=== PATIENT | male | born 1955 | race Caucasian/White ===

== ENCOUNTER 2017-06-23 16:28 | Inpatient (IN) ==
--- NOTE | 2017-06-23 17:00 | Emergency Department Note ---
Disposition Clinical Impression: SOB (shortness of breath), Hypoxia, JOSIE (acute kidney injury) Fever Qualifiers: Fever type: unspecified Qualified Code(s): R50.9 - Fever, unspecified Sepsis Qualifiers: Sepsis type: sepsis due to unspecified organism Qualified Code(s): A41.9 - Sepsis, unspecified organism Disposition: Admitted As Inpatient Condition: Serious Time of Disposition: 22:55 Fever HPI - General Chief Complaint: ED Fever Stated Complaint: fever Time Seen by Provider: 06/23/17 16:30 Source: patient, EMS Limitations: no limitations Nursing Notes Reviewed: Yes Vital Signs Reviewed: Yes - History of Present Illness HPI Narrative: 60-year-old male brought in via EMS from [facility] for fever, shortness of breath, weakness, and bilateral pitting edema x 1 day nausea vomiting and diarrhea started today. Patient has a history of renal transplant in 2000 and is on cyclosporine. EMS states that the resident's at a assisted are all sick with the same symptoms. Patient complains of 4 bouts of watery stool, hypertensive vomiting, no blood in either secretions. Patient denies a history of CHF, SD, COPD. Patient denies any recent surgeries within the past 2 months, prior history of PE or DVT, and history of neoplasm - Related Data Home Medications Medication Instructions Recorded Confirmed Acetaminophen [Non-Aspirin] 325 mg PO Q6H PRN 06/23/17 06/23/17 Allopurinol [Zyloprim] 300 mg PO DAILY 06/23/17 06/23/17 Aspirin [Lo-Dose Aspirin EC] 81 mg PO DAILY 06/23/17 06/23/17 Atenolol [Tenormin] 25 mg PO BID 06/23/17 06/23/17 Docusate Sodium [Dok] 200 mg PO QAM 06/23/17 06/23/17 Ergocalciferol (VITAMIN D2) 50,000 unit PO DAILY 06/23/17 06/23/17 [Vitamin D2] Famotidine [Heartburn Prevention] 20 mg PO DAILY 06/23/17 06/23/17 Furosemide [Lasix] 20 mg PO BID 06/23/17 06/23/17 Loratadine [Allergy Relief] 10 mg PO DAILY 06/23/17 06/23/17 Potassium Chloride [K-Tab ER] 20 meq PO QAM 06/23/17 06/23/17 Pravastatin Sodium [Pravachol] 40 mg PO HS 06/23/17 06/23/17 Sennosides/Docusate Sodium 2 tab PO DAILY PRN 06/23/17 06/23/17 [Senna-Docusate Sodium Tablet] Sertraline [Zoloft] 25 mg PO DAILY 06/23/17 06/23/17 Sulfamethoxazole/Trimeth DS 1 tab PO QAM 06/23/17 06/23/17 [Bactrim DS] amLODIPine [Norvasc] 5 mg PO DAILY 06/23/17 06/23/17 cycloSPORINE [Cyclosporine] 100 mg PO BID 06/23/17 06/23/17 predniSONE [PredniSONE] 10 mg PO DAILY 06/23/17 06/23/17 Allergies Allergy/AdvReac Type Severity Reaction Status Date / Time No Known Allergies Allergy Verified 06/19/15 16:58 All systems ED: reviewed and negative except as stated. Review of Systems: As Per HPI Constitutional: Reports: fever, weakness Respiratory: Reports: dyspnea Gastrointestinal: Reports: nausea, vomiting, diarrhea Fever PMH - Past Medical History Medical history: Reports: hyperlipidemia, hypertension Surgical history: Reports: other (renal transplant) Psychiatric history: Reports: depression - Social History Smoking Status: Former smoker Alcohol use: Reports: occasionally Drug use: Reports: none Physical Exam Vital Signs Temperature 98.1 F 06/23/17 16:31 Pulse Rate 100 06/23/17 16:31 Respiratory Rate 18 06/23/17 16:31 Blood Pressure 136/76 06/23/17 16:31 O2 Sat by Pulse Oximetry 84 06/23/17 16:31 Temperature 98.1 F 06/23/17 16:31 Pulse Rate 100 06/23/17 16:31 Respiratory Rate 18 06/23/17 16:31 Blood Pressure 136/76 06/23/17 16:31 O2 Sat by Pulse Oximetry 95 06/23/17 16:54 Oxygen Delivery Oxygen Delivery Nasal Cannula CONSTITUTIONAL: Ill-appearing but nontoxic appearing; well-nourished; A&O X 3, in apparent distress. Patient is panting and has conversational dyspnea HEAD: Normocephalic; atraumatic EYES: PERRL, no scleral icterus NOSE: The nose is normal in appearance without rhinorrhea NECK: No JVD or distended neck veins RESP: Shallow chest excursion with respiration; breath sounds clear and equal bilaterally in upper lung ; no wheezes, rhonchi, but rales bilateral lower lung [place] CARD: Regular rhythm initially, but when patient was placed on a monitor and heart rate read 209 bpm. Heart was auscultated again very fast rhythm heard with Gallops without murmurs, rub ABD: Non-distended; tender to palpation in left lower quadrant and right lower quadrant surrounding patient's kidney implant, soft, without rigidity, rebound or guarding,no pulsatile mass CHEST: No pain with palpation SKIN: Normal for age and race; warm and dry without diaphoresis ; no apparent lesions EXTREMITIES: Pulses are 2 plus and equal times 4 extremities, no muscle tenderness but bilateral 3+ pitting edema in lower extremities - General Limitations: no limitations General appearance: alert, in no apparent distress Course Course Narrative: Pt had - Reevaluation(s) Reevaluation #1: covering for Sepsis since patient is immunosuppressed and history of fever at the assisted and is currently tachycardic. Patient is afebrile now but was given Tylenol 2 hours ago. Time: 17:46 Reevaluation #2: Patient's treatment is in progress but is still waiting for the rest of his antibiotics to be brought up from pharmacy. Patient states she has no complaints at this time Time: 19:26 Reevaluation #3: pt is doing well. breathing is improved. Time: 20:13 - Consultations Consultation #1: Dr. Chopra the hospitalist acceptted the patient for admission Time: 21:09 Vital Signs Temperature 98.1 F 06/23/17 16:31 Pulse Rate 100 06/23/17 16:31 Respiratory Rate 18 06/23/17 16:31 Blood Pressure 136/76 06/23/17 16:31 O2 Sat by Pulse Oximetry 84 06/23/17 16:31 Temperature 100.2 F H 06/23/17 22:05 Pulse Rate 91 06/23/17 20:16 Respiratory Rate 20 06/23/17 22:05 Blood Pressure 172/96 06/23/17 22:05 O2 Sat by Pulse Oximetry 94 06/23/17 20:16 Oxygen Delivery Oxygen Delivery Nasal Cannula Fever - MDM Narrative Medical decision making narrative: Patient is primarily concerned for sepsis given patient's status of immunosuppression with associated high fever recorded earlier at the detention facility. Patient has hypoxia severe shortness of breath orthopnea which is concerning for acute CHF, diarrhea with nausea and vomiting concerning for C. difficile. Patient has tenderness around his implanted kidney site which also raises concern for possible complication of the graft to include infection, or failure. Patient started on 1500 mg of IV vancomycin and 2 g of IV cefepime as well as broad-spectrum antibiotics to cover for possible sepsis. Patient was given one 500 mL bolus of IV fluids for his elevation of creatinine which is mild but given the patient only has one kidney that was transplanted patient is at risk for serious renal complications. Patient's chest x-ray shows pulmonary vascular congestion, and along with bilateral pitting edema sign of possible CHF. This may be due to complications of his renal system. Review of patient's labs show negative lactic acid, negative elevation of troponin, negative elevation of WBC. Currently there is no identification of a infectious source but patient is being assessed for C. difficile, and awaiting culture results. Regardless, the patient is expected to be admitted for further treatment and evaluation. Patient understands and agrees to treatment plan for admission. Patient was accepted for admission by Dr. Chopra the hospitalist in improved condition what he was when he was brought in by EMS. Patient is breathing better but still needs supplemental O2 to maintain his O2 sats above 90%. 40 mg IV Lasix ordered and administered to patient. - Lab Data Lab results reviewed: Yes I reviewed the patient's lab results. Lab results narrative: Short CBC 06/23/17 Range/Units 17:19 WBC 8.8 (4.3-11.1) K/mcL Hgb 14.3 (12.9-16.9) g/dL Hct 42.2 (37.5-50.1) % Plt Count 136 L (140-400) K/mcL Neutrophils # 7.5 (1.6-8.9) K/mcL BMP 06/23/17 Range/Units 16:53 Sodium 139 (136-145) mEq/L Potassium 4.2 (3.5-5.1) mEq/L Chloride 107 (98-107) mEq/L Carbon Dioxide 28 (23-29) mEq/L BUN 28 H (8-23) mg/dL Creatinine 1.39 H (0.70-1.30) mg/dL Glucose 113 H (70-105) mg/dL Calcium 8.5 L (8.6-10.3) mg/dL Cardiac Enzymes 06/23/17 Range/Units 16:49 Troponin I < 0.03 (< 0.04) ng/mL Urine 06/23/17 Range/Units 19:05 Urine Color Yellow (Yellow) Urine Clarity Clear (Clear) Urine pH 6.0 (5.0-8.0) pH Units Ur Specific [place] 1.018 (1.010-1.025) Urine Protein 100 H (Neg-Trace) mg/dL Urine Glucose (UA) Normal (Normal) mg/dL Result diagrams: 06/23/17 17:19 06/23/17 16:53 Lab Results 06/23/17 06/23/17 06/23/17 Range/Units 16:49 16:53 17:19 WBC 8.8 (4.3-11.1) K/mcL RBC 4.09 L (4.19-5.50) M/mcL Hgb 14.3 (12.9-16.9) g/dL Hct 42.2 (37.5-50.1) % MCV 103.2 H (83.0-100.0) fL MCH 35.0 H (28.0-33.3) pg MCHC 33.9 (31.6-35.5) g/dL RDW 13.8 (11.5-14.5) % Plt Count 136 L (140-400) K/mcL MPV 10.6 (9.4-12.4) fL Immature Gran % 0.2 (0-4) % Seg Neutrophils % 85.5 % Lymphocytes % 1.6 % Monocytes % 10.6 % Eosinophils % 2.0 % Basophils % 0.1 % Neutrophils # 7.5 (1.6-8.9) K/mcL Lymphocytes # 0.1 L (0.6-4.6) K/mcL Monocytes # 0.9 (0.0-1.3) K/mcL Eosinophils # 0.2 (0.0-0.6) K/mcL Basophils # 0.0 (0.0-0.2) K/mcL Platelet Estimate Slight Decrease L (Normal) Sodium 139 (136-145) mEq/L Potassium 4.2 (3.5-5.1) mEq/L Chloride 107 (98-107) mEq/L Carbon Dioxide 28 (23-29) mEq/L BUN 28 H (8-23) mg/dL Creatinine 1.39 H (0.70-1.30) mg/dL Est GFR ( Amer) > 60 (> 60) Est GFR (Non-Af Amer) 52 L (> 60) BUN/Creatinine Ratio 20 (6-26) Glucose 113 H (70-105) mg/dL Calculated Osmolality 294 (280-300) Lactic Acid (0.5-2.2) mmol/L Calcium 8.5 L (8.6-10.3) mg/dL Troponin I < 0.03 (< 0.04) ng/mL Urine Color (Yellow) Urine Clarity (Clear) Urine pH (5.0-8.0) pH Units Ur Specific [place] (1.010-1.025) Urine Protein (Neg-Trace) mg/dL Urine Glucose (UA) (Normal) mg/dL Urine Ketones (Negative) mg/dL Urine Blood (Negative) Urine Nitrite (Negative) Urine Bilirubin (Negative) Urine Urobilinogen (Normal) mg/dL Ur Leukocyte Esterase (Negative) Urine Microscopic RBC (0-3) per hpf Urine Microscopic WBC (0-3) per hpf Ur Squamous Epith Cells (None-Few) per lpf Urine Bacteria (None-Few) per hpf Hyaline Casts (None-Few) per lpf Ur Culture Indicated? (NO) 06/23/17 06/23/17 Range/Units 17:24 19:05 WBC (4.3-11.1) K/mcL RBC (4.19-5.50) M/mcL Hgb (12.9-16.9) g/dL Hct (37.5-50.1) % MCV (83.0-100.0) fL MCH (28.0-33.3) pg MCHC (31.6-35.5) g/dL RDW (11.5-14.5) % Plt Count (140-400) K/mcL MPV (9.4-12.4) fL Immature Gran % (0-4) % Seg Neutrophils % % Lymphocytes % % Monocytes % % Eosinophils % % Basophils % % Neutrophils # (1.6-8.9) K/mcL Lymphocytes # (0.6-4.6) K/mcL Monocytes # (0.0-1.3) K/mcL Eosinophils # (0.0-0.6) K/mcL Basophils # (0.0-0.2) K/mcL Platelet Estimate (Normal) Sodium (136-145) mEq/L Potassium (3.5-5.1) mEq/L Chloride (98-107) mEq/L Carbon Dioxide (23-29) mEq/L BUN (8-23) mg/dL Creatinine (0.70-1.30) mg/dL Est GFR ( Amer) (> 60) Est GFR (Non-Af Amer) (> 60) BUN/Creatinine Ratio (6-26) Glucose (70-105) mg/dL Calculated Osmolality (280-300) Lactic Acid 1.0 (0.5-2.2) mmol/L Calcium (8.6-10.3) mg/dL Troponin I (< 0.04) ng/mL Urine Color Yellow (Yellow) Urine Clarity Clear (Clear) Urine pH 6.0 (5.0-8.0) pH Units Ur Specific [place] 1.018 (1.010-1.025) Urine Protein 100 H (Neg-Trace) mg/dL Urine Glucose (UA) Normal (Normal) mg/dL Urine Ketones Negative (Negative) mg/dL Urine Blood Negative (Negative) Urine Nitrite Negative (Negative) Urine Bilirubin Small H (Negative) Urine Urobilinogen Normal (Normal) mg/dL Ur Leukocyte Esterase Negative (Negative) Urine Microscopic RBC 0-3 (0-3) per hpf Urine Microscopic WBC 0-3 (0-3) per hpf Ur Squamous Epith Cells Few (None-Few) per lpf Urine Bacteria None Seen (None-Few) per hpf Hyaline Casts None Seen (None-Few) per lpf Ur Culture Indicated? NO (NO) - Radiology Data Radiology results reviewed: Yes I reviewed the patient's radiology results. Chest X-Ray 06/23/17 16:49 IMPRESSION: Mild cardiomegaly. Pulmonary vascular congestion versus AP expiratory technique on a large patient. Lungs are otherwise clear. Bilateral shoulder arthropathy. D/ / Emerson Pereira MD / Emerson Pereira MD Interpreting Provider: Emerson Pereira MD - EKG Data EKG attestation: Yes I reviewed and interpreted this EKG. EKG results narrative: EKG taken in June 2017 at 1640 hrs. shows sinus rhythm at a rate of [address] elevations or depressions in the leads, no QRS widening or QT prolongation. Signs of Brugada, Wellens, WPW. However there is T-wave inversion in aVL.
[2017-06-23] MEDS ORDERED: Ondansetron 4 MG/2 ML VIAL IVP PRN ×2 (17:01→21:08)
[2017-06-23] MEDS ORDERED: Vancomycin (wt based) 1,000 MG VIAL IVPB SCH (18:00)
[2017-06-23 18:04] LABS: BUN/Creatinine Ratio 20 (6-26); Blood Urea Nitrogen 28 mg/dL (8-23); Calcium 8.5 mg/dL (8.6-10.3); Carbon Dioxide 28 mEq/L (23-29); Chloride 107 mEq/L (98-107); Glucose 113 mg/dL (70-105); Osmolality,Calculated 294 (280-300); Potassium 4.2 mEq/L (3.5-5.1); Sodium 139 mEq/L (136-145); eGFR For African Americans > 60 (> 60); eGFR For Non-African Americans 52 (> 60)
[2017-06-23] MEDS ORDERED: Vancomycin (wt based) 1,000 MG VIAL IVPB ONE (18:20)
[2017-06-23] MEDS ORDERED: 0.9 % Sodium Chloride 500 ML IVC ONE (19:10)
[2017-06-23 19:21] LABS: Bilirubin,Urine Small (Negative); Blood,Urine Negative (Negative); Clarity,Urine Clear (Clear); Color,Urine Yellow (Yellow); Glucose,Urine (UA) Normal (Normal); Ketones,Urine Negative (Negative); Leukocyte Esterase,Urine Negative (Negative); Nitrite,Urine Negative (Negative); Protein,Urine 100 mg/dL (Neg-Trace); Specific Gravity,Urine 1.018 (1.010-1.025); Urobilinogen,Urine Normal (Normal)
[2017-06-23 19:25] LABS: Bacteria,Urine None Seen per hpf (None-Few); Hyaline Casts,Urine None Seen per lpf (None-Few); RBC,Urine 0-3 per hpf (0-3); Squamous Epithelial Cell,Urine Few per lpf (None-Few); WBC,Urine 0-3 per hpf (0-3)
[2017-06-23 20:20] LABS: Basophils % 0.1 %; Eosinophils # 0.2 K/mcL (0.0-0.6); Hematocrit 42.2 % (37.5-50.1); Hemoglobin 14.3 g/dL (12.9-16.9); Immature Granulocytes % 0.2 % (0-4); Lymphocytes # 0.1 K/mcL (0.6-4.6); Lymphocytes % 1.6 %; Mean Corpuscular HGB Conc 33.9 g/dL (31.6-35.5); Mean Corpuscular Volume 103.2 fL (83.0-100.0); Mean Platelet Volume 10.6 fL (9.4-12.4); Monocytes # 0.9 K/mcL (0.0-1.3); Monocytes % 10.6 %; Neutrophils # 7.5 K/mcL (1.6-8.9); Platelet Count 136 K/mcL (140-400); Red Blood Count 4.09 M/mcL (4.19-5.50); Red Cell Distribution Width 13.8 % (11.5-14.5); Segmented Neutrophils % 85.5 %
[2017-06-23] MEDS ORDERED: Cefepime HCl 2,000 MG in Water for inj. (sterile) 20 ML 20 ML IVP ONE (21:00)
[2017-06-23] MEDS ORDERED: Furosemide 40 MG/4 ML VIAL IVP ONE (21:07)
[2017-06-23 21:08] LABS: Platelet Estimate Slight Decrease (Normal)
[2017-06-23] MEDS ORDERED: *HR* Promethazine 25 MG/ML VIAL IVP PRN (21:08)
[2017-06-23] MEDS ORDERED: *HR* OxyCODONE Immed Rel 5 MG TABLET PO PRN (21:08)
[2017-06-23] MEDS ORDERED: Naloxone 0.4 MG/ML INJ IVP PRN (21:08)
[2017-06-23] MEDS ORDERED: Sennosides/Docusate Sodium TABLET PO PRN (21:16)
--- NOTE | 2017-06-23 22:46 | Internal Med History&Physical ---
Date of Encounter: 06/23/17 Time of Encounter: 21:35 Internal Medicine - H&P: HPI Chief complaint: Fever, Abdominal pain Admitted From: Emergency Dept Plans for Post Hospital Care: Transfer [facility] Facility History of present illness: Mr. Woodruff is a 62 year old male with known systolic CHF, HTN, HLD, COPD not on home O2 dependent, RA, Gout s/p Rt renal transplant on chronic immuno suppressive therapy with cyclosporine and steroids who is a shelter resident at local SNF was brought into ER today c/o pt does have fever with chills, weakness, nausea / vomiting with diarrhea. he did have 3 loose watery BM's today. Denied any CP. Pt is alert, awake and O x 3. he denied any cold / cough / URI symptoms. He denied any abdominal pain now. He also c/o worsening swelling in both legs, does have moderate BOB. Past Med Surg Social Fam HX - Past Medical History Medical history: hyperlipidemia, hypertension Psychiatric history: depression - Past Surgical History Surgical History: other (renal transplant) - Social History Smoking Status: Former smoker Smokeless Tobacco Status: No Alcohol use: occasionally Drug use: none - Additional Family History Additional family history: Family hsitory reviewed and non contribuitory to current problem. Internal Medicine - H&P: Meds Acetaminophen [Non-Aspirin] 325 mg PO Q6H PRN 06/23/17 [History] Allopurinol [Zyloprim] 300 mg PO DAILY 06/23/17 [History] Aspirin [Lo-Dose Aspirin EC] 81 mg PO DAILY 06/23/17 [History] Atenolol [Tenormin] 25 mg PO BID 06/23/17 [History] Docusate Sodium [Dok] 200 mg PO QAM 06/23/17 [History] Ergocalciferol (VITAMIN D2) [Vitamin D2] 50,000 unit PO DAILY 06/23/17 [History] Famotidine [Heartburn Prevention] 20 mg PO DAILY 06/23/17 [History] Furosemide [Lasix] 20 mg PO BID 06/23/17 [History] Loratadine [Allergy Relief] 10 mg PO DAILY 06/23/17 [History] Potassium Chloride [K-Tab ER] 20 meq PO QAM 06/23/17 [History] Pravastatin Sodium [Pravachol] 40 mg PO HS 06/23/17 [History] Sennosides/Docusate Sodium [Senna-Docusate Sodium Tablet] 2 tab PO DAILY PRN 12/02 [History] Sertraline [Zoloft] 25 mg PO DAILY 06/23/17 [History] Sulfamethoxazole/Trimeth DS [Bactrim DS] 1 tab PO QAM 06/23/17 [History] amLODIPine [Norvasc] 5 mg PO DAILY 06/23/17 [History] cycloSPORINE [Cyclosporine] 100 mg PO BID 06/23/17 [History] predniSONE [PredniSONE] 10 mg PO DAILY 06/23/17 [History] 3 Allergy/AdvReac Type Severity Reaction Status Date / Time No Known Allergies Allergy Verified 06/19/15 16:58 All Systems PM: A 10-system review of systems was performed and is negative for pertinent findings except as documented above in the HPI. Review of systems: All the systems are reviewed everything is benign except the systems and symptoms I mentioned in the history of present illness - Constitutional Vitals: Temp Pulse Resp BP Pulse Ox 100.2 F H 91 20 172/96 94 06/23/17 22:05 06/23/17 20:16 06/23/17 22:05 06/23/17 22:05 06/23/17 20:16 General appearance: Present: A&O X 3, no acute distress, answers questions appropriately - Head Head exam: Present: atraumatic, normal inspection - Neck Neck exam general surgery: Present: supple - Respiratory Respiratory exam: Present: decreased breath sounds. Absent: rales, respiratory distress, rhonchi, wheezes - Cardiovascular Cardiovascular exam: Present: RRR, +S1, +S2. Absent: tachycardia - GI/Abdominal GI/Abdominal exam: Present: distended, normal bowel sounds, soft. Absent: rebound, rigid, splenomegaly, tenderness - Extremities Exam Extremities exam: Present: pedal edema (2+). Absent: calf tenderness, tenderness - Back Exam Back exam: Absent: CVA tenderness (L), CVA tenderness (R) - Neurological Exam Neurological exam: Present: alert, oriented X3 - Psychiatric Psychiatric exam: Present: normal affect, normal mood Internal Med - H&P Results - Labs CBC & Chem 7: 06/23/17 17:19 06/23/17 16:53 - Assessment and plan (1) SIRS (systemic inflammatory response syndrome) Current Visit: Yes Status: Acute Assessment and plan: admit the pt into Tele Does meet SIRS criteria with tachycardia and T max 100.2 Unclear etiology For his diarrhea need to r/o C. DIff Reviewed his CXR - showed inc vascular congestion. No consolidations noticed Pt received empirical abx Cefepime and Vancomycin in the ER will hold on abx for now, since there is no clear etiology for source of inf will f/u on blood cx UA- WNL I will check step pneumonia, Legionella , sputum culture and respiratory viral panel (2) Acute combined systolic and diastolic congestive heart failure Current Visit: Yes Status: Acute Assessment and plan: Reviewed his echocardiogram from 06/19/2017 showed LVEF 50%, Mild diastolic dysfunction started on IV diuresis with Lasix 40 BID Trend on trop cont on tele resumed other home meds (3) Acute respiratory failure with hypoxia Current Visit: Yes Status: Acute Assessment and plan: Due to CHF exacerbation reviewed CXR showed mild to moderate pulm vascular congestion No infiltrates noticed cont IV Lasix (4) SOB (shortness of breath) Current Visit: Yes Status: Acute Assessment and plan: Due to CHF exacerbation cont close monitoring (5) CKD (chronic kidney disease), stage III Current Visit: Yes Status: Acute Assessment and plan: stable Cr (6) HTN (hypertension) Current Visit: Yes Status: Acute Assessment and plan: stable with home meds resumed home meds Qualifiers: Hypertension type: essential hypertension Qualified Code(s): I10 - Essential (primary) hypertension (7) Diarrhea Current Visit: Yes Status: Acute Assessment and plan: Will check for C. Diff since he is high risk pt cont close monitoring Qualifiers: Diarrhea type: unspecified type Qualified Code(s): R19.7 - Diarrhea, unspecified (8) Abdominal pain Current Visit: Yes Status: Acute Assessment and plan: unclear etiology no RUQ abd pain reviewed his recent U/S abd and Ct of Abd showed sludge with small gallstone or polyp will check LFT's now cont close monitoring Qualifiers: Abdominal location: generalized Qualified Code(s): R10.84 - Generalized abdominal pain (9) S/P kidney transplant Current Visit: Yes Status: Acute Assessment and plan: Stable Cr cont home dose of Cyclosporine and prednisone - Time Spent With Patient Total time spent is greater than 50% in coordination of care (as documented) at patient's floor/unit and/or counseling patient:
[2017-06-24] MEDS ORDERED: *HR* Heparin 5,000 UNIT/ML VIAL SQ SCH (06:00)
[2017-06-24 06:48] LABS: Albumin 3.1 g/dL (3.5-5.7); Albumin/Globulin Ratio 1.3 (1.1-2.2); Bilirubin,Total 0.5 mg/dL (0.3-1.0); Chol/HDL Ratio 3.3 (0-4.9); Globulin 2.3 g/dL (2.4-3.5); Magnesium 1.6 mg/dL (1.6-2.6); Potassium 4.2 mEq/L (3.5-5.1); Total Protein 5.4 g/dL (6.4-8.9)
[2017-06-24 07:08] LABS: Mean Corpuscular HGB Conc 32.3 g/dL (31.6-35.5); Red Cell Distribution Width 13.9 % (11.5-14.5)
[2017-06-24 07:10] LABS: Eosinophils # 0.2 K/mcL (0.0-0.6); Hematocrit 42.4 % (37.5-50.1); Hemoglobin 13.7 g/dL (12.9-16.9); Immature Platelets 1.8 % (1.1-6.1); Mean Corpuscular Hemoglobin 35.1 pg (28.0-33.3); Mean Corpuscular Volume 108.7 fL (83.0-100.0); Mean Platelet Volume 10.8 fL (9.4-12.4); Platelet Count 92 K/mcL (140-400)
[2017-06-24 08:34] LABS: Lymphocytes # 0.2 K/mcL (0.6-4.6); Monocytes # 0.4 K/mcL (0.0-1.3); Neutrophils # 5.1 K/mcL (1.6-8.9); Platelet Estimate Decreased (Normal)
[2017-06-24] MEDS: amLODIPine 5 MG TABLET PO SCH (09:22)
[2017-06-24] MEDS: Aspirin Enteric Coated 81 MG Tablet PO SCH (09:22)
[2017-06-24] MEDS: Sulfamethoxazole/Trimeth DS 1 EACH TABLET PO SCH (09:22)
[2017-06-24] MEDS: Loratadine 10 MG TABLET PO SCH (09:22)
[2017-06-24] MEDS: predniSONE 10 MG TABLET PO SCH (09:23)
[2017-06-24] MEDS: Cholecalciferol (D-3) 1,000 UNIT TABLET PO SCH (09:23)
[2017-06-24] MEDS: Famotidine 20 MG TABLET PO SCH (09:23)
[2017-06-24] MEDS: Acetaminophen 325 MG TABLET PO PRN (09:24)
[2017-06-24] MEDS: CycloSPORINE (SandIMMUNE) 100 MG CAPSULE PO SCH ×2 (09:37→20:53)
[2017-06-24 10:49] LABS: Adenovirus Not Detected (Not Detect); Bordetella Pertussis Not Detected (Not Detect); Chlamydophila pneumoniae Not Detected (Not Detect); Coronavirus 229E Not Detected (Not Detect); Coronavirus HKU1 Not Detected (Not Detect); Coronavirus NL63 Not Detected (Not Detect); Coronavirus OC43 Not Detected (Not Detect); Human Metapneumovirus Not Detected (Not Detect); Human Rhinovirus/Enterovirus Not Detected (Not Detect); Influenza A Subtype 2009 H1 Not Detected (Not Detect); Influenza A Untypeable Not Detected (Not Detect); Influenza B Not Detected (Not Detect); Mycoplasma pneumoniae Not Detected (Not Detect); Parainfluenza Virus 1 Not Detected (Not Detect); Parainfluenza Virus 2 Not Detected (Not Detect); Parainfluenza Virus 3 Not Detected (Not Detect); Parainfluenza Virus 4 Not Detected (Not Detect); Respiratory Syncytial Virus Not Detected (Not Detect)
--- NOTE | 2017-06-24 16:23 | Internal Med Progress Note ---
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 daily weights Fluid restriction 1500 mL's Low-sodium diet We will consult cardiology-according to patient does not have history of CHF (2) Acute respiratory failure with hypoxia Current Visit: Yes Status: Acute Assessment and plan: Due to CHF exacerbation CXR showed mild to moderate pulm vascular congestion No infiltrates noticed cont IV Lasix Continue with oxygen titrated maintain SPO2 greater than 92% (3) SIRS (systemic inflammatory response syndrome) Current Visit: Yes Status: Acute Assessment and plan: Patient did present with tachycardia and temperature 100.2-he has been afebrile since admission he has not had any more stool since yesterday Respiratory panel was negative urinalysis ok, chest x-ray with pulmonary vascular congestion-suspect this may be viral-awaiting blood cultures (4) SOB (shortness of breath) Current Visit: Yes Status: Acute Assessment and plan: 1 most likely related to CHF-feels that his respiratory state has improved requiring oxygen supplementation we will attempt to wean oxygen Continue to diurese patient (5) CKD (chronic kidney disease), stage III Current Visit: Yes Status: Acute Assessment and plan: Creatinine is elevated today at 1.59-patient states he is seeing Dr. Hilton in the past-we will consult Dr. Hilton concerning diuresing patient-as well as patient has a history of renal transplant Monitor intake and output daily weights Avoid nephrotoxins (6) HTN (hypertension) Current Visit: Yes Status: Acute Assessment and plan: stable with home meds resumed home meds Qualifiers: Hypertension type: essential hypertension Qualified Code(s): I10 - Essential (primary) hypertension (7) Diarrhea Current Visit: Yes Status: Acute Assessment and plan: This seems to have resolved-patient has not had any stool since yesterday cont close monitoring Qualifiers: Diarrhea type: unspecified type Qualified Code(s): R19.7 - Diarrhea, unspecified (8) Abdominal pain Current Visit: Yes Status: Acute Assessment and plan: This has resolved -unclear etiology LFTs within normal limits no RUQ abd pain reviewed previous U/S abd and Ct of Abd dated 06/19 2015 showed sludge with small gallstone or polyp cont close monitoring Qualifiers: Abdominal location: generalized Qualified Code(s): R10.84 - Generalized abdominal pain (9) S/P kidney transplant Current Visit: Yes Status: Acute Assessment and plan: Creatinine elevated at 1.5-appears his baseline from 1.2 We will consult nephrology cont home dose of Cyclosporine and prednisone (10) Thrombocytopenia Current Visit: Yes Status: Acute Assessment and plan: Platelets are 92 today down from yesterday 136 we will hold heparin for now recheck in a.m. monitor for any signs and symptoms bleeding (11) Bandemia without diagnosis of specific infection Current Visit: Yes Status: Acute Assessment and plan: Suspect this may be viral infection awaiting blood culture results we will continue to monitor (12) DVT prophylaxis Current Visit: Yes Status: Acute Assessment and plan: 1 we will start heparin due to thrombocytopenia and place SCDs - Time Spent With Patient Total time spent is greater than 50% in coordination of care (as documented) at patient's floor/unit and/or counseling patient: - Subjective Interval history: This patient is new to me I did review medical records . I examined the patient at bedside. Patient states he feels much better, he has not had any more loose stools since yesterday. Denies any abdominal pain nausea or vomiting. He does complain of lower extremity swelling as well as abdominal fullness. Patient denies any past history of congestive heart failure however he states he had a recent echocardiogram is waiting for the results. He does state that he has a history of CK Dhe sees Dr. Hilton-he did have a right renal transplant and is on chronic immunosuppressive therapy. - - Constitutional Vitals: Temp Pulse Resp BP Pulse Ox 97.4 F L 83 18 113/70 95 06/24/17 15:27 06/24/17 15:27 06/24/17 15:27 06/24/17 15:27 06/24/17 15:27 General appearance: Present: A&O X 3, no acute distress, answers questions appropriately - Head Head exam: Present: atraumatic, normocephalic - Eye Eye exam: Present: PERRL, conjuntiva pink, sclera anicteric Pupils: Present: PERRL - Neck Neck exam general surgery: Present: supple, trachea midline. Absent: lymphadenopathy - Respiratory Respiratory exam: Present: CTAB. Absent: accessory muscle use, rales, rhonchi, wheezes - Cardiovascular Cardiovascular exam: Present: RRR, +S1, +S2. Absent: diastolic murmur, gallop, rubs, systolic murmur - GI/Abdominal GI/Abdominal exam: Present: normal bowel sounds, soft, no peritoneal signs. Absent: distended, tenderness - Extremities Exam Extremities exam: Present: pedal edema, warm, radial pulses palpable and symmetrical. Absent: calf tenderness, cyanotic - Neurological Exam Neurological exam: Present: CN II-XII intact, oriented X3, no focal deficits. Absent: pronater drift, facial droop, speech deficit - Skin Skin exam: Present: dry, intact Internal Medicine: Result - Labs CBC & Chem 7: 06/24/17 05:57 06/24/17 05:57 Labs: Short CBC 06/24/17 Range/Units 05:57 WBC 5.9 (4.3-11.1) K/mcL Hgb 13.7 (12.9-16.9) g/dL Hct 42.4 (37.5-50.1) % Plt Count 92 L (140-400) K/mcL Neutrophils # 5.1 (1.6-8.9) K/mcL BMP 06/24/17 05:57 Sodium 138 Potassium 4.2 Chloride 107 Carbon Dioxide 26 BUN 28 H Creatinine 1.59 H Glucose 85 Calcium 8.0 L Cardiac Enzymes 06/23/17 06/24/17 Range/Units 22:34 05:57 Troponin I 0.17 H* 0.04 H* (< 0.04) ng/mL Liver Function 06/24/17 Range/Units 05:57 Total Bilirubin 0.5 (0.3-1.0) mg/dL AST 25 (13-39) Units/L ALT 14 (7-52) Units/L Alkaline Phosphatase 71 (34-104) Units/L Albumin 3.1 L (3.5-5.7) g/dL Consult Discharge Plan - Plan Referrals: NONE,PCP [Primary Care Provider] -
[2017-06-24] MEDS: Furosemide 40 MG/4 ML VIAL IVP SCH (17:23)
[2017-06-24] MEDS ORDERED: Cefepime HCl 2,000 MG in Water for inj. (sterile) 20 ML IVP SCH (18:00)
--- NOTE | 2017-06-24 23:43 | Electrocardiograph Report ---
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
[2017-06-25] MEDS: Acetaminophen 325 MG TABLET PO PRN (05:51)
[2017-06-25 05:53] LABS: Basophils % 0.2 %; Eosinophils # 0.1 K/mcL (0.0-0.6); Eosinophils % 2.6 %; Hematocrit 38.2 % (37.5-50.1); Hemoglobin 12.8 g/dL (12.9-16.9); Immature Granulocytes % 0.2 % (0-4); Lymphocytes # 0.5 K/mcL (0.6-4.6); Lymphocytes % 9.6 %; Mean Corpuscular HGB Conc 33.5 g/dL (31.6-35.5); Mean Corpuscular Hemoglobin 35.5 pg (28.0-33.3); Mean Corpuscular Volume 105.8 fL (83.0-100.0); Mean Platelet Volume 10.2 fL (9.4-12.4); Monocytes # 0.7 K/mcL (0.0-1.3); Monocytes % 13.6 %; Neutrophils # 3.7 K/mcL (1.6-8.9); Platelet Count 105 K/mcL (140-400); Red Blood Count 3.61 M/mcL (4.19-5.50); Red Cell Distribution Width 13.4 % (11.5-14.5); Segmented Neutrophils % 73.8 %
[2017-06-25 07:04] LABS: Calcium 8.4 mg/dL (8.6-10.3); Potassium 4.6 mEq/L (3.5-5.1)
--- NOTE | 2017-06-25 08:20 | Nephrology Consult Note ---
Date of Encounter: 06/25/17 Time of Encounter: 08:18 Assessment and Plan (1) Acute kidney failure, unspecified Current Visit: Yes Status: Acute The patient has a clinical picture of acute kidney injury in the setting of worsening congestive heart failure related to valvular heart disease and pulmonary hypertension. His serum creatinine continues to increase. For that reason I am going to reduce his Lasix dose. I am also going to reduce his beta oren dose. Patient should have a cardiology evaluation and possible PEBBLES for further evaluation of his heart valve disease. Qualifiers: Acute renal failure type: unspecified Qualified Code(s): N17.9 - Acute kidney failure, unspecified (2) Aortic regurgitation Current Visit: Yes Status: Acute Qualifiers: Cardiac valve disease etiology: nonrheumatic Qualified Code(s): I35.1 - Nonrheumatic aortic (valve) insufficiency (3) Mitral regurgitation Current Visit: Yes Status: Acute Qualifiers: Cardiac valve disease etiology: nonrheumatic Qualified Code(s): I34.0 - Nonrheumatic mitral (valve) insufficiency (4) Pulmonary hypertension Current Visit: Yes Status: Acute (5) S/P kidney transplant Current Visit: Yes Status: Acute (6) Rheumatoid arteritis Current Visit: Yes Status: Acute History of Present Illness - History of Present Illness This is a 62-year-old male who is previously been followed for renal transplant. The patient underwent a renal transplant back in the early . His primary renal disease was IgA nephropathy. Patient had done very well from a renal standpoint up until recently. Patient not been seen in the office for a year or 2. He recently came back to the office and was noted to have worsening lower extremity swelling. A outpatient echocardiogram was done which showed moderate to severe aortic regurgitation as well as moderate mitral regurgitation and moderate pulmonary hypertension. Left ventricular ejection fraction was 50%. [facility] He subsequently is been admitted to the hospital because of worsening lower extremity swelling. During his hospitalization and then is gone from 1.39 up to 1.96. Patient reports that his lower extremity swelling is improving. He is not complaining of shortness of breath or orthopnea. He denies any complaints of orthopnea. Past Med Surg Social Fam HX - Past Medical History Medical history: hyperlipidemia, hypertension, RA Psychiatric history: depression - Past Surgical History Surgical History: coronary bypass (CABG), other - Social History Smoking Status: Former smoker Smokeless Tobacco Status: No Alcohol use: occasionally Drug use: none - Family History Mother Living Status: Hx Family Cancer: Yes Father Living Status: Hx Family Cardiac Disorders: Yes Medications and Allergies Acetaminophen [Non-Aspirin] 325 mg PO Q6H PRN 06/23/17 [History] Allopurinol [Zyloprim] 300 mg PO DAILY 06/23/17 [History] Aspirin [Lo-Dose Aspirin EC] 81 mg PO DAILY 06/23/17 [History] Atenolol [Tenormin] 25 mg PO BID 06/23/17 [History] Docusate Sodium [Dok] 200 mg PO QAM 06/23/17 [History] Ergocalciferol (VITAMIN D2) [Vitamin D2] 50,000 unit PO DAILY 06/23/17 [History] Famotidine [Heartburn Prevention] 20 mg PO DAILY 06/23/17 [History] Furosemide [Lasix] 20 mg PO BID 06/23/17 [History] Loratadine [Allergy Relief] 10 mg PO DAILY 06/23/17 [History] Potassium Chloride [K-Tab ER] 20 meq PO QAM 06/23/17 [History] Pravastatin Sodium [Pravachol] 40 mg PO HS 06/23/17 [History] Sennosides/Docusate Sodium [Senna-Docusate Sodium Tablet] 2 tab PO DAILY PRN 12/02 [History] Sertraline [Zoloft] 25 mg PO DAILY 06/23/17 [History] Sulfamethoxazole/Trimeth DS [Bactrim DS] 1 tab PO QAM 06/23/17 [History] amLODIPine [Norvasc] 5 mg PO DAILY 06/23/17 [History] cycloSPORINE [Cyclosporine] 100 mg PO BID 06/23/17 [History] predniSONE [PredniSONE] 10 mg PO DAILY 06/23/17 [History] 3 Allergy/AdvReac Type Severity Reaction Status Date / Time No Known Allergies Allergy Verified 06/19/15 16:58 Review of Systems Constitutional: as per HPI Eyes: bilateral: blurred vision (patient denies), diplopia (patient denies) Nose, mouth and throat: no dizziness, no headache(s) Cardiovascular: dyspnea on exertion, edema, leg edema Respiratory: dyspnea on exertion Gastrointestinal: bloating, no abdominal pain, no change in bowel habits Musculoskeletal: as per HPI, joint swelling, limited range of motion Integumentary: no hirsutism, no striae Neurological: as per HPI, abnormal gait Psychiatric: no depression, no difficulty concentrating Endocrine: as per HPI Hematologic/Lymphatic: no easy bruising, no lymphadenopathy Exam - Vital Signs Vital signs: Initial Vital Signs Temp Pulse Resp BP Pulse Ox 98.1 F 100 18 136/76 84 06/23/17 16:31 06/23/17 16:31 06/23/17 16:31 06/23/17 16:31 06/23/17 16:31 Vital Signs - Last 8 Hours Temp Pulse Resp BP Pulse Ox 06/25/17 06:34 98.0 F 85 14 120/75 93 06/25/17 04:10 98.1 F 80 16 125/77 96 Intake and Output 06/24/17 06/25/17 06/25/17 23:59 07:59 15:59 Intake Total 240 / 240 Output Total 400 / 400 Balance -160 / -160 Intake: Oral 240 / 240 Output: Urine 400 / 400 Other: Weight 105 kg Patient Weight 06/25/17 23:59 Weight 105 kg - General Appearance Exam: Patient is alert and oriented. He is in no acute distress. Lungs diminished breath sounds. Heart regular rate and rhythm with a 2/6 talk ejection murmur. Abdomen appears somewhat distended and somewhat firm. There is no guarding rigidity nor tenderness. Lower actually show 1-2+ lower extremity swelling. This is improved compared to when the patient was seen in the office 1-2 weeks ago. The patient has obvious rheumatoid arthritic changes to his hands and fingers. Results - Lab Results 06/25/17 05:27 06/25/17 05:27 Most recent lab results Calcium 8.4 mg/dL (8.6-10.3) L 06/25/17 05:27 Magnesium 1.6 mg/dL (1.6-2.6) 06/24/17 05:57 Consult Discharge Plan - Plan Referrals: NONE,PCP [Primary Care Provider] -
--- NOTE | 2017-06-25 09:03 | Cardiology Consult Note ---
<Nabil Francois - Last Filed: 06/25/17 15:51> Date of Encounter: 06/25/17 Time of Encounter: 09:00 Assessment and Plan (1) Acute combined systolic and diastolic congestive heart failure Current Visit: Yes Status: Acute BNP 340, Troponin 0.17, 0.04, and <0.03, Cr 1.39, 1.59, and 1.96 CXR: Pulmonary vascular congestion EKG: SR 81 bpm, normal axis, normal intervals, and LVH ECHO: 06/19/17: LVEF 50%, indeterminate diastolic function. Mod-Sev aortic regurgitation, mod mitral regurgitation, mild tricuspid, mild pulmonic and recommended PEBBLES IV lasix 40BID stopped due to JOSIE. Nephrology on board, recommend 20mg IV at this time. Patient states symptoms improving Atenolol decreased from 25 to 12.5 given JOSIE per nephrology Fluid restrictions Cumulative I&O's +190 Plan: - PEBBLES ordered for tomorrow to evaluate valvular dysfunction - Agree with nephrology's current recommendations (2) Acute respiratory failure with hypoxia Current Visit: Yes Status: Acute Secondary to CHF exacerbation. See note above. (3) Acute kidney failure, unspecified Current Visit: Yes Status: Acute Nephrology consulted by primary team See note above Qualifiers: Acute renal failure type: unspecified Qualified Code(s): N17.9 - Acute kidney failure, unspecified Discussion w patient/family: The assessment and plan as outlined above was discussed with the patient and/or family members who expressed understanding and agreement. All questions were answered. Thank you for involving us in the care of your patient. Please call with any questions. History of Present Illness Consult date: 06/25/17 Requesting physician: Vijaya Leavitt Consult reason: CHF Chief complaint: NICCI/LE Edema History of present illness: Mr. Woodruff is a 62 year old male hypertension, hyperlipidemia, and renal transplant initially admitted to the hospital with complaints of difficulty in breathing, nausea, vomiting, diarrhea, and lower extremity swelling. Patient states that the morning of 06/23/17 he woke up and notices lower extremities were swollen bilaterally. He states later that morning he began to experience N/V/D and subjective fevers which were treated at the SNF he currently resides and those resolved that day. There was a history of other residents with similar symptoms. Patient was admitted to the hospital with concerns for sepsis vs CHF exacerbation. Patient sees Dr. Lamar for nephrology, requesting PEBBLES for further evaluation of his heart valve disease. Past Med Surg Social Fam HX - Past Medical History Medical history: hyperlipidemia, hypertension, RA Psychiatric history: depression - Past Surgical History Surgical History: other - Social History Smoking Status: Former smoker Smokeless Tobacco Status: No Alcohol use: occasionally Drug use: none - Family History Mother Living Status: Hx Family Cancer: Yes Father Living Status: Hx Family Cardiac Disorders: Yes Medications and Allergies Acetaminophen [Non-Aspirin] 325 mg PO Q6H PRN 06/23/17 [History] Allopurinol [Zyloprim] 300 mg PO DAILY 06/23/17 [History] Aspirin [Lo-Dose Aspirin EC] 81 mg PO DAILY 06/23/17 [History] Atenolol [Tenormin] 25 mg PO BID 06/23/17 [History] Docusate Sodium [Dok] 200 mg PO QAM 06/23/17 [History] Ergocalciferol (VITAMIN D2) [Vitamin D2] 50,000 unit PO DAILY 06/23/17 [History] Famotidine [Heartburn Prevention] 20 mg PO DAILY 06/23/17 [History] Furosemide [Lasix] 20 mg PO BID 06/23/17 [History] Loratadine [Allergy Relief] 10 mg PO DAILY 06/23/17 [History] Potassium Chloride [K-Tab ER] 20 meq PO QAM 06/23/17 [History] Pravastatin Sodium [Pravachol] 40 mg PO HS 06/23/17 [History] Sennosides/Docusate Sodium [Senna-Docusate Sodium Tablet] 2 tab PO DAILY PRN 12/02 [History] Sertraline [Zoloft] 25 mg PO DAILY 06/23/17 [History] Sulfamethoxazole/Trimeth DS [Bactrim DS] 1 tab PO QAM 06/23/17 [History] amLODIPine [Norvasc] 5 mg PO DAILY 06/23/17 [History] cycloSPORINE [Cyclosporine] 100 mg PO BID 06/23/17 [History] predniSONE [PredniSONE] 10 mg PO DAILY 06/23/17 [History] 3 Allergy/AdvReac Type Severity Reaction Status Date / Time No Known Allergies Allergy Verified 06/19/15 16:58 All Systems Review: The remainder of the systems were reviewed and are negative - Cardiovascular Cardiovascular: dyspnea at rest, dyspnea on exertion, leg edema, lightheadedness , no chest pain at rest, no chest pain with exertion, no syncope - Respiratory Respiratory: dyspnea, no cough - Gastrointestinal Gastrointestinal: diarrhea, nausea, no abdominal pain Physical Examination Vital Signs, Last 4 Hours Temp Pulse Resp BP Pulse Ox 06/25/17 06:34 98.0 F 85 14 120/75 93 General: Conversant, No Apparent Distress HEENT: Atraumatic, Normocephaly, Mucus Membranes Moist Neck: No JVD, Normal carotid pulses Cardiac: Reg Rate and Rhythm, Normal S1 and S2, No Murmur Lungs: Normal Breath Sounds, No Wheeze, Rales, Rhonchi Neuro: Alert and responsive, No focal deficits noted Abdomen: Soft, Non-Tender Skin: No rashes noted on visualized skin Musculoskeletal: No Chest Wall Tenderness Extremities: No Clubbing, No Cyanosis, Normal Pulses, Other (1+ pitting edema bilaterally) Results 06/25/17 05:27 06/25/17 08:44 Lab Results 06/25/17 06/25/17 05:27 05:27 WBC 5.0 Hgb 12.8 L Hct 38.2 Plt Count 105 L Sodium 140 Potassium 4.6 Chloride 107 Carbon Dioxide 30 H BUN 32 H Creatinine 1.96 H Glucose 112 H Calcium 8.4 L - EKG Interpretation EKG results cardiology: personally reviewed, sinus rhythm, no diagnostic ischemia, other (LVH) Consult Discharge Plan - Plan Referrals: Domenic Moreno DO [Resident] - 07/04/17 3:15 pm NONE,PCP [Primary Care Provider] - <Tristin Bailon - Last Filed: 06/26/17 22:58> Date of Encounter: 06/26/17 Time of Encounter: 16:00 - Attending Attestation I examined this patient and my medical decision-making was reviewed with the Resident Physician. I agree with the documented findings, disposition and treatment plan as described except to the extent set forth below CC: shortness of breath, lower ext swelling. HPI; pt reports four day history of consant coughing, fever and chills. Pt reports he felt fine last week, that these symptoms came on very quickly. He denies chest pain or pressure consistent with previous anginal symptoms. He notes many residents in his ECF are similarly ill. PMH: hyperlipidemia, hypertension, rhuematoid artritis. PE: Agree with findings as above IMP: 1. Acute on chronic combined systolic and diastolic heart failure, unclear etiology, shortness of breath initially improved with diuresis, held due to acute on chronic kidney injury, slowly resolving. 2. Acute respirtory failure secondary to CHF, improving with diuresis 3. Acute on chronic kidney injury: Diuretics/Brett/Beta oren held, resuemed at lower dose, monitoring labs daily. 4. Elevated troponin, initial elevation appears lab error. 5. Aortic regurg on suface echo, not clearly seen, PEBBLES ordered to fully evaluate aortic valve apparatus. Assessment and Plan Discussion w patient/family: The assessment and plan as outlined above was discussed with the patient and/or family members who expressed understanding and agreement. All questions were answered. Thank you for involving us in the care of your patient. Please call with any questions. History of Present Illness History of present illness: Mr. Woodruff is a 62 year old male All Systems Review: The remainder of the systems were reviewed and are negative Physical Examination Vital Signs, Last 4 Hours Temp Pulse Resp BP Pulse Ox 06/26/17 19:48 98.1 F 85 19 155/89 93 Results 06/26/17 06:18 06/26/17 06:18 Lab Results 06/26/17 06/26/17 06/26/17 06:18 06:18 06:18 WBC 5.9 Hgb 12.2 L Hct 36.8 L Plt Count 115 L INR 1.0 APTT 24.9 L Sodium 140 Potassium 4.9 Chloride 108 H Carbon Dioxide 29 BUN 34 H Creatinine 1.67 H Glucose 92 Calcium 9.2
[2017-06-25 09:17] LABS: Albumin 3.2 g/dL (3.5-5.7); Albumin/Globulin Ratio 1.5 (1.1-2.2); Bilirubin,Total 0.4 mg/dL (0.3-1.0); Calcium 8.5 mg/dL (8.6-10.3); Globulin 2.2 g/dL (2.4-3.5); Potassium 4.4 mEq/L (3.5-5.1); Total Protein 5.4 g/dL (6.4-8.9)
[2017-06-25] MEDS: Furosemide 40 MG/4 ML VIAL IVP SCH ×2 (09:36→09:54)
[2017-06-25] MEDS: Aspirin Enteric Coated 81 MG Tablet PO SCH (09:50)
[2017-06-25] MEDS: Loratadine 10 MG TABLET PO SCH (09:51)
[2017-06-25] MEDS: Sulfamethoxazole/Trimeth DS 1 EACH TABLET PO SCH (09:51)
[2017-06-25] MEDS: amLODIPine 5 MG TABLET PO SCH (09:52)
[2017-06-25] MEDS: predniSONE 10 MG TABLET PO SCH (09:53)
[2017-06-25] MEDS: CycloSPORINE (SandIMMUNE) 100 MG CAPSULE PO SCH ×2 (09:53→20:47)
[2017-06-25] MEDS: Cholecalciferol (D-3) 1,000 UNIT TABLET PO SCH (09:53)
[2017-06-25] MEDS: Famotidine 20 MG TABLET PO SCH (09:53)
--- NOTE | 2017-06-25 13:51 | Rheumatology Consult Note ---
Date of Encounter: 06/25/17 Time of Encounter: 12:30 Rheumatology Assess and Plan (1) Polyarthralgia Current Visit: Yes Status: Acute This patient has a reported history of rheumatoid arthritis. On review of rheumatoid serologies in [facility], he was RF and CCP negative. Today he has some edema in his left hand but not associated pain or evidence of synovitis; right hand exam is negative for signs of inflammatory arthritis. He has evidence of joint damage to his bilateral hands. There was a question if rheumatoid arthritis is related to valvular abnormalities; will first try to establish a diagnosis of rheumatoid arthritis. Will check serologies. Given abnormalities of hands, could consider hand xray as outpatient. I am not certain how severe his gout used to be, but it is possible that joint damage could have been from gouty arthritis. I can follow-up on results and review them with him as an outpatient. (2) Chronic idiopathic gout Current Visit: Yes Status: Acute Denies frequent attacks. Will check uric acid. He is currently on allopurinol 300 mg po daily. Rheumatology HPI Consult date: 06/25/17 Requesting physician: Maria E Jean Consult reason: Rheumatoid arthritis Chief complaint: Rheumatoid arthritis History of present illness: Mr. Woodruff is a 62 year old male with PMH of CHF, HTN, HLD, COPD, renal transplant on cyclosporine, gout who presents to [facility] with fevers, diarrhea and shortness of breath. This patient reports that he was having subjective fevers at his nursing facility, diarrhea and worsening shortness of breath. He noted that he was having increased fluid retention in his stomach and camei nto the hospital. He was found to have pulmonary vascular congestion on CXR. TTE with EF 50%, LVH, mod-severe aortic stenosis, moderate mitral regurgitation, moderate pulmonary hypertension. Diuretics changed by nephrology. Cardiology consulted and planning a PEBBLES. Rheumatology was consulted to see if history of rheumatoid arthritis was contributory. This patient reports that he used to have pain in his hands since the . He states that he has never had a formal evaluation by a trading floor operator before but has been told he has rheumatoid arthritis. He has never been placed on a DMARD for rheumatoid arthritis, but he is on cyclosporine for his renal transplant. He states that he currently has swelling in his hands but this is a result of an IV. He states that on a day to day basis, he does not have pain or swelling in his joints. He reports he is unable to walk but it is not due to arthritis and pain. He states he cannot remember why he is not up and walking around but admits to doing transfers. He reports a history of gout that began after he had a kidney transplant. He had been started on allopurinol 300 mg. He states he has not had a gout attack in a while to his knowledge but that most of this is managed by the physician at his facility. He reports his shortness of breath has overall improved; he has no chest pain. Past Med Surg Social Fam HX - Past Medical History Medical history: hyperlipidemia, hypertension, RA Psychiatric history: depression - Past Surgical History Surgical History: coronary bypass (CABG), other - Social History Smoking Status: Former smoker Smokeless Tobacco Status: No Alcohol use: occasionally Drug use: none - Family History Mother Living Status: Hx Family Cancer: Yes Father Living Status: Hx Family Cardiac Disorders: Yes Medications and Allergies Acetaminophen [Non-Aspirin] 325 mg PO Q6H PRN 06/23/17 [History] Allopurinol [Zyloprim] 300 mg PO DAILY 06/23/17 [History] Aspirin [Lo-Dose Aspirin EC] 81 mg PO DAILY 06/23/17 [History] Atenolol [Tenormin] 25 mg PO BID 06/23/17 [History] Docusate Sodium [Dok] 200 mg PO QAM 06/23/17 [History] Ergocalciferol (VITAMIN D2) [Vitamin D2] 50,000 unit PO DAILY 06/23/17 [History] Famotidine [Heartburn Prevention] 20 mg PO DAILY 06/23/17 [History] Furosemide [Lasix] 20 mg PO BID 06/23/17 [History] Loratadine [Allergy Relief] 10 mg PO DAILY 06/23/17 [History] Potassium Chloride [K-Tab ER] 20 meq PO QAM 06/23/17 [History] Pravastatin Sodium [Pravachol] 40 mg PO HS 06/23/17 [History] Sennosides/Docusate Sodium [Senna-Docusate Sodium Tablet] 2 tab PO DAILY PRN 12/02 [History] Sertraline [Zoloft] 25 mg PO DAILY 06/23/17 [History] Sulfamethoxazole/Trimeth DS [Bactrim DS] 1 tab PO QAM 06/23/17 [History] amLODIPine [Norvasc] 5 mg PO DAILY 06/23/17 [History] cycloSPORINE [Cyclosporine] 100 mg PO BID 06/23/17 [History] predniSONE [PredniSONE] 10 mg PO DAILY 06/23/17 [History] 3 Allergy/AdvReac Type Severity Reaction Status Date / Time No Known Allergies Allergy Verified 06/19/15 16:58 All Systems Review: General - no recent weight loss, + weight gain, + fatigue, +fevers Eyes - no redness, loss of vision, dryness/itching/foreign body sensation ENT - no dryness of mouth, oral ulcerations, nasal ulcerations, sore throat, frequent cavities Cardiovascular - no chest pain, palpitations, lightheadedness, syncope or arm/ leg claudication Respiratory - + recent shortness of breath, + intermittent difficulty breathing at night, no pleuritic chest pain and + intermittent cough Gastrointestinal - no nausea, vomiting, + diarrhea, + bloating, no black/tarry stools, blood in stools or heartburn Genitourinary - no pain on urination, hematuria, frothy urine or ulcerations. Musculoskeletal - no morning stiffness, joint swelling, muscle aches, tendon/ ligament swelling or tenderness and no inflammatory back pain Integumentary - no easy bruising, rashes, hives, photosensitivity, skin thickening, alopecia, color changes of hands. No tattoos Neurological - no muscle weakness or paresthesias Hematologic/lymphatic - no tender or swollen glands, history of anemia or blood clots Rheumatology Exam Vital Signs, Last 4 Hours Temp Pulse Resp BP Pulse Ox 06/25/17 11:13 98.8 F 77 16 163/77 95 Exam: General - Alert and oriented x 3, no acute distress and appears comfortable HEENT - Conjunctiva clear with some edema of conjunctiva, no alopecia or hair thinning, + facial erythema, rhinophyma, no nasal or oral mucosal lesions/ ulcerations Heme/Lymph - No cervical or supraclavicular lymph node enlargement or tenderness. No pallor. Heart - S1S2 regular in rate and rhythm without murmurs, clicks or rubs. + left hand peripheral edema. Lungs - Unlabored breathing, clear to auscultation bilaterally without wheezes or crackles; no decrease in chest expansion Abdomen - Soft, nontender, nondistended. 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 Able to bend bilateral knees without effusions. Rheumatology Results 06/25/17 05:27 06/25/17 08:44 All other labs normal. Consult Discharge Plan - Plan Referrals: NONE,PCP [Primary Care Provider] -
--- NOTE | 2017-06-25 19:43 | Internal Med Progress Note ---
Date of Encounter: 06/25/17 Time of Encounter: 11:00 - Assessment and plan (1) Acute combined systolic and diastolic congestive heart failure Current Visit: Yes Status: Acute Assessment and plan: Reviewed his echocardiogram from 06/19/2017 showed LVEF 50%, Mild diastolic dysfunction started on IV diuresis with Lasix 40 BID Troponin- .03, .17 .04 cont on tele-we will obtain vessel builder intake output daily weights Fluid restriction 1500 mL's Low-sodium diet Cardiology has been consulted as well as nephrology PEBBLES ordered for tomorrow to evaluate valvular dysfunction (2) Acute respiratory failure with hypoxia Current Visit: Yes Status: Acute Assessment and plan: Due to CHF exacerbation CXR showed mild to moderate pulm vascular congestion No infiltrates noticed cont IV Lasix Continue with oxygen titrated maintain SPO2 greater than 92% (3) SIRS (systemic inflammatory response syndrome) Current Visit: Yes Status: Acute Assessment and plan: Patient did present with tachycardia and temperature 100.2-he has been afebrile since admission he has not had any more stool since yesterday Respiratory panel was negative urinalysis ok, blood cultures are negative chest x-ray with pulmonary vascular congestion-suspect this may be viral- (4) CKD (chronic kidney disease), stage III Current Visit: Yes Status: Acute Assessment and plan: Creatinine is elevated 1.83 nephrology has been consulted and appreciate their recommendations Lasix has been decreased per nephrology's recommendations Monitor intake and output daily weights Avoid nephrotoxins (5) HTN (hypertension) Current Visit: Yes Status: Acute Assessment and plan: stable with home meds resumed home meds Qualifiers: Hypertension type: essential hypertension Qualified Code(s): I10 - Essential (primary) hypertension (6) Diarrhea Current Visit: Yes Status: Resolved Assessment and plan: This seems to have resolved-patient has not had any stool since admission cont close monitoring Qualifiers: Diarrhea type: unspecified type Qualified Code(s): R19.7 - Diarrhea, unspecified (7) Abdominal pain Current Visit: Yes Status: Acute Assessment and plan: This has resolved -unclear etiology LFTs within normal limits no RUQ abd pain reviewed previous U/S abd and Ct of Abd dated 06/19 2015 showed sludge with small gallstone or polyp cont close monitoring Qualifiers: Abdominal location: generalized Qualified Code(s): R10.84 - Generalized abdominal pain (8) S/P kidney transplant Current Visit: Yes Status: Acute Assessment and plan: Creatinine elevated at 1.5-appears his baseline from 1.2 We will consult nephrology appreciate their recommendations cont home dose of Cyclosporine and prednisone (9) Thrombocytopenia Current Visit: Yes Status: Acute Assessment and plan: Platelets are 105 today we will continue to hold heparin (10) Bandemia without diagnosis of specific infection Current Visit: Yes Status: Acute Assessment and plan: Suspect this may be viral infection-appears to be improving blood cultures are negative (11) DVT prophylaxis Current Visit: Yes Status: Acute Assessment and plan: 1 we will start heparin due to thrombocytopenia and place SCDs - Time Spent With Patient Total time spent is greater than 50% in coordination of care (as documented) at patient's floor/unit and/or counseling patient: - Subjective Interval history: I examined the patient at bedside presently patient denies any pain or discomfort. We did discuss treatment plan concerning possible PEBBLES. I answered patient's questions concerning the procedure. He verbalized understanding he continues to experience lower extremity swelling as well as swelling in his hands - - Constitutional Vitals: Temp Pulse Resp BP Pulse Ox 98.2 F 87 16 143/80 98 06/25/17 18:58 06/25/17 18:58 06/25/17 18:58 06/25/17 18:58 06/25/17 18:58 General appearance: Present: A&O X 3, no acute distress, answers questions appropriately - Head Head exam: Present: atraumatic, normocephalic - Eye Eye exam: Present: PERRL, conjuntiva pink, sclera anicteric Pupils: Present: PERRL - Neck Neck exam general surgery: Present: supple, trachea midline. Absent: lymphadenopathy - Respiratory Respiratory exam: Present: CTAB. Absent: accessory muscle use, rales, rhonchi, wheezes - Cardiovascular Cardiovascular exam: Present: RRR, +S1, +S2. Absent: diastolic murmur, gallop, rubs, systolic murmur - GI/Abdominal GI/Abdominal exam: Present: normal bowel sounds, soft, no peritoneal signs. Absent: distended, tenderness - Extremities Exam Extremities exam: Present: warm, radial pulses palpable and symmetrical. Absent : calf tenderness, cyanotic, pedal edema - Neurological Exam Neurological exam: Present: CN II-XII intact, oriented X3, no focal deficits. Absent: pronater drift, facial droop, speech deficit - Skin Skin exam: Present: dry, intact Internal Medicine: Result - Labs CBC & Chem 7: 06/25/17 05:27 06/25/17 08:44 Labs: Short CBC 06/25/17 Range/Units 05:27 WBC 5.0 (4.3-11.1) K/mcL Hgb 12.8 L (12.9-16.9) g/dL Hct 38.2 (37.5-50.1) % Plt Count 105 L (140-400) K/mcL Neutrophils # 3.7 (1.6-8.9) K/mcL BMP 06/25/17 06/25/17 05:27 08:44 Sodium 140 137 Potassium 4.6 4.4 Chloride 107 106 Carbon Dioxide 30 H 29 BUN 32 H 34 H Creatinine 1.96 H 1.83 H Glucose 112 H 98 Calcium 8.4 L 8.5 L Liver Function 06/25/17 Range/Units 08:44 Total Bilirubin 0.4 (0.3-1.0) mg/dL AST 19 (13-39) Units/L ALT 13 (7-52) Units/L Alkaline Phosphatase 70 (34-104) Units/L Albumin 3.2 L (3.5-5.7) g/dL Consult Discharge Plan - Plan Referrals: NONE,PCP [Primary Care Provider] -
[2017-06-26] MEDS: Acetaminophen 325 MG TABLET PO PRN ×2 (04:17→23:32)
[2017-06-26 07:21] LABS: Basophils % 0.2 %; Eosinophils # 0.2 K/mcL (0.0-0.6); Eosinophils % 3.1 %; Hematocrit 36.8 % (37.5-50.1); Hemoglobin 12.2 g/dL (12.9-16.9); Immature Granulocytes % 0.3 % (0-4); Lymphocytes # 0.8 K/mcL (0.6-4.6); Lymphocytes % 13.1 %; Mean Corpuscular HGB Conc 33.2 g/dL (31.6-35.5); Mean Corpuscular Hemoglobin 34.7 pg (28.0-33.3); Mean Corpuscular Volume 104.5 fL (83.0-100.0); Mean Platelet Volume 10.5 fL (9.4-12.4); Monocytes # 0.8 K/mcL (0.0-1.3); Monocytes % 12.7 %; Neutrophils # 4.2 K/mcL (1.6-8.9); Platelet Count 115 K/mcL (140-400); Red Blood Count 3.52 M/mcL (4.19-5.50); Red Cell Distribution Width 13.4 % (11.5-14.5); Segmented Neutrophils % 70.6 %
[2017-06-26 07:33] LABS: Prothrombin Time 10.8 Seconds (9.4-12.1)
[2017-06-26 07:36] LABS: Activated Partial Thrombo Time 24.9 Seconds (26.0-36.0)
[2017-06-26 07:38] LABS: Calcium 9.2 mg/dL (8.6-10.3); Potassium 4.9 mEq/L (3.5-5.1)
[2017-06-26] MEDS ORDERED: Tetracaine/Benzocaine/Butamben 200MG/SPRAY (100SPY/BOT) MM ONE (08:05)
[2017-06-26] MEDS ORDERED: 0.9 % Sodium Chloride 500 ML IVC ONE (08:05)
--- NOTE | 2017-06-26 08:22 | Event Note ---
Date of Encounter: 06/26/17 Time of Encounter: 08:21 The patient is currently not in his room. Cardiology and rheumatology notes a been reviewed. Serum creatinine is improved a bit from 1.83 down to 1.67. Recommendations have been noted. We will continue to monitor the patient.
--- NOTE | 2017-06-26 08:42 | Event Note ---
<Nabil Francois Nupur - Last Filed: 06/26/17 15:34> Date of Encounter: 06/26/17 Time of Encounter: 08:42 - Cardiology Event Note Assessment and Plan Acute combined systolic and diastolic congestive heart failure BNP 340, Troponin 0.17, 0.04, and <0.03, Cr 1.39, 1.59, and 1.96 CXR: Pulmonary vascular congestion EKG: SR 81 bpm, normal axis, normal intervals, and LVH ECHO: 06/19/17: LVEF 50%, indeterminate diastolic function. Mod-Sev aortic regurgitation, mod mitral regurgitation, mild tricuspid, mild pulmonic and recommended PEBBLES Nephrology on board, recommend 20mg IV at this time. Patient states symptoms improving Atenolol decreased from 25 to 12.5 given JOSIE per nephrology Fluid restrictions Cumulative I&O's +440 Plan: - PEBBLES performed, results pending - Agree with nephrology's current recommendations (2) Acute respiratory failure with hypoxia Secondary to CHF exacerbation. See note above. (3) Acute kidney failure, unspecified Nephrology consulted by primary team See note above Discussion w patient/family: The assessment and plan as outlined above was discussed with the patient and/or family members who expressed understanding and agreement. All questions were answered. Thank you for involving us in the care of your patient. Please call with any questions. History of Present Illness Consult date: 06/26/17 Requesting physician: Vijaya Leavitt Consult reason: CHF Chief complaint: NICCI/LE Edema History of present illness: Mr. Woodruff is a 62 year old male hypertension, hyperlipidemia, and renal transplant initially admitted to the hospital with complaints of difficulty in breathing, nausea, vomiting, diarrhea, and lower extremity swelling. Patient states that the morning of 06/23/17 he woke up and notices lower extremities were swollen bilaterally. He states later that morning he began to experience N/V/D and subjective fevers which were treated at the SNF he currently resides and those resolved that day. There was a history of other residents with similar symptoms. Patient was admitted to the hospital with concerns for sepsis vs CHF exacerbation. Patient sees Dr. Lamar for nephrology, PEBBLES results pending for further evaluation of his heart valve disease. <Tristin Bailon - Last Filed: 06/26/17 23:02> Date of Encounter: 06/26/17 Time of Encounter: 17:00 Attestation Statement - Attestation Attestation: I examined this patient and my medical decision-making was reviewed with the Resident Physician. I agree with the documented findings, disposition and treatment plan as described except to the extent set forth below. CC: shortness of breath Pt reports is less short of breath today, tolerated PEBBLES well, denies fevers or chills, notes cough is slowly resolving. PE: as above, no change IMP: 1. Acute on chronic diastolic heart failure, better compensated, on low dose diuretics 2. Aortic regurg; awaiting results of PEBBLES. 3. Acute on chronic renal failure, unchanged further recs pending results of PEBBLES.
[2017-06-26] MEDS: *HR* Midazolam HCl 5 MG/5 ML VIAL IVP PRN ×3 (09:00→09:10)
[2017-06-26] MEDS: *HR* FentaNYL (PF) 100 MCG/2 ML VIAL IVP PRN ×2 (09:00→09:05)
[2017-06-26] MEDS: Loratadine 10 MG TABLET PO SCH (10:51)
[2017-06-26] MEDS: predniSONE 10 MG TABLET PO SCH (10:52)
[2017-06-26] MEDS: amLODIPine 5 MG TABLET PO SCH (10:52)
[2017-06-26] MEDS: CycloSPORINE (SandIMMUNE) 100 MG CAPSULE PO SCH ×2 (10:52→20:48)
[2017-06-26] MEDS: Famotidine 20 MG TABLET PO SCH (10:52)
[2017-06-26] MEDS: Furosemide 40 MG/4 ML VIAL IVP SCH (10:53)
[2017-06-26] MEDS: Sulfamethoxazole/Trimeth DS 1 EACH TABLET PO SCH (10:53)
[2017-06-26] MEDS: Cholecalciferol (D-3) 1,000 UNIT TABLET PO SCH (10:53)
--- NOTE | 2017-06-26 16:22 | Internal Med Progress Note ---
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 daily weights Fluid restriction 1500 mL's Low-sodium diet Cardiology has been consulted as well as nephrology PEBBLES completed awaiting results (2) Acute respiratory failure with hypoxia Current Visit: Yes Status: Acute Assessment and plan: Due to CHF exacerbation CXR showed mild to moderate pulm vascular congestion No infiltrates noticed cont IV Lasix Continue with oxygen titrated maintain SPO2 greater than 92% (3) SIRS (systemic inflammatory response syndrome) Current Visit: Yes Status: Acute Assessment and plan: Patient did present with tachycardia and temperature 100.2-he has been afebrile since admission he has not had any more stool since yesterday Respiratory panel was negative urinalysis ok, blood cultures are negative chest x-ray with pulmonary vascular congestion-suspect this may be viral- (4) CKD (chronic kidney disease), stage III Current Visit: Yes Status: Acute Assessment and plan: Creatinine is elevated 1.83 nephrology has been consulted and appreciate their recommendations Lasix has been decreased per nephrology's recommendations Monitor intake and output daily weights Avoid nephrotoxins (5) HTN (hypertension) Current Visit: Yes Status: Acute Assessment and plan: stable with home meds resumed home meds Qualifiers: Hypertension type: essential hypertension Qualified Code(s): I10 - Essential (primary) hypertension (6) Diarrhea Current Visit: Yes Status: Resolved Assessment and plan: This seems to have resolved-patient has not had any stool since admission cont close monitoring Qualifiers: Diarrhea type: unspecified type Qualified Code(s): R19.7 - Diarrhea, unspecified (7) Abdominal pain Current Visit: Yes Status: Resolved Assessment and plan: This has resolved -unclear etiology LFTs within normal limits no RUQ abd pain reviewed previous U/S abd and Ct of Abd dated 06/19 2015 showed sludge with small gallstone or polyp cont close monitoring Qualifiers: Abdominal location: generalized Qualified Code(s): R10.84 - Generalized abdominal pain (8) S/P kidney transplant Current Visit: Yes Status: Acute Assessment and plan: Creatinine trending down 1.67 today -appears his baseline from 1.2 We will consult nephrology appreciate their recommendations cont home dose of Cyclosporine and prednisone (9) Thrombocytopenia Current Visit: Yes Status: Acute Assessment and plan: Platelets improved 115 hold heparin (10) Bandemia without diagnosis of specific infection Current Visit: Yes Status: Resolved Assessment and plan: Suspect this may be viral infection-appears to be improving blood cultures are negative (11) DVT prophylaxis Current Visit: Yes Status: Acute Assessment and plan: 1 we will stop heparin due to thrombocytopenia and place SCDs /BRITTANY - Time Spent With Patient Total time spent is greater than 50% in coordination of care (as documented) at patient's floor/unit and/or counseling patient: - Subjective Interval history: I examined the patient at bedside patient did undergo PEBBLES this a.m. tolerated procedure well patient is sleepy denies any pain or discomfort continues to have lower extremity swelling - - Constitutional Vitals: Temp Pulse Resp BP Pulse Ox 97.8 F 89 14 130/76 91 06/26/17 15:47 06/26/17 15:47 06/26/17 15:47 06/26/17 15:47 06/26/17 15:47 General appearance: Present: A&O X 3, no acute distress, answers questions appropriately - Head Head exam: Present: atraumatic, normocephalic - Eye Eye exam: Present: PERRL, conjuntiva pink, sclera anicteric Pupils: Present: PERRL - Neck Neck exam general surgery: Present: supple, trachea midline. Absent: lymphadenopathy - Respiratory Respiratory exam: Present: CTAB. Absent: accessory muscle use, rales, rhonchi, wheezes - Cardiovascular Cardiovascular exam: Present: RRR, +S1, +S2. Absent: diastolic murmur, gallop, rubs, systolic murmur - GI/Abdominal GI/Abdominal exam: Present: normal bowel sounds, soft, no peritoneal signs. Absent: distended, tenderness - Extremities Exam Extremities exam: Present: pedal edema, warm, radial pulses palpable and symmetrical. Absent: calf tenderness, cyanotic - Neurological Exam Neurological exam: Present: CN II-XII intact, oriented X3, no focal deficits. Absent: pronater drift, facial droop, speech deficit - Skin Skin exam: Present: dry, intact Internal Medicine: Result - Labs CBC & Chem 7: 06/26/17 06:18 06/26/17 06:18 Labs: Short CBC 06/26/17 Range/Units 06:18 WBC 5.9 (4.3-11.1) K/mcL Hgb 12.2 L (12.9-16.9) g/dL Hct 36.8 L (37.5-50.1) % Plt Count 115 L (140-400) K/mcL Neutrophils # 4.2 (1.6-8.9) K/mcL BMP 06/26/17 06:18 Sodium 140 Potassium 4.9 Chloride 108 H Carbon Dioxide 29 BUN 34 H Creatinine 1.67 H Glucose 92 Calcium 9.2 - ABG Interpretation ABG results: PT/INR, D-dimer PT 10.8 Seconds (9.4-12.1) 06/26/17 06:18 Consult Discharge Plan - Plan Referrals: Domenic Moreno DO [Resident] - 07/04/17 3:15 pm NONE,PCP [Primary Care Provider] -
[2017-06-26 16:51] LABS: Total Volume 24 Hour,Urine 1.99 Liters (0.80-1.80)
--- NOTE | 2017-06-26 17:00 | Electrocardiograph Report ---
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
[2017-06-27 05:49] LABS: Basophils % 0.2 %; Eosinophils # 0.2 K/mcL (0.0-0.6); Hematocrit 35.1 % (37.5-50.1); Hemoglobin 11.6 g/dL (12.9-16.9); Immature Granulocytes % 0.2 % (0-4); Lymphocytes # 0.9 K/mcL (0.6-4.6); Lymphocytes % 16.7 %; Mean Corpuscular Hemoglobin 34.4 pg (28.0-33.3); Mean Corpuscular Volume 104.2 fL (83.0-100.0); Mean Platelet Volume 10.4 fL (9.4-12.4); Monocytes # 0.6 K/mcL (0.0-1.3); Monocytes % 10.2 %; Neutrophils # 3.8 K/mcL (1.6-8.9); Platelet Count 123 K/mcL (140-400); Red Blood Count 3.37 M/mcL (4.19-5.50); Red Cell Distribution Width 13.2 % (11.5-14.5); Segmented Neutrophils % 68.7 %
[2017-06-27 06:09] LABS: Albumin 3.1 g/dL (3.5-5.7); Albumin/Globulin Ratio 1.5 (1.1-2.2); Bilirubin,Total 0.3 mg/dL (0.3-1.0); Calcium 9.6 mg/dL (8.6-10.3); Globulin 2.1 g/dL (2.4-3.5); Potassium 4.5 mEq/L (3.5-5.1); Total Protein 5.2 g/dL (6.4-8.9)
--- NOTE | 2017-06-27 08:02 | Cardiology Progress Note ---
<Nabil Francois Nupur - Last Filed: 06/27/17 12:41> Date of Encounter: 06/27/17 Time of Encounter: 10:50 Assessment and Plan (1) Acute combined systolic and diastolic congestive heart failure Current Visit: Yes Status: Acute BNP 340, Troponin 0.17, 0.04, and <0.03, Cr 1.39, 1.59, and 1.96 CXR: Pulmonary vascular congestion EKG: SR 81 bpm, normal axis, normal intervals, and LVH ECHO: 06/19/17: LVEF 50%, indeterminate diastolic function. Mod-Sev aortic regurgitation, mod mitral regurgitation, mild tricuspid, mild pulmonic IV lasix 40BID stopped due to JOSIE. Nephrology on board, recommend 20mg IV at this time. Patient states symptoms improving Atenolol decreased from 25 to 12.5 given JOSIE per nephrology Fluid restrictions Cumulative I&O's -430 PEBBLES results: Tricuspid aortic valve with poor coaptation between the RCC/LCC associated with moderate aortic regurgitation by PHT 348 ms and VC 0.6cm. Abnormal A2/P2 mitral valave leaflet coaptation associated with moderate to severe eccentric posteriorly directed MR. Mild tricuspid regurgitation. Low normal LV systolic function. Normal RV function. Plan: Given normal ejection fraction and signs of initial enlargement of the right ventricle, we will recommend to continue medical management at this time Patient will need to follow up with cardiology in 2-3 weeks and then every 6 months for continous monitoring of patient's valvular disease Cardiology signing off at this time (2) Acute respiratory failure with hypoxia Current Visit: Yes Status: Acute Secondary to CHF exacerbation. See note above. (3) Acute kidney failure, unspecified Current Visit: Yes Status: Acute Nephrology consulted by primary team See note above Qualifiers: Acute renal failure type: unspecified Qualified Code(s): N17.9 - Acute kidney failure, unspecified Discussion w patient/family: The assessment and plan as outlined above was discussed with the patient and/or family members who expressed understanding and agreement. All questions were answered. Thank you for involving us in the care of your patient. Please call with any questions. Subjective Principal diagnosis: CHF Interval history: Mr. Woodruff is a 62 year old male hypertension, hyperlipidemia, and renal transplant initially admitted to the hospital with complaints of difficulty in breathing, nausea, vomiting, diarrhea, and lower extremity swelling. Patient states that the morning of 06/23/17 he woke up and notices lower extremities were swollen bilaterally. He states later that morning he began to experience N/V/D and subjective fevers which were treated at the SNF he currently resides and those resolved that day. There was a history of other residents with similar symptoms. Patient was admitted to the hospital with concerns for sepsis vs CHF exacerbation. Patient states he feels his symptoms are improving today, he is feeling better and LE edema is improving. Objective General: Conversant, No Apparent Distress HEENT: Atraumatic, Normocephaly, Mucus Membranes Moist Neck: No JVD, Normal carotid pulses Cardiac: Reg Rate and Rhythm, Normal S1 and S2, No Murmur Lungs: Normal Breath Sounds, No Wheeze, Rales, Rhonchi Neuro: Alert and responsive, No focal deficits noted Abdomen: Soft, Non-Tender Skin: No rashes noted on visualized skin Musculoskeletal: No Chest Wall Tenderness Extremities: No Clubbing, No Cyanosis, Normal Pulses, Other (mild edema bilaterally in LE) Results 06/27/17 04:19 06/27/17 04:19 Lab Results 06/27/17 06/27/17 04:19 04:19 WBC 5.5 Hgb 11.6 L Hct 35.1 L Plt Count 123 L Sodium 141 Potassium 4.5 Chloride 109 H Carbon Dioxide 29 BUN 27 H Creatinine 1.47 H Glucose 81 Calcium 9.6 Total Bilirubin 0.3 AST 19 ALT 15 Alkaline Phosphatase 59 - Imaging and Cardiology Echo: report reviewed Consult Discharge Plan - Plan Referrals: Domenic Moreno DO [Resident] - 07/04/17 3:15 pm Adebayo Riggins DO [Partnered Physician] - 07/22/17 3:30 pm <Tristin Bailon - Last Filed: 07/01/17 19:48> Date of Encounter: 06/27/17 Time of Encounter: 19:00 Assessment and Plan Discussion w patient/family: The assessment and plan as outlined above was discussed with the patient and/or family members who expressed understanding and agreement. All questions were answered. Thank you for involving us in the care of your patient. Please call with any questions. Objective Vital Signs, Last 4 Hours Temp Pulse Resp BP Pulse Ox 07/01/17 19:16 97.6 F 96 18 117/74 93 Results 06/30/17 08:07 06/30/17 08:07 Attestation Statement - Attestation Attestation: I examined this patient and my medical decision-making was reviewed with the Resident Physician. I agree with the documented findings, disposition and treatment plan as described except to the extent set forth below. PT reports shortness of breath has improved. PE: Agree with above IMP; 1. Acute on chronic combined systolic and diastolic heart failure, now compensated on current meds following successful diuresis 2. Aortic regurg, well compensated on current meds, will follow as outpatient.
[2017-06-27] MEDS: Furosemide 40 MG/4 ML VIAL IVP SCH (08:52)
[2017-06-27] MEDS: Sulfamethoxazole/Trimeth DS 1 EACH TABLET PO SCH (08:53)
[2017-06-27] MEDS: Cholecalciferol (D-3) 1,000 UNIT TABLET PO SCH (08:54)
[2017-06-27] MEDS: CycloSPORINE (SandIMMUNE) 100 MG CAPSULE PO SCH ×2 (08:54→22:13)
[2017-06-27] MEDS: Loratadine 10 MG TABLET PO SCH (08:54)
[2017-06-27] MEDS: Famotidine 20 MG TABLET PO SCH (08:55)
[2017-06-27] MEDS: predniSONE 10 MG TABLET PO SCH (08:55)
[2017-06-27] MEDS: amLODIPine 5 MG TABLET PO SCH (08:55)
--- NOTE | 2017-06-27 09:17 | Nephrology Progress Note ---
Date of Encounter: 06/27/17 Time of Encounter: 09:15 - Assessment and Plan (1) Acute kidney failure, unspecified Current Visit: Yes Status: Acute Patient's acute kidney injury in the setting of congestive heart failure related to valvular heart disease is improving. We will continue with the same diuretic regimen for now. He has moderate proteinuria but not nephrotic range proteinuria. A transplant renal ultrasound has been ordered but that is still pending. Qualifiers: Acute renal failure type: unspecified Qualified Code(s): N17.9 - Acute kidney failure, unspecified (2) Aortic regurgitation Current Visit: Yes Status: Acute Qualifiers: Cardiac valve disease etiology: nonrheumatic Qualified Code(s): I35.1 - Nonrheumatic aortic (valve) insufficiency (3) Mitral regurgitation Current Visit: Yes Status: Acute Qualifiers: Cardiac valve disease etiology: nonrheumatic Qualified Code(s): I34.0 - Nonrheumatic mitral (valve) insufficiency (4) Pulmonary hypertension Current Visit: Yes Status: Acute (5) S/P kidney transplant Current Visit: Yes Status: Acute (6) Rheumatoid arteritis Current Visit: Yes Status: Acute Subjective Principal diagnosis: CHF Interval history: Patient reports she is feeling better. He is experiencing less exertional dyspnea. Renal function remained stable. Lower extremity swelling is somewhat improved. Transesophageal echo shows moderate aortic regurgitation and moderate to severe mitral regurgitation. Objective - Vital Signs Vital signs: Vital Signs Temp Pulse Resp BP Pulse Ox 06/27/17 08:10 97.6 F 82 16 135/82 97 06/27/17 03:18 83 19 136/78 91 06/26/17 22:54 98.6 F 88 20 167/77 90 06/26/17 19:48 98.1 F 85 19 155/89 93 06/26/17 15:47 97.8 F 89 14 130/76 91 06/26/17 11:15 97.9 F 85 14 145/75 96 Intake and Output 06/26/17 06/27/17 06/27/17 23:59 07:59 15:59 Intake Total 980 / 980 0 / 0 Output Total 650 / 650 450 / 450 Balance 330 / 330 -450 / -450 Intake: Oral 980 / 980 0 / 0 Output: Urine 650 / 650 450 / 450 Other: Meal Dinner Percent of Meal Consumed 50% Weight 113.593 kg Patient Weight 06/27/17 23:59 Weight 113.593 kg - General Appearance Exam: Patient is alert and oriented. He is in no acute distress. Lungs essentially clear to auscultation. Heart regular rate and rhythm with a systolic murmur. Abdomen is benign. There is 1+ lower extremity swelling. Patient has changes in his hands and fingers of rheumatoid arthritis. - Lab 06/27/17 04:19 06/27/17 04:19 Most recent lab results Calcium 9.6 mg/dL (8.6-10.3) 06/27/17 04:19 Magnesium 1.6 mg/dL (1.6-2.6) 06/24/17 05:57 Urine Creatinine 90 mg/dL 06/26/17 10:51 Ur Total Protein 24 Hr 1095 mg/day (50-80) H 06/26/17 10:51 Urine Total Protein 55 mg/dL (1-14) H 06/26/17 10:51 Consult Discharge Plan - Plan Referrals: Domenic Moreno DO [Resident] - 07/04/17 3:15 pm NONE,PCP [Primary Care Provider] -
--- NOTE | 2017-06-27 11:05 | Internal Med Progress Note ---
Date of Encounter: 06/27/17 Time of Encounter: 11:03 - Assessment and plan (1) Acute kidney injury superimposed on chronic kidney disease Current Visit: Yes Status: Acute Assessment and plan: Acute kidney injury in the setting of congestive heart failure related to valvular heart disease.history of renal transplant Creatinine is improving nephrology has been consulted -we will continue with the same diuretic regime for now-awaiting renal ultrasound Monitor intake and output daily weights Avoid nephrotoxins (2) Acute combined systolic and diastolic congestive heart failure Current Visit: Yes Status: Acute Assessment and plan: Reviewed his echocardiogram from 06/19/2017 showed LVEF 50%, Mild diastolic dysfunction Nephrology has been consulted -recommending Lasix 20 IV daily Troponin- .03, .17 .04 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 Fluid restriction 1500 mL's Low-sodium diet Cardiology has been consulted as well as nephrology PEBBLES completed awaiting results (3) Acute respiratory failure with hypoxia Current Visit: Yes Status: Acute Assessment and plan: Due to CHF exacerbation-seems to be improving-continue with oxygen titrated maintain SPO2 greater than 92% (4) SIRS (systemic inflammatory response syndrome) Current Visit: Yes Status: Acute Assessment and plan: Patient did present with tachycardia and temperature 100.2-he has been afebrile since admission -no elevation in white count he is not experiencing any stools Respiratory panel was negative urinalysis ok, blood cultures are negative chest x-ray with pulmonary vascular congestion-suspect this may be viral- (5) HTN (hypertension) Current Visit: Yes Status: Acute Assessment and plan: stable with home meds resumed home meds Qualifiers: Hypertension type: essential hypertension Qualified Code(s): I10 - Essential (primary) hypertension (6) Diarrhea Current Visit: Yes Status: Resolved Assessment and plan: This seems to have resolved-patient has not had any stool since admission cont close monitoring Qualifiers: Diarrhea type: unspecified type Qualified Code(s): R19.7 - Diarrhea, unspecified (7) Abdominal pain Current Visit: Yes Status: Resolved Assessment and plan: This has resolved -unclear etiology LFTs within normal limits no RUQ abd pain reviewed previous U/S abd and Ct of Abd dated 06/19 2015 showed sludge with small gallstone or polyp cont close monitoring Qualifiers: Abdominal location: generalized Qualified Code(s): R10.84 - Generalized abdominal pain (8) S/P kidney transplant Current Visit: Yes Status: Acute Assessment and plan: Creatinine improving -appears his baseline from 1.2 We will consult nephrology appreciate their recommendations cont home dose of Cyclosporine and prednisone Renal ultrasound has been ordered-awaiting results (9) Thrombocytopenia Current Visit: Yes Status: Acute Assessment and plan: Platelets improved since discontinuing heparin (10) Bandemia without diagnosis of specific infection Current Visit: Yes Status: Resolved Assessment and plan: Suspect this may be viral infection-appears to be improving blood cultures are negative-appears to be resolved (11) DVT prophylaxis Current Visit: Yes Status: Acute Assessment and plan: 1 we will stop heparin due to thrombocytopenia and place SCDs /BRITTANY - Time Spent With Patient Total time spent is greater than 50% in coordination of care (as documented) at patient's floor/unit and/or counseling patient: - Subjective Interval history: I examined the patient at bedside steta that he feels better, swelling improved to lower extremities. - - Constitutional Vitals: Temp Pulse Resp BP Pulse Ox 97.6 F 82 16 135/82 97 06/27/17 08:10 06/27/17 08:10 06/27/17 08:10 06/27/17 08:10 06/27/17 08:10 General appearance: Present: A&O X 3, no acute distress, answers questions appropriately - Head Head exam: Present: atraumatic, normocephalic - Eye Eye exam: Present: PERRL, conjuntiva pink, sclera anicteric Pupils: Present: PERRL - Neck Neck exam general surgery: Present: supple, trachea midline. Absent: lymphadenopathy - Respiratory Respiratory exam: Present: rales. Absent: accessory muscle use, rhonchi, wheezes - Cardiovascular Cardiovascular exam: Present: RRR, +S1, +S2. Absent: diastolic murmur, gallop, rubs, systolic murmur - GI/Abdominal GI/Abdominal exam: Present: normal bowel sounds, soft, no peritoneal signs. Absent: distended, tenderness - Extremities Exam Extremities exam: Present: warm, radial pulses palpable and symmetrical. Absent : calf tenderness, cyanotic, pedal edema - Neurological Exam Neurological exam: Present: CN II-XII intact, oriented X3, no focal deficits. Absent: pronater drift, facial droop, speech deficit - Skin Skin exam: Present: dry, intact Internal Medicine: Result - Labs CBC & Chem 7: 06/27/17 04:19 06/27/17 04:19 Labs: Short CBC 06/27/17 Range/Units 04:19 WBC 5.5 (4.3-11.1) K/mcL Hgb 11.6 L (12.9-16.9) g/dL Hct 35.1 L (37.5-50.1) % Plt Count 123 L (140-400) K/mcL Neutrophils # 3.8 (1.6-8.9) K/mcL BMP 06/27/17 04:19 Sodium 141 Potassium 4.5 Chloride 109 H Carbon Dioxide 29 BUN 27 H Creatinine 1.47 H Glucose 81 Calcium 9.6 Liver Function 06/27/17 Range/Units 04:19 Total Bilirubin 0.3 (0.3-1.0) mg/dL AST 19 (13-39) Units/L ALT 15 (7-52) Units/L Alkaline Phosphatase 59 (34-104) Units/L Albumin 3.1 L (3.5-5.7) g/dL - ABG Interpretation ABG results: PT/INR, D-dimer PT 10.8 Seconds (9.4-12.1) 06/26/17 06:18 Consult Discharge Plan - Plan Referrals: Domenic Moreno DO [Resident] - 07/04/17 3:15 pm Adebayo Riggins DO [Partnered Physician] - 07/22/17 3:30 pm
--- NOTE | 2017-06-28 08:21 | Nephrology Progress Note ---
Date of Encounter: 06/28/17 Time of Encounter: 08:19 - Assessment and Plan (1) Acute kidney failure, unspecified Current Visit: Yes Status: Acute Patient's acute kidney injury in the setting of congestive heart failure related to valvular heart disease is improving. We will continue with the same diuretic regimen for now. Today's lab is pending. For that reason we will make any changes to his diuretic regimen. Patient's blood pressure seems to be creeping up some going to increase his amlodipine. Qualifiers: Acute renal failure type: unspecified Qualified Code(s): N17.9 - Acute kidney failure, unspecified (2) Aortic regurgitation Current Visit: Yes Status: Acute Qualifiers: Cardiac valve disease etiology: nonrheumatic Qualified Code(s): I35.1 - Nonrheumatic aortic (valve) insufficiency (3) Mitral regurgitation Current Visit: Yes Status: Acute Qualifiers: Cardiac valve disease etiology: nonrheumatic Qualified Code(s): I34.0 - Nonrheumatic mitral (valve) insufficiency (4) Pulmonary hypertension Current Visit: Yes Status: Acute (5) S/P kidney transplant Current Visit: Yes Status: Acute (6) Rheumatoid arteritis Current Visit: Yes Status: Acute Subjective Principal diagnosis: CHF Interval history: The patient reports no new complaints. He continues to have some large 70 swelling. Urine output yesterday was recorded as 2.2 L. Today's lab is pending. Patient reports some exertional dyspnea associated with walking yesterday. Objective - Vital Signs Vital signs: Vital Signs Temp Pulse Resp BP Pulse Ox 06/28/17 07:05 98.4 F 83 18 163/92 95 06/28/17 03:50 98.3 F 87 19 149/88 91 06/27/17 23:39 98.3 F 83 18 163/83 93 06/27/17 18:43 97.8 F 83 18 156/84 95 06/27/17 16:23 98 06/27/17 15:17 97.9 F 85 17 132/76 93 06/27/17 11:24 97.4 F L 78 16 133/76 92 Intake and Output 06/27/17 06/28/17 06/28/17 23:59 07:59 15:59 Intake Total 240 / 240 465 / 465 Output Total 600 / 600 850 / 850 Balance -360 / -360 -385 / -385 Intake: Oral 240 / 240 465 / 465 Output: Urine 600 / 600 850 / 850 Other: Weight 114.351 kg Patient Weight 06/28/17 23:59 Weight 114.351 kg - General Appearance Exam: Patient is alert and oriented. He is in no acute distress. Lungs symmetric breath sounds otherwise clear. Heart regular rate and rhythm with a 2/6 systolic ejection murmur. Abdomen is distended but soft. There is no guarding or rigidity. Lower extremity edema remains about the same as yesterday. - Lab 06/27/17 04:19 06/27/17 04:19 Most recent lab results Calcium 9.6 mg/dL (8.6-10.3) 06/27/17 04:19 Magnesium 1.6 mg/dL (1.6-2.6) 06/24/17 05:57 Urine Creatinine 90 mg/dL 06/26/17 10:51 Ur Total Protein 24 Hr 1095 mg/day (50-80) H 06/26/17 10:51 Urine Total Protein 55 mg/dL (1-14) H 06/26/17 10:51 Consult Discharge Plan - Plan Referrals: Domenic Moreno DO [Resident] - 07/04/17 3:15 pm Adebayo Riggins DO [Partnered Physician] - 07/22/17 3:30 pm
[2017-06-28] MEDS: amLODIPine 5 MG TABLET PO SCH ×2 (09:06→20:42)
[2017-06-28] MEDS: Loratadine 10 MG TABLET PO SCH (09:06)
[2017-06-28] MEDS: Sulfamethoxazole/Trimeth DS 1 EACH TABLET PO SCH (09:06)
[2017-06-28] MEDS: Famotidine 20 MG TABLET PO SCH (09:07)
[2017-06-28] MEDS: CycloSPORINE (SandIMMUNE) 100 MG CAPSULE PO SCH ×2 (09:07→20:42)
[2017-06-28] MEDS: Cholecalciferol (D-3) 1,000 UNIT TABLET PO SCH (09:07)
[2017-06-28] MEDS: predniSONE 10 MG TABLET PO SCH (09:07)
[2017-06-28] MEDS: Furosemide 40 MG/4 ML VIAL IVP SCH (09:10)
[2017-06-28 09:38] LABS: Basophils % 0.3 %; Eosinophils # 0.5 K/mcL (0.0-0.6); Eosinophils % 6.3 %; Hematocrit 35.5 % (37.5-50.1); Hemoglobin 11.9 g/dL (12.9-16.9); Immature Granulocytes % 0.3 % (0-4); Lymphocytes % 13.2 %; Mean Corpuscular HGB Conc 33.5 g/dL (31.6-35.5); Mean Corpuscular Hemoglobin 34.5 pg (28.0-33.3); Mean Corpuscular Volume 102.9 fL (83.0-100.0); Mean Platelet Volume 10.3 fL (9.4-12.4); Monocytes % 13.5 %; Neutrophils # 4.9 K/mcL (1.6-8.9); Platelet Count 116 K/mcL (140-400); Red Blood Count 3.45 M/mcL (4.19-5.50); Red Cell Distribution Width 13.2 % (11.5-14.5); Segmented Neutrophils % 66.4 %
[2017-06-28 09:42] LABS: BUN/Creatinine Ratio 18 (6-26); Blood Urea Nitrogen 23 mg/dL (8-23); Calcium 9.8 mg/dL (8.6-10.3); Carbon Dioxide 32 mEq/L (23-29); Chloride 104 mEq/L (98-107); Glucose 81 mg/dL (70-105); Osmolality,Calculated 291 (280-300); Potassium 4.3 mEq/L (3.5-5.1); Sodium 139 mEq/L (136-145); eGFR For African Americans > 60 (> 60); eGFR For Non-African Americans 57 (> 60)
--- NOTE | 2017-06-28 19:55 | Internal Med Progress Note ---
Date of Encounter: 06/28/17 Time of Encounter: 10:00 - Assessment and plan (1) Acute kidney injury superimposed on chronic kidney disease Current Visit: Yes Status: Acute Assessment and plan: Acute kidney injury in the setting of congestive heart failure related to valvular heart disease.history of renal transplant Creatinine is improving nephrology has been consulted -we will continue with the same diuretic regime for now- still awaiting renal ultrasound Monitor intake and output daily weights Avoid nephrotoxins (2) Acute combined systolic and diastolic congestive heart failure Current Visit: Yes Status: Acute Assessment and plan: Reviewed his echocardiogram from 06/19/2017 showed LVEF 50%, Mild diastolic dysfunction Nephrology has been consulted -recommending Lasix 20 IV daily Troponin- .03, .17 .04 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 Fluid restriction 1500 mL's Low-sodium diet Cardiology review PEBBLES recommending medical management (3) Acute respiratory failure with hypoxia Current Visit: Yes Status: Acute Assessment and plan: Due to CHF exacerbation-seems to be improving-continue with oxygen titrated maintain SPO2 greater than 92% we will complete a 6 minute walk test to see patient qualifies for home O2 (4) SIRS (systemic inflammatory response syndrome) Current Visit: Yes Status: Resolved Assessment and plan: Patient did present with tachycardia and temperature 100.2-he has been afebrile since admission -no elevation in white count he is not experiencing any stools Respiratory panel was negative urinalysis ok, blood cultures are negative chest x-ray with pulmonary vascular congestion-suspect this may be viral-resolved (5) HTN (hypertension) Current Visit: Yes Status: Acute Assessment and plan: stable with home meds Continue home meds Qualifiers: Hypertension type: essential hypertension Qualified Code(s): I10 - Essential (primary) hypertension (6) Diarrhea Current Visit: Yes Status: Resolved Assessment and plan: This seems to have resolved-patient has not had any stool since admission cont close monitoring Qualifiers: Diarrhea type: unspecified type Qualified Code(s): R19.7 - Diarrhea, unspecified (7) Abdominal pain Current Visit: Yes Status: Resolved Assessment and plan: This has resolved -unclear etiology LFTs within normal limits no RUQ abd pain reviewed previous U/S abd and Ct of Abd dated 06/19 2015 showed sludge with small gallstone or polyp cont close monitoring Qualifiers: Abdominal location: generalized Qualified Code(s): R10.84 - Generalized abdominal pain (8) S/P kidney transplant Current Visit: Yes Status: Acute Assessment and plan: Creatinine improving -appears his baseline from 1.2 We will consult nephrology appreciate their recommendations cont home dose of Cyclosporine and prednisone Renal ultrasound has been ordered-still awaiting results (9) Thrombocytopenia Current Visit: Yes Status: Acute Assessment and plan: Platelets are improving (10) Bandemia without diagnosis of specific infection Current Visit: Yes Status: Resolved Assessment and plan: Suspect this may be viral infection-appears to be improving blood cultures are negative-appears to be resolved (11) DVT prophylaxis Current Visit: Yes Status: Acute Assessment and plan: 1 we will stop heparin due to thrombocytopenia and place SCDs /BRITTANY - Time Spent With Patient Total time spent is greater than 50% in coordination of care (as documented) at patient's floor/unit and/or counseling patient: - Subjective Interval history: I examined the patient at bedside steta that he feels better, denies any pain or discomfort swelling to lower extremity is much improved. - - Constitutional Vitals: Temp Pulse Resp BP Pulse Ox 98.3 F 83 16 156/87 95 06/28/17 19:00 06/28/17 19:00 06/28/17 19:00 06/28/17 19:00 06/28/17 19:00 General appearance: Present: A&O X 3, no acute distress, answers questions appropriately - Head Head exam: Present: atraumatic, normocephalic - Eye Eye exam: Present: PERRL, conjuntiva pink, sclera anicteric Pupils: Present: PERRL - Neck Neck exam general surgery: Present: supple, trachea midline. Absent: lymphadenopathy - Respiratory Respiratory exam: Present: CTAB. Absent: accessory muscle use, rales, rhonchi, wheezes - Cardiovascular Cardiovascular exam: Present: RRR, +S1, +S2. Absent: diastolic murmur, gallop, rubs, systolic murmur - GI/Abdominal GI/Abdominal exam: Present: normal bowel sounds, soft, no peritoneal signs. Absent: distended, tenderness - Extremities Exam Extremities exam: Present: warm, radial pulses palpable and symmetrical. Absent : calf tenderness, cyanotic, pedal edema - Neurological Exam Neurological exam: Present: CN II-XII intact, oriented X3, no focal deficits. Absent: pronater drift, facial droop, speech deficit - Skin Skin exam: Present: dry, intact Internal Medicine: Result - Labs CBC & Chem 7: 06/28/17 08:39 06/28/17 08:39 Labs: Short CBC 06/28/17 Range/Units 08:39 WBC 7.4 (4.3-11.1) K/mcL Hgb 11.9 L (12.9-16.9) g/dL Hct 35.5 L (37.5-50.1) % Plt Count 116 L (140-400) K/mcL Neutrophils # 4.9 (1.6-8.9) K/mcL BMP 06/28/17 08:39 Sodium 139 Potassium 4.3 Chloride 104 Carbon Dioxide 32 H BUN 23 Creatinine 1.27 Glucose 81 Calcium 9.8 - ABG Interpretation ABG results: PT/INR, D-dimer PT 10.8 Seconds (9.4-12.1) 06/26/17 06:18 Consult Discharge Plan - Plan Referrals: Domenic Moreno DO [Resident] - 07/04/17 3:15 pm Adebayo Riggins DO [Partnered Physician] - 07/22/17 3:30 pm
[2017-06-29] MEDS: Acetaminophen 325 MG TABLET PO PRN (05:17)
[2017-06-29 06:14] LABS: Basophils % 0.2 %; Eosinophils # 0.6 K/mcL (0.0-0.6); Eosinophils % 7.2 %; Hematocrit 38.3 % (37.5-50.1); Hemoglobin 12.9 g/dL (12.9-16.9); Immature Granulocytes % 0.4 % (0-4); Lymphocytes # 0.7 K/mcL (0.6-4.6); Lymphocytes % 8.3 %; Mean Corpuscular HGB Conc 33.7 g/dL (31.6-35.5); Mean Corpuscular Hemoglobin 34.2 pg (28.0-33.3); Mean Corpuscular Volume 101.6 fL (83.0-100.0); Mean Platelet Volume 10.1 fL (9.4-12.4); Monocytes # 0.9 K/mcL (0.0-1.3); Monocytes % 11.6 %; Neutrophils # 5.8 K/mcL (1.6-8.9); Platelet Count 118 K/mcL (140-400); Red Blood Count 3.77 M/mcL (4.19-5.50); Red Cell Distribution Width 13.2 % (11.5-14.5); Segmented Neutrophils % 72.3 %
[2017-06-29 06:34] LABS: BUN/Creatinine Ratio 20 (6-26); Blood Urea Nitrogen 25 mg/dL (8-23); Calcium 10.1 mg/dL (8.6-10.3); Carbon Dioxide 32 mEq/L (23-29); Chloride 102 mEq/L (98-107); Glucose 91 mg/dL (70-105); Osmolality,Calculated 294 (280-300); Potassium 4.2 mEq/L (3.5-5.1); Sodium 140 mEq/L (136-145); eGFR For African Americans > 60 (> 60); eGFR For Non-African Americans 57 (> 60)
[2017-06-29] MEDS: Furosemide 40 MG/4 ML VIAL IVP SCH (09:07)
[2017-06-29] MEDS: Sulfamethoxazole/Trimeth DS 1 EACH TABLET PO SCH (09:09)
[2017-06-29] MEDS: Loratadine 10 MG TABLET PO SCH (09:09)
[2017-06-29] MEDS: Famotidine 20 MG TABLET PO SCH (09:10)
[2017-06-29] MEDS: Cholecalciferol (D-3) 1,000 UNIT TABLET PO SCH (09:10)
[2017-06-29] MEDS: CycloSPORINE (SandIMMUNE) 100 MG CAPSULE PO SCH ×2 (09:10→20:01)
[2017-06-29] MEDS: amLODIPine 5 MG TABLET PO SCH ×2 (09:10→20:01)
[2017-06-29] MEDS: predniSONE 10 MG TABLET PO SCH (09:10)
[2017-06-29] MEDS: *HR* HYDROcodone/Acet 5/325 mg TABLET PO PRN (09:17)
--- NOTE | 2017-06-29 17:51 | Internal Med Progress Note ---
Date of Encounter: 06/29/17 Time of Encounter: 09:00 - Assessment and plan (1) Acute kidney injury superimposed on chronic kidney disease Current Visit: Yes Status: Acute Assessment and plan: Acute kidney injury in the setting of congestive heart failure related to valvular heart disease.history of renal transplant Creatinine appears to be back at baselin3 nephrology has been consulted -cont with same diuretic still awaiting renal ultrasound Monitor intake and output daily weights Avoid nephrotoxins (2) Acute combined systolic and diastolic congestive heart failure Current Visit: Yes Status: Acute Assessment and plan: Reviewed his echocardiogram from 06/19/2017 showed LVEF 50%, Mild diastolic dysfunction Nephrology has been consulted -recommending Lasix 20 IV daily Troponin- .03, .17 .04 cont on tele-we will obtain pin or clip fastener intake output daily weights Fluid restriction 1500 mL's Low-sodium diet Cardiology review PEBBLES recommending medical management (3) Acute respiratory failure with hypoxia Current Visit: Yes Status: Acute Assessment and plan: Due to CHF exacerbation-seems to be improving-continue with oxygen titrated maintain SPO2 greater than 92%-patient does qualify for oxygen [facility] setting up oxygen for discharge (4) SIRS (systemic inflammatory response syndrome) Current Visit: Yes Status: Resolved Assessment and plan: Patient did present with tachycardia and temperature 100.2-he has been afebrile since admission -no elevation in white count he is not experiencing any stools Respiratory panel was negative urinalysis ok, blood cultures are negative chest x-ray with pulmonary vascular congestion-suspect this may be viral-resolved (5) HTN (hypertension) Current Visit: Yes Status: Acute Assessment and plan: stable with home meds Continue home meds Qualifiers: Hypertension type: essential hypertension Qualified Code(s): I10 - Essential (primary) hypertension (6) Diarrhea Current Visit: Yes Status: Resolved Assessment and plan: This seems to have resolved-patient has not had any stool since admission cont close monitoring Qualifiers: Diarrhea type: unspecified type Qualified Code(s): R19.7 - Diarrhea, unspecified (7) Abdominal pain Current Visit: Yes Status: Resolved Assessment and plan: This has resolved -unclear etiology LFTs within normal limits no RUQ abd pain reviewed previous U/S abd and Ct of Abd dated 06/19 2015 showed sludge with small gallstone or polyp cont close monitoring Qualifiers: Abdominal location: generalized Qualified Code(s): R10.84 - Generalized abdominal pain (8) S/P kidney transplant Current Visit: Yes Status: Acute Assessment and plan: Creatinine improving -appears his baseline from 1.2 We will consult nephrology appreciate their recommendations cont home dose of Cyclosporine and prednisone Renal ultrasound has been ordered-still awaiting results (9) Thrombocytopenia Current Visit: Yes Status: Acute Assessment and plan: Platelets are improving (10) Bandemia without diagnosis of specific infection Current Visit: Yes Status: Resolved Assessment and plan: Suspect this may be viral infection-appears to be improving blood cultures are negative-appears to be resolved (11) DVT prophylaxis Current Visit: Yes Status: Acute Assessment and plan: 1 we will stop heparin due to thrombocytopenia and place SCDs /BRITTANY - Time Spent With Patient Total time spent is greater than 50% in coordination of care (as documented) at patient's floor/unit and/or counseling patient: - Subjective Interval history: I examined the patient at bedside steta that he feels better, denies any pain or discomfort swelling to lower extremity is much improved. I expect possible disccharged tomorrow if okay with nephrology - - Constitutional Vitals: Temp Pulse Resp BP Pulse Ox 97.8 F 78 15 114/74 94 06/29/17 15:12 06/29/17 15:12 06/29/17 15:12 06/29/17 15:12 06/29/17 15:12 General appearance: Present: A&O X 3, no acute distress, answers questions appropriately - Head Head exam: Present: atraumatic, normocephalic - Eye Eye exam: Present: PERRL, conjuntiva pink, sclera anicteric Pupils: Present: PERRL - Neck Neck exam general surgery: Present: supple, trachea midline. Absent: lymphadenopathy - Respiratory Respiratory exam: Present: CTAB. Absent: accessory muscle use, rales, rhonchi, wheezes - Cardiovascular Cardiovascular exam: Present: RRR, +S1, +S2. Absent: diastolic murmur, gallop, rubs, systolic murmur - GI/Abdominal GI/Abdominal exam: Present: normal bowel sounds, soft, no peritoneal signs. Absent: distended, tenderness - Extremities Exam Extremities exam: Present: warm, radial pulses palpable and symmetrical. Absent : calf tenderness, cyanotic, pedal edema - Neurological Exam Neurological exam: Present: CN II-XII intact, oriented X3, no focal deficits. Absent: pronater drift, facial droop, speech deficit - Skin Skin exam: Present: dry, intact Internal Medicine: Result - Labs CBC & Chem 7: 06/29/17 05:35 06/29/17 05:35 Labs: Short CBC 06/29/17 Range/Units 05:35 WBC 8.1 (4.3-11.1) K/mcL Hgb 12.9 (12.9-16.9) g/dL Hct 38.3 (37.5-50.1) % Plt Count 118 L (140-400) K/mcL Neutrophils # 5.8 (1.6-8.9) K/mcL BMP 06/29/17 05:35 Sodium 140 Potassium 4.2 Chloride 102 Carbon Dioxide 32 H BUN 25 H Creatinine 1.28 Glucose 91 Calcium 10.1 - ABG Interpretation ABG results: PT/INR, D-dimer PT 10.8 Seconds (9.4-12.1) 06/26/17 06:18 Consult Discharge Plan - Plan Referrals: Domenic Moreno DO [Resident] - 07/04/17 3:15 pm Adebayo Riggins DO [Partnered Physician] - 07/22/17 3:30 pm
[2017-06-29] MEDS: Furosemide 20 MG/2 ML VIAL IVP SCH (22:42)
[2017-06-29] MEDS: Ipratropium/Albuterol Neb 3 ML IH SCH (22:47)
--- NOTE | 2017-06-29 22:57 | Event Note ---
Date of Encounter: 06/29/17 Time of Encounter: 21:32 Alerted by patient's nurse of increased wheezing on auscultation bilaterally patient's lungs. Patient admitted for CHF exacerbation. Went to examine patient who has 1+ pitting edema bilaterally in LEs and increased wheezing bilaterally in all lobes on auscultation. 20 mg IV push Lasix daily stopped and increased to 20 mg IV push Lasix twice a day with dose to be given now. Mucinex ordered to replace current Robitussin order and DuoNeb's ordered to begin now with addition of flutter valve with respiratory therapies. 1.5L daily fluid restriction added. Continue strict monitoring of I&O and daily weight.
[2017-06-30] MEDS: Ipratropium/Albuterol Neb 3 ML IH SCH ×4 (04:15→21:51)
[2017-06-30 08:26] LABS: Basophils % 0.2 %; Eosinophils # 0.6 K/mcL (0.0-0.6); Hematocrit 38.3 % (37.5-50.1); Hemoglobin 13.3 g/dL (12.9-16.9); Immature Granulocytes % 0.3 % (0-4); Lymphocytes % 8.1 %; Mean Corpuscular HGB Conc 34.7 g/dL (31.6-35.5); Mean Corpuscular Hemoglobin 35.4 pg (28.0-33.3); Mean Corpuscular Volume 101.9 fL (83.0-100.0); Mean Platelet Volume 10.4 fL (9.4-12.4); Monocytes # 1.1 K/mcL (0.0-1.3); Monocytes % 9.2 %; Neutrophils # 9.5 K/mcL (1.6-8.9); Platelet Count 134 K/mcL (140-400); Red Blood Count 3.76 M/mcL (4.19-5.50); Red Cell Distribution Width 13.1 % (11.5-14.5); Segmented Neutrophils % 77.2 %
[2017-06-30] MEDS ORDERED: Albuterol 2.5 MG/3 ML NEBULIZER IH PRN (08:26)
[2017-06-30 08:37] LABS: BUN/Creatinine Ratio 19 (6-26); Blood Urea Nitrogen 27 mg/dL (8-23); Calcium 9.7 mg/dL (8.6-10.3); Carbon Dioxide 32 mEq/L (23-29); Chloride 99 mEq/L (98-107); Glucose 85 mg/dL (70-105); Osmolality,Calculated 290 (280-300); Potassium 4.5 mEq/L (3.5-5.1); Sodium 138 mEq/L (136-145); eGFR For African Americans > 60 (> 60); eGFR For Non-African Americans 50 (> 60)
--- NOTE | 2017-06-30 08:45 | Nephrology Progress Note ---
Date of Encounter: 06/30/17 Time of Encounter: 08:43 - Assessment and Plan (1) Acute kidney failure, unspecified Current Visit: Yes Status: Acute Patient's acute kidney injury in the setting of congestive heart failure related to valvular heart disease is improving. Patient's renal function has returned back to his previous baseline. He now has a clinical picture of acute asthmatic bronchitis. Pneumonia should be ruled out. The hospitalist team has ordered a chest x-ray, breathing treatments, cultures, and patient will be placed on antibiotics. Qualifiers: Acute renal failure type: unspecified Qualified Code(s): N17.9 - Acute kidney failure, unspecified (2) Aortic regurgitation Current Visit: Yes Status: Acute Qualifiers: Cardiac valve disease etiology: nonrheumatic Qualified Code(s): I35.1 - Nonrheumatic aortic (valve) insufficiency (3) Mitral regurgitation Current Visit: Yes Status: Acute Qualifiers: Cardiac valve disease etiology: nonrheumatic Qualified Code(s): I34.0 - Nonrheumatic mitral (valve) insufficiency (4) Pulmonary hypertension Current Visit: Yes Status: Acute (5) S/P kidney transplant Current Visit: Yes Status: Acute (6) Rheumatoid arteritis Current Visit: Yes Status: Acute Subjective Principal diagnosis: CHF Interval history: The patient is complaining of new onset shortness of breath and coughing. Cough is nonproductive. On physical exam has evidence of wheezing and rhonchi. Renal function is stable and is close to his baseline. Peripheral edema continues to improve. Objective - Vital Signs Vital signs: Vital Signs Temp Pulse Resp BP Pulse Ox 06/30/17 08:29 97.7 F 110 18 149/82 88 06/30/17 07:41 98.0 F 93 16 121/79 91 06/30/17 04:17 20 90 06/30/17 03:00 98.2 F 97 18 136/62 93 06/29/17 22:50 20 94 06/29/17 22:39 97.6 F 86 18 160/88 93 06/29/17 19:59 93 06/29/17 18:53 97.9 F 91 18 124/77 92 06/29/17 15:12 97.8 F 78 15 114/74 94 06/29/17 11:48 97.5 F L 75 16 130/73 92 06/29/17 08:52 93 Intake and Output 06/29/17 06/30/17 06/30/17 23:59 07:59 15:59 Intake Total 200 / 200 300 / 300 Output Total 700 / 700 120 / 120 Balance 200 / 200 -400 / -400 -120 / -120 Intake: Oral 200 / 200 300 / 300 Output: Urine 700 / 700 120 / 120 Other: Weight 112.5 kg Blood Glucose* 124 Patient Weight 06/30/17 23:59 Weight 112.5 kg - General Appearance Exam: Patient is alert and oriented. He appears acutely ill. Lungs exhibit bilateral wheezing and rhonchi. Heart regular rate and rhythm. Abdomen is benign. Lower extremities show mild swelling. - Lab 06/30/17 08:07 06/30/17 08:07 Most recent lab results Calcium 9.7 mg/dL (8.6-10.3) 06/30/17 08:07 Magnesium 1.6 mg/dL (1.6-2.6) 06/24/17 05:57 Urine Creatinine 90 mg/dL 06/26/17 10:51 Ur Total Protein 24 Hr 1095 mg/day (50-80) H 06/26/17 10:51 Urine Total Protein 55 mg/dL (1-14) H 06/26/17 10:51 Consult Discharge Plan - Plan Referrals: Domenic Moreno DO [Resident] - 07/04/17 3:15 pm Adebayo Riggins DO [Partnered Physician] - 07/22/17 3:30 pm
[2017-06-30] MEDS: Benzonatate 100 MG CAPSULE PO PRN ×2 (08:47→16:51)
[2017-06-30] MEDS: predniSONE 10 MG TABLET PO SCH (08:47)
[2017-06-30] MEDS: Famotidine 20 MG TABLET PO SCH ×2 (08:47→09:09)
[2017-06-30] MEDS: Cholecalciferol (D-3) 1,000 UNIT TABLET PO SCH ×2 (08:47→09:10)
[2017-06-30] MEDS: *HR* HYDROcodone/Acet 5/325 mg TABLET PO PRN ×2 (08:47→16:51)
[2017-06-30] MEDS: CycloSPORINE (SandIMMUNE) 100 MG CAPSULE PO SCH ×3 (08:48→21:30)
[2017-06-30] MEDS: Sulfamethoxazole/Trimeth DS 1 EACH TABLET PO SCH ×2 (08:48→09:09)
[2017-06-30] MEDS: Loratadine 10 MG TABLET PO SCH ×2 (08:48→09:09)
[2017-06-30] MEDS: Furosemide 20 MG/2 ML VIAL IVP SCH ×3 (08:48→09:09)
[2017-06-30] MEDS ORDERED: levoFLOXacin 750 MG TABLET PO SCH ×2 (09:00)
[2017-06-30] MEDS: amLODIPine 5 MG TABLET PO SCH ×2 (09:05→20:32)
[2017-06-30] MEDS ORDERED: Levofloxacin 750 MG/150 ML 750 MG/150 ML BAG IVPB SCH (10:00)
[2017-06-30 12:23] LABS: Adenovirus Not Detected (Not Detect); Coronavirus 229E Not Detected (Not Detect); Coronavirus HKU1 Not Detected (Not Detect); Coronavirus NL63 Not Detected (Not Detect); Coronavirus OC43 Not Detected (Not Detect); Human Metapneumovirus Not Detected (Not Detect); Human Rhinovirus/Enterovirus Not Detected (Not Detect); Influenza A Subtype 2009 H1 Not Detected (Not Detect); Influenza A Untypeable Not Detected (Not Detect); Influenza B Not Detected (Not Detect); Parainfluenza Virus 1 Not Detected (Not Detect); Parainfluenza Virus 2 Not Detected (Not Detect)
[2017-06-30 12:24] LABS: Bordetella Pertussis Not Detected (Not Detect); Chlamydophila pneumoniae Not Detected (Not Detect); Mycoplasma pneumoniae Not Detected (Not Detect); Parainfluenza Virus 3 Not Detected (Not Detect); Parainfluenza Virus 4 Not Detected (Not Detect); Respiratory Syncytial Virus ***DETECTED*** (Not Detect)
[2017-06-30] MEDS: MethylPREDNISolone 40 MG/ML VIAL IVP SCH ×2 (14:56→23:40)
[2017-06-30] MEDS: Acetaminophen 325 MG TABLET PO PRN (20:33)
--- NOTE | 2017-06-30 21:30 | Internal Med Progress Note ---
Date of Encounter: 06/30/17 Time of Encounter: 09:00 - Assessment and plan (1) Acute kidney injury superimposed on chronic kidney disease Current Visit: Yes Status: Acute (2) Acute combined systolic and diastolic congestive heart failure Current Visit: Yes Status: Acute (3) Acute respiratory failure with hypoxia Current Visit: Yes Status: Acute Assessment and plan: Due to CHF exacerbation-seems to be improving-continue with oxygen titrated maintain SPO2 greater than 92%-patient does qualify for oxygen [facility] setting up oxygen for discharge (4) SIRS (systemic inflammatory response syndrome) Current Visit: Yes Status: Resolved Assessment and plan: Patient has elevated white count as well as tachycardia. Suspect this is respiratory related He is experiencing wheezing. We will obtain blood cultures respiratory panel (5) HTN (hypertension) Current Visit: Yes Status: Acute Assessment and plan: stable with home meds Continue home meds Qualifiers: Hypertension type: essential hypertension Qualified Code(s): I10 - Essential (primary) hypertension (6) Diarrhea Current Visit: Yes Status: Resolved Assessment and plan: This seems to have resolved-patient has not had any stool since admission cont close monitoring Qualifiers: Diarrhea type: unspecified type Qualified Code(s): R19.7 - Diarrhea, unspecified (7) Abdominal pain Current Visit: Yes Status: Resolved Assessment and plan: This has resolved -unclear etiology LFTs within normal limits no RUQ abd pain reviewed previous U/S abd and Ct of Abd dated 06/19 2015 showed sludge with small gallstone or polyp cont close monitoring Qualifiers: Abdominal location: generalized Qualified Code(s): R10.84 - Generalized abdominal pain (8) S/P kidney transplant Current Visit: Yes Status: Acute Assessment and plan: Creatinine improving -appears his baseline from 1.2 We will consult nephrology appreciate their recommendations cont home dose of Cyclosporine and prednisone Renal ultrasound has been ordered-still awaiting results (9) Thrombocytopenia Current Visit: Yes Status: Acute Assessment and plan: Platelets are improving we will monitor (10) Bandemia without diagnosis of specific infection Current Visit: Yes Status: Resolved Assessment and plan: Suspect this may be viral infection-appears to be improving blood cultures are negative-appears to be resolved (11) DVT prophylaxis Current Visit: Yes Status: Acute Assessment and plan: 1 we will stop heparin due to thrombocytopenia and place SCDs /BRITTANY (12) COPD exacerbation Current Visit: Yes Status: Acute Assessment and plan: History of COPD patient is wheezing requiring oxygen supplementation. Continue with bronchodilators Steroids Mucinex (13) Pneumonia Current Visit: Yes Status: Suspected Assessment and plan: 1 suspect possible pneumonia has had an extensive stay in the hospital patient has sudden onset of cough wheezing elevated white count no fever he is slightly tachycardic. We will obtain blood cultures chest x-ray empiric coverage HCAP vancomycin and Zosyn Steroids IV Bronchodilators Continue with oxygen titrated maintain SPO2 greater than 92% Sputum culture Qualifiers: Pneumonia type: due to unspecified organism Laterality: unspecified laterality Lung location: unspecified part of lung Qualified Code(s): J18.9 - Pneumonia, unspecified organism - Time Spent With Patient Total time spent is greater than 50% in coordination of care (as documented) at patient's floor/unit and/or counseling patient: - Subjective Interval history: I examined the patient at bedside. Patient sitting on side of bed states he does not feel well he does have a moist nonproductive cough as well as audible wheezes. I did order stat breathing treatments. He is maintaining his oxygen saturations on supplemental oxygen. Lower extremity swelling is improved. Renal function has also improved. - - Constitutional Vitals: Temp Pulse Resp BP Pulse Ox 98.6 F 103 18 121/73 91 06/30/17 19:38 06/30/17 19:38 06/30/17 19:38 06/30/17 19:38 06/30/17 21:15 General appearance: Present: A&O X 3, no acute distress, answers questions appropriately - Head Head exam: Present: atraumatic, normocephalic - Eye Eye exam: Present: PERRL, conjuntiva pink, sclera anicteric Pupils: Present: PERRL - Neck Neck exam general surgery: Present: supple, trachea midline. Absent: lymphadenopathy - Respiratory Respiratory exam: Present: wheezes. Absent: accessory muscle use, rales, rhonchi - Cardiovascular Cardiovascular exam: Present: RRR, +S1, +S2. Absent: diastolic murmur, gallop, rubs, systolic murmur - GI/Abdominal GI/Abdominal exam: Present: normal bowel sounds, soft, no peritoneal signs. Absent: distended, tenderness - Extremities Exam Extremities exam: Present: warm, radial pulses palpable and symmetrical. Absent : calf tenderness, cyanotic, pedal edema - Neurological Exam Neurological exam: Present: CN II-XII intact, oriented X3, no focal deficits. Absent: pronater drift, facial droop, speech deficit Internal Medicine: Result - Labs CBC & Chem 7: 06/30/17 08:07 06/30/17 08:07 Labs: Short CBC 06/30/17 Range/Units 08:07 WBC 12.3 H D (4.3-11.1) K/mcL Hgb 13.3 (12.9-16.9) g/dL Hct 38.3 (37.5-50.1) % Plt Count 134 L (140-400) K/mcL Neutrophils # 9.5 H (1.6-8.9) K/mcL BMP 06/30/17 08:07 Sodium 138 Potassium 4.5 Chloride 99 Carbon Dioxide 32 H BUN 27 H Creatinine 1.44 H Glucose 85 Calcium 9.7 - ABG Interpretation ABG results: PT/INR, D-dimer PT 10.8 Seconds (9.4-12.1) 06/26/17 06:18 - Impressions Impressions Chest X-Ray 06/30/17 08:27 IMPRESSION: Stable cardiomegaly with mild interstitial edema. D/ / Lu Lennon MD / Lu Lennon MD Interpreting Provider: Lu Lennon MD Consult Discharge Plan - Plan Referrals: Domenic Moreno DO [Resident] - 07/04/17 3:15 pm Adebayo Riggins DO [Partnered Physician] - 07/22/17 3:30 pm
[2017-07-01] MEDS: Benzonatate 100 MG CAPSULE PO PRN (03:45)
[2017-07-01] MEDS: Ipratropium/Albuterol Neb 3 ML IH SCH ×4 (04:07→21:49)
[2017-07-01] MEDS: MethylPREDNISolone 40 MG/ML VIAL IVP SCH ×2 (08:45→16:33)
[2017-07-01] MEDS: Loratadine 10 MG TABLET PO SCH (08:45)
[2017-07-01] MEDS: Famotidine 20 MG TABLET PO SCH (08:45)
[2017-07-01] MEDS: CycloSPORINE (SandIMMUNE) 100 MG CAPSULE PO SCH ×2 (08:45→20:26)
[2017-07-01] MEDS: Furosemide 20 MG/2 ML VIAL IVP SCH (08:45)
[2017-07-01] MEDS: Cholecalciferol (D-3) 1,000 UNIT TABLET PO SCH (08:45)
[2017-07-01] MEDS: amLODIPine 5 MG TABLET PO SCH ×2 (08:46→20:27)
[2017-07-01] MEDS: Sulfamethoxazole/Trimeth DS 1 EACH TABLET PO SCH (08:46)
[2017-07-01] MEDS ORDERED: Furosemide 20 MG/2 ML VIAL IVP ONE (16:21)
--- NOTE | 2017-07-01 16:25 | Internal Med Progress Note ---
Date of Encounter: 07/01/17 Time of Encounter: 16:37 - Assessment and plan (1) SIRS (systemic inflammatory response syndrome) Current Visit: Yes Status: Resolved Assessment and plan: Patient has elevated white count as well as tachycardia. CXR without evidence of infiltrate/opacity. Suspect secondary to COPD exacerbation. Respiratory PCR positive for RSV. Change IV Levaquin to azithromycin/ceftriaxone for anti- inflammatory properties. Continue IV steroids. (2) Acute combined systolic and diastolic congestive heart failure Current Visit: Yes Status: Acute Assessment and plan: 06/19/2017 showed LVEF 50%, Mild diastolic dysfunction, Mod-Sev aortic regurgitation, mod mitral regurgitation, mild tricuspid, mild pulmonic. PEBBLES recommended by cardiology which showed moderate aortic regurgitation, moderate to severe mitral regurgitation and mild tricuspid regurgitation. Evaluated by cardiology who recommended continue medical management at this time since EF is normal. Increase IV lasix. (3) HTN (hypertension) Current Visit: Yes Status: Acute Assessment and plan: stable with home meds Continue home meds Qualifiers: Hypertension type: essential hypertension Qualified Code(s): I10 - Essential (primary) hypertension (4) Acute respiratory failure with hypoxia Current Visit: Yes Status: Acute Assessment and plan: Due to CHF exacerbation-seems to be improving-continue with oxygen titrated maintain SPO2 greater than 92%-patient does qualify for oxygen [facility] setting up oxygen for discharge (5) Diarrhea Current Visit: Yes Status: Resolved Assessment and plan: This seems to have resolved-patient has not had any stool since admission cont close monitoring Qualifiers: Diarrhea type: unspecified type Qualified Code(s): R19.7 - Diarrhea, unspecified (6) Abdominal pain Current Visit: Yes Status: Resolved Assessment and plan: This has resolved -unclear etiology LFTs within normal limits no RUQ abd pain reviewed previous U/S abd and Ct of Abd dated 06/19 2015 showed sludge with small gallstone or polyp cont close monitoring Qualifiers: Abdominal location: generalized Qualified Code(s): R10.84 - Generalized abdominal pain (7) S/P kidney transplant Current Visit: Yes Status: Acute Assessment and plan: Creatinine improving -appears his baseline from 1.2 We will consult nephrology appreciate their recommendations cont home dose of Cyclosporine and prednisone Renal ultrasound has been ordered-still awaiting results (8) Thrombocytopenia Current Visit: Yes Status: Acute Assessment and plan: Platelets are improving we will monitor (9) Acute kidney injury superimposed on chronic kidney disease Current Visit: Yes Status: Acute Assessment and plan: history of renal transplant. Follows with Nephrology. With slight increase in renal function this hospitalization. Likely secondary to IV Lasix. Monitor renal function closely with increase in IV Lasix. Nephrology following. (10) COPD exacerbation Current Visit: Yes Status: Acute Assessment and plan: suspected with acute onset of shortness of breath and wheezing. Continue IV azithromycin/ceftriaxone. IV steroids and DuoNeb's. (11) DVT prophylaxis Current Visit: Yes Status: Acute Assessment and plan: SCDs /BRITTANY - Time Spent With Patient Total time spent is greater than 50% in coordination of care (as documented) at patient's floor/unit and/or counseling patient: - Subjective Interval history: Seen and examined at bedside. Patient is new to me, information obtained from chart review and patient report. Still with significant shortness of breath and lower extremity edema. Says he has been set up in a chair which she thinks is contributing to the swelling in his legs. - Constitutional Vitals: Temp Pulse Resp BP Pulse Ox 98.0 F 77 16 107/72 91 07/01/17 14:28 07/01/17 14:28 07/01/17 14:28 07/01/17 14:28 07/01/17 14:28 General appearance: Present: A&O X 3, no acute distress, answers questions appropriately - Head Head exam: Present: atraumatic, normocephalic - Eye Eye exam: Present: PERRL, conjuntiva pink, sclera anicteric Pupils: Present: PERRL - Neck Neck exam general surgery: Present: supple, trachea midline. Absent: lymphadenopathy - Respiratory Respiratory exam: Present: CTAB, rales, rhonchi, wheezes. Absent: accessory muscle use - Cardiovascular Cardiovascular exam: Present: RRR, +S1, +S2. Absent: diastolic murmur, gallop, rubs, systolic murmur - GI/Abdominal GI/Abdominal exam: Present: normal bowel sounds, soft, no peritoneal signs. Absent: distended, tenderness - Extremities Exam Extremities exam: Present: pedal edema, warm, radial pulses palpable and symmetrical. Absent: calf tenderness, cyanotic - Neurological Exam Neurological exam: Present: CN II-XII intact, oriented X3, no focal deficits. Absent: pronater drift, facial droop, speech deficit - Skin Skin exam: Present: dry, intact Internal Medicine: Result - Labs CBC & Chem 7: 06/30/17 08:07 06/30/17 08:07 - ABG Interpretation ABG results: PT/INR, D-dimer PT 10.8 Seconds (9.4-12.1) 06/26/17 06:18 Consult Discharge Plan - Plan Referrals: Domenic Moreno DO [Resident] - 07/04/17 3:15 pm Adebayo Riggins DO [Partnered Physician] - 07/22/17 3:30 pm
[2017-07-01] MEDS: Azithromycin 500 MG in D5% in Water 250 ML IVPB SCH (17:30)
[2017-07-01] MEDS: cefTRIAXone 1,000 MG in Water for inj. (sterile) 20 ML 10 ML IVP SCH (17:31)
[2017-07-01] MEDS: Acetaminophen 325 MG TABLET PO PRN (20:25)
[2017-07-02] MEDS: MethylPREDNISolone 40 MG/ML VIAL IVP SCH ×4 (00:05→23:57)
[2017-07-02] MEDS: Benzonatate 100 MG CAPSULE PO PRN ×2 (00:05→20:08)
[2017-07-02 03:49] LABS: Hematocrit 33.6 % (37.5-50.1); Hemoglobin 11.6 g/dL (12.9-16.9); Mean Corpuscular HGB Conc 34.5 g/dL (31.6-35.5); Mean Corpuscular Hemoglobin 34.7 pg (28.0-33.3); Mean Corpuscular Volume 100.6 fL (83.0-100.0); Mean Platelet Volume 10.6 fL (9.4-12.4); Platelet Count 117 K/mcL (140-400); Red Blood Count 3.34 M/mcL (4.19-5.50); Red Cell Distribution Width 13.1 % (11.5-14.5)
[2017-07-02] MEDS: Ipratropium/Albuterol Neb 3 ML IH SCH ×4 (03:50→22:25)
[2017-07-02 04:05] LABS: Calcium 9.1 mg/dL (8.6-10.3); Potassium 4.7 mEq/L (3.5-5.1)
--- NOTE | 2017-07-02 08:56 | Nephrology Progress Note ---
Date of Encounter: 07/02/17 Time of Encounter: 08:54 - Assessment and Plan (1) Acute kidney failure, unspecified Current Visit: Yes Status: Acute Patient's acute kidney injury in the setting of congestive heart failure related to valvular heart disease. Is concerning that the patient's renal function worsens whenever his diuretics are increased. It is difficult to keep him out of congestive heart failure without the diuretics. This suggests to me that the patient's valvular dysfunction may be more significant than initially presumed. It may be worthwhile to consider transfer to [facility] for further evaluation of the patient's valvular heart disease. He could also be seen by renal transplant up there as well. Qualifiers: Acute renal failure type: unspecified Qualified Code(s): N17.9 - Acute kidney failure, unspecified (2) Aortic regurgitation Current Visit: Yes Status: Acute Qualifiers: Cardiac valve disease etiology: nonrheumatic Qualified Code(s): I35.1 - Nonrheumatic aortic (valve) insufficiency (3) Mitral regurgitation Current Visit: Yes Status: Acute Qualifiers: Cardiac valve disease etiology: nonrheumatic Qualified Code(s): I34.0 - Nonrheumatic mitral (valve) insufficiency (4) Pulmonary hypertension Current Visit: Yes Status: Acute (5) S/P kidney transplant Current Visit: Yes Status: Acute (6) Rheumatoid arteritis Current Visit: Yes Status: Acute Subjective Principal diagnosis: CHF Interval history: Patient reports she is feeling some better. He is coughing has improved somewhat. He still has evidence of wheezing on lung exam. His Lasix was increased yesterday. His serum creatinine is worse today. His creatinine is up to 2.4 to today. Objective - Vital Signs Vital signs: Vital Signs Temp Pulse Resp BP Pulse Ox 07/02/17 07:14 97.7 F 92 16 124/82 94 07/02/17 04:45 97.7 F 97 18 115/63 91 07/02/17 03:50 24 92 07/02/17 00:18 98.1 F 98 18 122/75 95 07/01/17 21:50 20 93 07/01/17 20:00 96 07/01/17 19:16 97.6 F 96 18 117/74 93 07/01/17 15:17 18 90 07/01/17 14:28 98.0 F 77 16 107/72 91 07/01/17 11:09 18 90 07/01/17 10:56 97.6 F 93 16 142/84 90 Intake and Output 07/01/17 07/02/17 07/02/17 23:59 07:59 15:59 Intake Total 260 / 260 300 / 300 Output Total 300 / 300 600 / 600 Balance -40 / -40 -300 / -300 Intake: IV Fluids 260 / 260 Rocephin 1,000 MG In Water for inj. (sterile) 10 ML @ 300 mls/ hr IVP Q24H [facility] Rx#:[id number] Zithromax 500 mg In Dextrose 5% 250 / 250 250 ML @ 252 mls/hr IVPB Q24H [facility] Rx#:[id number] Oral 300 / 300 Output: Urine 300 / 300 600 / 600 Other: Meal Dinner Percent of Meal Consumed 95% Weight 112.4 kg Patient Weight 07/02/17 23:59 Weight 112.4 kg - General Appearance Exam: Patient is sitting up in a chair eating breakfast. He is alert and oriented. He is in no acute distress. Lungs demonstrate bilateral expiratory wheezing. Heart regular rate and rhythm with a 2/6 talk ejection murmur. Abdomen is benign. It is somewhat distended. Patient continues to have lower extremity swelling which appear stable to me. - Lab 07/02/17 03:25 07/02/17 03:25 Most recent lab results Calcium 9.1 mg/dL (8.6-10.3) 07/02/17 03:25 Magnesium 1.6 mg/dL (1.6-2.6) 06/24/17 05:57 Urine Creatinine 90 mg/dL 06/26/17 10:51 Ur Total Protein 24 Hr 1095 mg/day (50-80) H 06/26/17 10:51 Urine Total Protein 55 mg/dL (1-14) H 06/26/17 10:51 Consult Discharge Plan - Plan Referrals: Domenic Moreno DO [Resident] - 07/04/17 3:15 pm Adebayo Riggins DO [Partnered Physician] - 07/22/17 3:30 pm
[2017-07-02] MEDS ORDERED: Furosemide 40 MG/4 ML VIAL IVP SCH (09:00)
[2017-07-02] MEDS: Loratadine 10 MG TABLET PO SCH (09:35)
[2017-07-02] MEDS: Sulfamethoxazole/Trimeth DS 1 EACH TABLET PO SCH (09:36)
[2017-07-02] MEDS: CycloSPORINE (SandIMMUNE) 100 MG CAPSULE PO SCH ×2 (09:36→20:08)
[2017-07-02] MEDS: amLODIPine 5 MG TABLET PO SCH ×2 (09:36→20:07)
[2017-07-02] MEDS: Cholecalciferol (D-3) 1,000 UNIT TABLET PO SCH (09:36)
[2017-07-02] MEDS: Famotidine 20 MG TABLET PO SCH (09:36)
[2017-07-02] MEDS: Acetaminophen 325 MG TABLET PO PRN ×2 (12:33→20:10)
[2017-07-02] MEDS: cefTRIAXone 1,000 MG in Water for inj. (sterile) 20 ML 10 ML IVP SCH (15:49)
[2017-07-02] MEDS: Azithromycin 500 MG in D5% in Water 250 ML IVPB SCH (15:50)
--- NOTE | 2017-07-02 16:52 | Internal Med Progress Note ---
Date of Encounter: 07/02/17 Time of Encounter: 16:50 - Assessment and plan (1) Acute combined systolic and diastolic congestive heart failure Current Visit: Yes Status: Acute Assessment and plan: 06/19/2017 showed LVEF 50%, Mild diastolic dysfunction, Mod-Sev aortic regurgitation, mod mitral regurgitation, mild tricuspid, mild pulmonic. PEBBLES recommended by cardiology which showed moderate aortic regurgitation, moderate to severe mitral regurgitation and mild tricuspid regurgitation. Evaluated by cardiology who recommended continue medical management at this time since EF is normal. Hold on diuresis at this time with worsening renal function. Continue daily weights, strict I's and O's and fluid restriction. Cardiology reconsulted (2) Acute kidney injury superimposed on chronic kidney disease Current Visit: Yes Status: Acute Assessment and plan: history of renal transplant. Follows with Nephrology. Renal functioning worsening secondary to IV Lasix. Evaluated by nephrology on 07/02 who recommended possible transfer to [facility] as it is going be difficult to to keep him at his CHS with diuresis without damaging kidneys. Stopping Lasix at this time. Nephrology following (discussed with Dr. Lamar on 07/02/17) (3) SIRS (systemic inflammatory response syndrome) Current Visit: Yes Status: Resolved Assessment and plan: Patient has elevated white count as well as tachycardia. CXR without evidence of infiltrate/opacity. Suspect secondary to COPD exacerbation. Respiratory PCR positive for RSV. Change IV Levaquin to azithromycin/ceftriaxone for anti- inflammatory properties. Continue IV steroids. (4) HTN (hypertension) Current Visit: Yes Status: Acute Assessment and plan: stable with home meds Continue home meds Qualifiers: Hypertension type: essential hypertension Qualified Code(s): I10 - Essential (primary) hypertension (5) Acute respiratory failure with hypoxia Current Visit: Yes Status: Acute Assessment and plan: Due to CHF exacerbation-seems to be improving-continue with oxygen titrated maintain SPO2 greater than 92%-patient does qualify for oxygen [facility] services setting up oxygen for discharge (6) Diarrhea Current Visit: Yes Status: Resolved Assessment and plan: This seems to have resolved-patient has not had any stool since admission cont close monitoring Qualifiers: Diarrhea type: unspecified type Qualified Code(s): R19.7 - Diarrhea, unspecified (7) Abdominal pain Current Visit: Yes Status: Resolved Assessment and plan: This has resolved -unclear etiology LFTs within normal limits no RUQ abd pain reviewed previous U/S abd and Ct of Abd dated 06/19 2015 showed sludge with small gallstone or polyp cont close monitoring Qualifiers: Abdominal location: generalized Qualified Code(s): R10.84 - Generalized abdominal pain (8) S/P kidney transplant Current Visit: Yes Status: Acute Assessment and plan: Creatinine improving -appears his baseline from 1.2 We will consult nephrology appreciate their recommendations cont home dose of Cyclosporine and prednisone Renal ultrasound has been ordered-still awaiting results (9) Thrombocytopenia Current Visit: Yes Status: Acute Assessment and plan: Platelets are improving we will monitor (10) COPD exacerbation Current Visit: Yes Status: Acute Assessment and plan: suspected with acute onset of shortness of breath and wheezing. Continue IV azithromycin/ceftriaxone. IV steroids and DuoNeb's. (11) DVT prophylaxis Current Visit: Yes Status: Acute Assessment and plan: SCDs /BRITTANY - Time Spent With Patient Total time spent is greater than 50% in coordination of care (as documented) at patient's floor/unit and/or counseling patient: - Subjective Interval history: Seen and examined at bedside. Still short of breath and has productive cough at times, no chest pain. He is agreeable to stay overnight for further diuresis and treatment of COPD exacerbation. Discussed case with nephrology and will hold on transfer to [facility] at this time. Repeat chest x-ray and compared to previous. Cardiology reconsulted - Constitutional Vitals: Temp Pulse Resp BP Pulse Ox 97.3 F L 56 18 116/66 95 07/02/17 16:15 07/02/17 16:15 07/02/17 16:15 07/02/17 16:15 07/02/17 16:15 General appearance: Present: A&O X 3, morbidly obese, no acute distress, answers questions appropriately - Head Head exam: Present: atraumatic, normocephalic - Eye Eye exam: Present: PERRL, conjuntiva pink, sclera anicteric Pupils: Present: PERRL - Neck Neck exam general surgery: Present: supple, trachea midline. Absent: lymphadenopathy - Respiratory Respiratory exam: Present: CTAB, rales, rhonchi, wheezes. Absent: accessory muscle use - Cardiovascular Cardiovascular exam: Present: RRR, +S1, +S2. Absent: diastolic murmur, gallop, rubs, systolic murmur - GI/Abdominal GI/Abdominal exam: Present: normal bowel sounds, soft, no peritoneal signs. Absent: distended, tenderness - Extremities Exam Extremities exam: Present: pedal edema, warm, radial pulses palpable and symmetrical. Absent: calf tenderness, cyanotic - Neurological Exam Neurological exam: Present: CN II-XII intact, oriented X3, no focal deficits. Absent: pronater drift, facial droop, speech deficit - Skin Skin exam: Present: dry, intact Internal Medicine: Result - Labs CBC & Chem 7: 07/02/17 03:25 07/02/17 03:25 Labs: Short CBC 07/02/17 Range/Units 03:25 WBC 9.3 (4.3-11.1) K/mcL Hgb 11.6 L D (12.9-16.9) g/dL Hct 33.6 L (37.5-50.1) % Plt Count 117 L (140-400) K/mcL BMP 07/02/17 03:25 Sodium 136 Potassium 4.7 Chloride 98 Carbon Dioxide 30 H BUN 65 H Creatinine 2.42 H Glucose 153 H Calcium 9.1 - ABG Interpretation ABG results: PT/INR, D-dimer PT 10.8 Seconds (9.4-12.1) 06/26/17 06:18 Consult Discharge Plan - Plan Referrals: Domenic Moreno DO [Resident] - 07/04/17 3:15 pm Adebayo Riggins DO [Partnered Physician] - 07/22/17 3:30 pm
[2017-07-03] MEDS: Ipratropium/Albuterol Neb 3 ML IH SCH ×3 (04:02→15:46)
[2017-07-03 05:29] LABS: Red Cell Distribution Width 13.2 % (11.5-14.5)
[2017-07-03 05:31] LABS: Hematocrit 37.3 % (37.5-50.1); Hemoglobin 12.4 g/dL (12.9-16.9); Immature Platelets 2.8 % (1.1-6.1); Mean Corpuscular HGB Conc 33.2 g/dL (31.6-35.5); Mean Corpuscular Hemoglobin 35.3 pg (28.0-33.3); Mean Corpuscular Volume 106.3 fL (83.0-100.0); Mean Platelet Volume 11.5 fL (9.4-12.4); Red Blood Count 3.51 M/mcL (4.19-5.50)
[2017-07-03 05:46] LABS: Calcium 9.1 mg/dL (8.6-10.3)
[2017-07-03] MEDS ORDERED: Sulfamethoxazole/Trimeth DS 1 EACH TABLET PO SCH (09:00)
[2017-07-03] MEDS: Loratadine 10 MG TABLET PO SCH (10:23)
[2017-07-03] MEDS: amLODIPine 5 MG TABLET PO SCH ×2 (10:23→20:07)
[2017-07-03] MEDS: Cholecalciferol (D-3) 1,000 UNIT TABLET PO SCH (10:23)
[2017-07-03] MEDS: Famotidine 20 MG TABLET PO SCH (10:23)
[2017-07-03] MEDS: MethylPREDNISolone 40 MG/ML VIAL IVP SCH ×2 (10:24→16:09)
--- NOTE | 2017-07-03 10:34 | Nephrology Progress Note ---
Date of Encounter: 07/03/17 Time of Encounter: 10:31 - Assessment and Plan (1) Acute kidney failure, unspecified Current Visit: Yes Status: Acute Patient's acute kidney injury in the setting of congestive heart failure related to valvular heart disease. Is concerning that the patient's renal function worsens whenever his diuretics are increased. It is difficult to keep him out of congestive heart failure without the diuretics. I believe cardiology is going to come back and reevaluate the patient today. I do not think we have any choice but to place the patient on diuretics. I am going to reorder the ultrasound of the patient's kidney transplant. This was done days earlier and never completed. Qualifiers: Acute renal failure type: unspecified Qualified Code(s): N17.9 - Acute kidney failure, unspecified (2) Aortic regurgitation Current Visit: Yes Status: Acute Qualifiers: Cardiac valve disease etiology: nonrheumatic Qualified Code(s): I35.1 - Nonrheumatic aortic (valve) insufficiency (3) Mitral regurgitation Current Visit: Yes Status: Acute Qualifiers: Cardiac valve disease etiology: nonrheumatic Qualified Code(s): I34.0 - Nonrheumatic mitral (valve) insufficiency (4) Pulmonary hypertension Current Visit: Yes Status: Acute (5) S/P kidney transplant Current Visit: Yes Status: Acute (6) Rheumatoid arteritis Current Visit: Yes Status: Acute Subjective Principal diagnosis: CHF Interval history: The patient was sleeping when I came in to see him this morning. He was difficult to arouse. His serum creatinine is gone from 2.42 up to 2.52. He continues to have wheezing on lung exam. Urine output is recorded as 950 mL yesterday. The transplant renal ultrasound that was ordered many days ago and has still not been completed. Objective - Vital Signs Vital signs: Vital Signs Temp Pulse Resp BP Pulse Ox 07/03/17 07:53 97.6 F 98 17 145/88 94 07/03/17 04:02 18 93 07/03/17 03:26 97.5 F L 96 20 130/77 93 07/02/17 23:27 98.5 F 96 20 133/70 94 07/02/17 22:25 18 97 07/02/17 18:57 97.6 F 101 18 146/64 94 07/02/17 16:15 97.3 F L 56 18 116/66 95 07/02/17 15:59 18 93 07/02/17 12:07 97.8 F 63 18 119/70 96 07/02/17 10:59 18 89 Intake and Output 07/02/17 07/03/17 07/03/17 23:59 07:59 15:59 Intake Total 810 / 810 240 / 240 Output Total 350 / 350 700 / 700 Balance 460 / 460 -700 / -700 240 / 240 Intake: IV Fluids Rocephin 1,000 MG In Water for inj. (sterile) 10 ML @ 300 mls/ hr IVP Q24H [facility] Rx#:[id number] Oral 500 / 500 240 / 240 Free Water 300 / 300 Output: Urine 350 / 350 700 / 700 Other: Meal Dinner Percent of Meal Consumed 100% Weight 113.1 kg Patient Weight 07/03/17 23:59 Weight 113.1 kg - General Appearance Exam: Patient is sleeping. He appears be resting comfortably. He is in no acute distress. He was difficult to arouse. Lungs demonstrate bilateral expiratory wheezing. Heart regular rate and rhythm with a 2/6 soft ejection murmur. He has at least 2+ lower extremity swelling. - Lab 07/03/17 05:03 07/03/17 05:03 Most recent lab results Calcium 9.1 mg/dL (8.6-10.3) 07/03/17 05:03 Magnesium 1.6 mg/dL (1.6-2.6) 06/24/17 05:57 Urine Creatinine 90 mg/dL 06/26/17 10:51 Ur Total Protein 24 Hr 1095 mg/day (50-80) H 06/26/17 10:51 Urine Total Protein 55 mg/dL (1-14) H 06/26/17 10:51 Consult Discharge Plan - Plan Referrals: Adebayo Riggins DO [Partnered Physician] - 07/22/17 3:30 pm
[2017-07-03] MEDS: CycloSPORINE (SandIMMUNE) 100 MG CAPSULE PO SCH (11:09)
[2017-07-03] MEDS ORDERED: Furosemide 40 MG/4 ML VIAL IVP ONE (15:39)
--- NOTE | 2017-07-03 16:05 | Discharge Summary ---
Orders not resulted at time of discharge: Pending orders 06/25/17 08:26 Retroperitoneal Ultrasound - Complete [US retroperitoneal comp] [US] Routine 06/30/17 09:44 Culture,Blood [BC] Stat 07/03/17 11:02 Cyclosporine A 2Hr p Dose (C2) Stat 07/03/17 14:30 Retroperitoneal Ultrasound - Complete [US retroperitoneal comp] [US] Stat 07/04/17 04:00 BMP [Basic Metabolic Panel] AM 0400 Complete Blood Count [HEME] AM 0400 Complete Blood Count w/o Diff [HEME] AM 0400 Comprehensive Metabolic Panel AM 0400 07/05/17 04:00 BMP [Basic Metabolic Panel] AM 0400 Complete Blood Count w/o Diff [HEME] AM 0400 07/06/17 04:00 BMP [Basic Metabolic Panel] AM 0400 Complete Blood Count w/o Diff [HEME] AM 0400 07/07/17 04:00 BMP [Basic Metabolic Panel] AM 0400 Complete Blood Count w/o Diff [HEME] AM 0400 Date of Encounter: 07/03/17 Time of Encounter: 16:03 - Discharge Diagnosis (1) Acute kidney injury superimposed on chronic kidney disease Priority: Primary Status: Acute Comments: history of renal transplant. Follows with Nephrology. Renal functioning worsening secondary to IV Lasix however he continues to have adequate urinary output. Plan to transfer to [facility]'s transplant team once bed becomes available. (2) Acute combined systolic and diastolic congestive heart failure Priority: Primary Status: Acute Comments: 06/19/2017 showed LVEF 50%, Mild diastolic dysfunction, Mod-Sev aortic regurgitation, mod mitral regurgitation, mild tricuspid, mild pulmonic. PEBBLES recommended by cardiology which showed moderate aortic regurgitation, moderate to severe mitral regurgitation and mild tricuspid regurgitation. Repeat CXR with worsening pulmonary edema on 07/03/17; remains symptomatic with rails, shortness of breath and lower extremity edema. Continue IV Lasix. Transfer to [facility] when bed available. (3) S/P kidney transplant Priority: Primary Status: Acute Comments: hx kidney transplant in the late at [facility]. Has not seen the transplant team at [facility] since 2012. Plan to transfer to [facility] once bed available. Continue cyclosporine, Bactrim (4) SIRS (systemic inflammatory response syndrome) Priority: Primary Status: Resolved Comments: with elevated white count as well as tachycardia. CXR without evidence of infiltrate/opacity. Suspect secondary to COPD exacerbation. Respiratory PCR positive for RSV. Change IV Levaquin to azithromycin/ceftriaxone for anti- inflammatory properties. Continue IV steroids. (5) Acute respiratory failure with hypoxia Priority: Primary Status: Acute Comments: acute on chronic acute respiratory failure with hypoxia. Wears oxygen 2 L at baseline; now requiring 4-5 L to maintain adequate saturations. Multifactorial with COPD/CHF exacerbation. Continue treating underlying causes. Wean O2 as able. (6) HTN (hypertension) Priority: Primary Status: Acute Comments: per hx. Cont home BP medications Qualifiers: Hypertension type: essential hypertension Qualified Code(s): I10 - Essential (primary) hypertension (7) Thrombocytopenia Priority: Primary Status: Acute Comments: appears to be somewhat chronic. PLTs 67 at time of discharge. No active bleeding. Defer further workup to [facility] (8) COPD exacerbation Priority: Primary Status: Acute Comments: Respiratory PCR positive for RSV. Change IV Levaquin to azithromycin/ ceftriaxone for anti-inflammatory properties. Continue IV steroids. Hospital course: Mr. Woodruff is a 62 year old male Discharge discussed with: patient (Seen and examined at bedside. Discussed case with cardiology and nephrology who both agree patient to be transferred to [facility] so he can be monitored by the transplant team. He requires IV diuresis to keep on his CHF however his renal function continues to worsen. Patient agreeable to plan. Still with shortness of breath, cough and lower extremity edema. He is making urine.) - Time Spent with Patient Total time spent providing and/or coordinating discharge services: - Discharge Medications Home Medications: Acetaminophen [Non-Aspirin] 325 mg PO Q6H PRN 06/23/17 [History] Allopurinol [Zyloprim] 300 mg PO DAILY 06/23/17 [History] Aspirin [Lo-Dose Aspirin EC] 81 mg PO DAILY 06/23/17 [History] Atenolol [Tenormin] 25 mg PO BID 06/23/17 [History] Docusate Sodium [Dok] 200 mg PO QAM 06/23/17 [History] Ergocalciferol (VITAMIN D2) [Vitamin D2] 50,000 unit PO DAILY 06/23/17 [History] Famotidine [Heartburn Prevention] 20 mg PO DAILY 06/23/17 [History] Furosemide [Lasix] 20 mg PO BID 06/23/17 [History] Loratadine [Allergy Relief] 10 mg PO DAILY 06/23/17 [History] Potassium Chloride [K-Tab ER] 20 meq PO QAM 06/23/17 [History] Pravastatin Sodium [Pravachol] 40 mg PO HS 06/23/17 [History] Sennosides/Docusate Sodium [Senna-Docusate Sodium Tablet] 2 tab PO DAILY PRN 12/02 [History] Sertraline [Zoloft] 25 mg PO DAILY 06/23/17 [History] Sulfamethoxazole/Trimeth DS [Bactrim DS] 1 tab PO QAM 06/23/17 [History] amLODIPine [Norvasc] 5 mg PO DAILY 06/23/17 [History] cycloSPORINE [Cyclosporine] 100 mg PO BID 06/23/17 [History] predniSONE [PredniSONE] 10 mg PO DAILY 06/23/17 [History] Allergies/Adverse Reactions: 3 Allergy/AdvReac Type Severity Reaction Status Date / Time No Known Allergies Allergy Verified 06/19/15 16:58 Date of admission: 06/23/17 21:14 Primary care physician: PCP NONE Consults: 06/24/17 16:14 Consult to Cardiology [CONS] Routine Comment: Consulting Provider: Cardiology Stacey Reason for Consult: CHF Time Notified: 16:15 Call Completed: Yes 06/24/17 16:15 Consult to Nephrology [CONS] Routine Consulting Provider: [facility] Bautista HUNT Reason for Consult: elevated creatinine Time Notified: 16:15 Call Completed: Yes 06/25/17 10:31 Consult to Rheumatology [CONS] Routine Consulting Provider: Adebayo Riggins Reason for Consult: Hx of RA- Valve heart disease Time Notified: 10:33 Call Completed: Yes 06/25/17 16:50 Consult to Physical Therapy [CONS] Routine Comment: Evaluate, develop and implement POC Reason for Consult: eval and treat Does patient have active BEDREST order?: No Is patient medically & hemodynamically stable?: Yes 06/27/17 16:24 Consult to Technical Sales Manager [CONS] Routine Reason for SW Consult: oxygen needs, patient did qualify 06/29/17 22:52 Consult to Respiratory Therapy [CONS] Routine Reason for Consult: Add flutter valve to pts. breathing txs. Call Completed: Yes Discharging clinician: Maria E Jean Anticipated date of discharge: 07/03/17 - Constitutional Vitals: Temp Pulse Resp BP Pulse Ox 97.6 F 100 16 143/85 96 07/03/17 15:51 07/03/17 15:51 07/03/17 15:51 07/03/17 15:51 07/03/17 15:51 General appearance: Present: A&O X 3, morbidly obese, no acute distress, answers questions appropriately - Head Head exam: Present: atraumatic, normocephalic - Eye Eye exam: Present: PERRL, conjuntiva pink, sclera anicteric Pupils: Present: PERRL - Neck Neck exam general surgery: Present: supple, trachea midline. Absent: lymphadenopathy - Respiratory Respiratory exam: Present: CTAB, rales, respiratory distress, rhonchi. Absent: accessory muscle use, wheezes - Cardiovascular Cardiovascular exam: Present: RRR, +S1, +S2. Absent: diastolic murmur, gallop, rubs, systolic murmur - GI/Abdominal GI/Abdominal exam: Present: normal bowel sounds, soft, no peritoneal signs. Absent: distended, tenderness - Extremities Exam Extremities exam: Present: pedal edema, warm, radial pulses palpable and symmetrical. Absent: calf tenderness, cyanotic - Neurological Exam Neurological exam: Present: CN II-XII intact, oriented X3, no focal deficits. Absent: pronater drift, facial droop, speech deficit - Skin Skin exam: Present: dry, intact - Patient Status Disposition: Transfer Other Condition: Good Overall status at discharge: patient is progressing back to baseline - Discharge Instructions Follow Up With: Adebayo Riggins DO [Partnered Physician] - 07/22/17 3:30 pm - Diet and Activity Activity: increase activity as tolerated Diet: diabetic diet, low fat, low cholesterol
[2017-07-03] MEDS: cefTRIAXone 1,000 MG in Water for inj. (sterile) 20 ML 10 ML IVP SCH (16:09)
[2017-07-03] MEDS: Azithromycin 500 MG in D5% in Water 250 ML IVPB SCH (16:10)
[2017-07-03 19:10] VITALS: BP 123/72
[2017-07-03] MEDS ORDERED: Furosemide 40 MG/4 ML VIAL IVP SCH (21:00)
== END 2017-07-03 20:29 | disposition short-term general hospital (02) | DRG 682 ==
LOC: 3BNU 16:28 → EMEROO 16:28 → 3BNU 22:06
PROVIDERS: ADMIT Family Medicine; ATTEND Registered Nurse

== ENCOUNTER 2018-07-12 23:25 | Inpatient (IN) ==
[2018-07-12] MEDS ORDERED: Furosemide 40 MG/4 ML VIAL IVP ONE (23:40)
--- NOTE | 2018-07-13 00:22 | Emergency Department Note ---
Disposition Clinical Impression: Abdominal wall fluid collections, Hypoxia, Thrombocytopenia Congestive heart failure Qualifiers: Heart failure type: unspecified Heart failure chronicity: acute Qualified Code(s): I50.9 - Heart failure, unspecified Disposition: Admitted As Inpatient Condition: Fair Referrals: Karley Brito MD [Primary Care Provider] - Time of Disposition: 01:11 SOB HPI - General Chief Complaint: ED Shortness of Breath/Dyspnea Stated Complaint: SOB Time Seen by Provider: 07/12/18 23:30 Source: patient, EMS Mode of arrival: EMS Limitations: physical limitation Nursing Notes Reviewed: Yes Vital Signs Reviewed: Yes - History of Present Illness Patient presents emergency room by EMS for evaluation of shortness of breath. Patient has long-standing history of fluid overload and renal insufficiency. Patient denies any recent fevers or chills. He has not had any nausea vomiting or diarrhea. Denies any headache or vision change patient says that he has orthopnea while lying flat. He otherwise is clinically stable. Pt Subjective Complaint: shortness of breath Onset (ago): [employer] Context: other Severity: moderate Consistency/Duration: intermittent Improves with: oxygen, rest, upright position Worsens with: lying flat Known history of: congestive heart failure Associated symptoms: Reports: orthopnea, lower extremity pain Treatment prior to arrival: oxygen Cough present: No - Related Data Home Medications Medication Instructions Recorded Confirmed Acetaminophen [Non-Aspirin] 325 mg PO Q6H PRN 06/23/17 06/23/17 Allopurinol [Zyloprim] 300 mg PO DAILY 06/23/17 06/23/17 Aspirin [Lo-Dose Aspirin EC] 81 mg PO DAILY 06/23/17 06/23/17 Atenolol [Tenormin] 25 mg PO BID 06/23/17 06/23/17 Docusate Sodium [Dok] 200 mg PO QAM 06/23/17 06/23/17 Ergocalciferol (VITAMIN D2) 50,000 unit PO DAILY 06/23/17 06/23/17 [Vitamin D2] Famotidine [Heartburn Prevention] 20 mg PO DAILY 06/23/17 06/23/17 Furosemide [Lasix] 20 mg PO BID 06/23/17 06/23/17 Loratadine [Allergy Relief] 10 mg PO DAILY 06/23/17 06/23/17 Potassium Chloride [K-Tab ER] 20 meq PO QAM 06/23/17 06/23/17 Pravastatin Sodium [Pravachol] 40 mg PO HS 06/23/17 06/23/17 Sennosides/Docusate Sodium 2 tab PO DAILY PRN 06/23/17 06/23/17 [Senna-Docusate Sodium Tablet] Sertraline [Zoloft] 25 mg PO DAILY 06/23/17 06/23/17 Sulfamethoxazole/Trimeth DS 1 tab PO QAM 06/23/17 06/23/17 [Bactrim DS] amLODIPine [Norvasc] 5 mg PO DAILY 06/23/17 06/23/17 cycloSPORINE [Cyclosporine] 100 mg PO BID 06/23/17 06/23/17 predniSONE [PredniSONE] 10 mg PO DAILY 06/23/17 06/23/17 Allergies Allergy/AdvReac Type Severity Reaction Status Date / Time No Known Allergies Allergy Verified 06/19/15 16:58 All systems ED: reviewed and negative except as stated. Review of Systems: As Per HPI Constitutional: Denies: fever, chills Cardiovascular: Reports: dyspnea on exertion, orthopnea, edema. Denies: chest pain, palpitations Respiratory: Denies: cough, dyspnea, wheezes, hemoptysis Gastrointestinal: Denies: abdominal pain, nausea, vomiting, diarrhea Genitourinary: Denies: urgency, dysuria Musculoskeletal: Denies: back pain, neck pain Integumentary: Denies: rash Neurological: Denies: headache Past Medical History - Past Medical History Attestation: Yes The following information was validated with the patient. Source: patient Medical history: Reports: CHF, hyperlipidemia, hypertension, RA, valvular heart disease Surgical history: Reports: orthopedic, other, other Psychiatric history: Reports: depression - Social History Smoking Status: Former smoker Smokeless Tobacco Status: No Alcohol use: Reports: occasionally Drug use: Reports: none Physical Exam - General Limitations: physical limitation General appearance: alert - Head Head exam: atraumatic, normocephalic, normal inspection - ENT ENT exam: normal exam, normal oropharynx, mucous membranes moist - Neck Neck exam: Present: normal inspection, full ROM, trachea midline - Chest Chest inspection: Present: normal inspection, symmetric chest wall rise - Respiratory Respiratory exam: Present: normal lung sounds bilaterally, accessory muscle use. Absent: respiratory distress, wheezes - Cardiovascular Cardiovascular exam: Present: regular rate, normal rhythm, normal heart sounds - Abdominal Exam Abdominal exam: Present: soft, Non-Tender, normal bowel sounds. Absent: tenderness, distention, guarding, rebound, rigidity, Skinner's sign, Rovsing's sign, tenderness at McBurney's Point - Extremities Exam Extremities exam: Present: normal inspection, full ROM, normal capillary refill, pedal edema. Absent: tenderness - Back Exam Back exam: Present: normal inspection. Absent: full ROM, tenderness, CVA tenderness (R), CVA tenderness (L) - Neurological Exam Neurological exam: Present: alert, oriented X3, CN II-XII intact, normal gait - Skin Skin exam: Present: warm, dry, intact, normal color Course Course Narrative: Patient seen and examined the time of arrival. See history of present illness. 62-year-old male presents from longterm facility for complaint of shortness of breath. Patient has chronic orthopnea. He does have a renal transplant and is on dialysis. Patient has left-sided fistula. Patient denies any falls trauma or injury. He has not had any fevers or chills. No nausea vomiting or diarrhea. No headache or vision change. Patient has been compliant with his medications and his treatment at this time. Vital signs are stable transport. Patient is resting comfortably in the bed. Lungs are clear to auscultation on presentation. Heart is regular. Abdomen is soft. Patient has diffuse swelling to the abdominal wall without to the lower extremities and +2 pitting edema. Since consistent with anasarca. Patient is saying these have any proximally 1600 mL of urine output per day. He is previously a renal transplant patient does have a fistula and left hand that is not currently in dialysis. She is denying any other symptoms or complaints at this point. Workup for fluid overload and dyspnea will be completed this time with EKG chest x-ray CBC chemistry troponin and BNP along with urinalysis. Single dose of Lasix will be given. Patient will be monitored closely. He is coming from the nursing facility and dependent upon the findings, as well as the patient's symptoms, disposition will be determined. Patient is otherwise clinically stable at this point. - Reevaluation(s) Reevaluation #1: Patient was hypoxic down to 80% with his oxygen off. Even slight conversation made him dyspneic. He typically does not require oxygen all the time throughout the day. Patient is requiring 4 L of oxygen to keep his pulse ox above 92%. Patient will be admitted for diuresis and fluid removal. He is otherwise stable. No other concerns or noted at this time. Labs and imaging are reviewed. Hospitalist has been paged for admission. Time: 01:07 Vital Signs Temperature 97.8 F 07/12/18 23:34 Pulse Rate 84 07/12/18 23:34 Respiratory Rate 16 07/12/18 23:34 Blood Pressure 141/85 07/12/18 23:34 O2 Sat by Pulse Oximetry 96 07/12/18 23:34 Temperature 97.8 F 07/12/18 23:34 Pulse Rate 84 07/12/18 23:34 Respiratory Rate 16 07/12/18 23:34 Blood Pressure 141/85 07/12/18 23:34 O2 Sat by Pulse Oximetry 96 07/12/18 23:34 Oxygen Delivery Oxygen Delivery Nasal Cannula Shortness of Breath/Dyspnea - MDM Narrative Medical decision making narrative: Dyspnea, fluid overload - Medical Records Medical records reviewed: Yes I reviewed the patient's medical records. - Lab Data Lab results reviewed: Yes I reviewed the patient's lab results. - Radiology Data Radiology results reviewed: Yes I reviewed the patient's radiology results. Chest x-ray shows pulmonary congestion with no signs of pneumonia. - EKG Data EKG attestation: Yes I reviewed and interpreted this EKG. EKG results narrative: EKG shows sinus rhythm. Heart rate of 82. SC interval 165. QRS duration of 109. QTC of 462. Graham is normal. No acute signs of ST segment elevation or abnormality. Chronic T-wave inversion is noted in lead aVL and warm. Lateral precordial leads appear to be stable. No acute signs of ST segment elevation or abnormality at this time. No acute signs of WPW or Brugada syndrome. Compared to previous EKG of 06/24/17 with no acute changes
[2018-07-13 00:25] LABS: Basophils % 0.3 %; Eosinophils # 0.2 K/mcL (0.0-0.6); Eosinophils % 2.7 %; Hematocrit 37.4 % (37.5-50.1); Hemoglobin 12.2 g/dL (12.9-16.9); Immature Granulocytes % 0.3 % (0-4); Lymphocytes # 0.6 K/mcL (0.6-4.6); Lymphocytes % 8.3 %; Mean Corpuscular HGB Conc 32.6 g/dL (31.6-35.5); Mean Corpuscular Hemoglobin 34.3 pg (28.0-33.3); Mean Corpuscular Volume 105.1 fL (83.0-100.0); Monocytes # 0.9 K/mcL (0.0-1.3); Monocytes % 13.1 %; Neutrophils # 5.1 K/mcL (1.6-8.9); Platelet Count 119 K/mcL (140-400); Red Blood Count 3.56 M/mcL (4.19-5.50); Red Cell Distribution Width 14.4 % (11.5-14.5); Segmented Neutrophils % 75.3 %
[2018-07-13 00:47] LABS: BUN/Creatinine Ratio 19 (6-26); Blood Urea Nitrogen 26 mg/dL (8-23); Calcium 9.3 mg/dL (8.6-10.3); Carbon Dioxide 30 mEq/L (23-29); Chloride 105 mEq/L (98-107); Glucose 122 mg/dL (70-105); Osmolality,Calculated 298 (280-300); Potassium 4.1 mEq/L (3.5-5.1); Sodium 141 mEq/L (136-145); Troponin I < 0.03 ng/mL (< 0.04); eGFR For Non-African Americans 51 (> 60)
[2018-07-13] MEDS ORDERED: Sennosides/Docusate Sodium TABLET PO PRN (02:14)
[2018-07-13] MEDS ORDERED: Bisacodyl 10 MG RECTAL SUPPOSITORY RC PRN (02:16)
--- NOTE | 2018-07-13 02:22 | Internal Med History&Physical ---
Date of Encounter: 07/13/18 Time of Encounter: 02:21 Internal Medicine - H&P: HPI Chief complaint: dyspnea Admitted From: Home Plans for Post Hospital Care: Home History of present illness: Jamal Woodruff is a 63 year old man with heart failure, hypertension, hyperlipidemia, COPD, rheumatoid arthritis, gout and chronic kidney disease who underwent right renal transplant and is currently on chronic suppressive therapy and remains a long-term longterm facility resident due to mental disability. His last admission here was a year ago for acute on chronic kidney injury. He is brought in here for evaluation of increasing shortness of breath. In the ER he was seen to have diffuse body swelling and pitting edema. Chest x- ray revealed pulmonary edema. He was hypoxic to the 80s on room air and dyspne ic. He was given 40mg of furosemide with adequate diuresis. Vitals: Reviewed General: Obese, sitting up in bed in NAD Skin: Flushed face. HEENT: Moist mucous membranes. No conjunctivae pallor. Neck: No lymphadenopathy. No JVD. No carotid bruits. No palpable thyroid. Chest: Diminished thoracic expansion. Reduced breath sounds with fine rales. Heart: Normal S1 & S2; rhythmic. No rubs or murmurs. Abdomen: Distended, soft and non-tender to palpation. No peritoneal reaction. Extremities: 2-3+ pitting edema in both legs. Neurological: Awake, alert and oriented to person, place and time. No focal deficits. Psych: Affect appropriate. Assessment/Plan 1. Acute hypoxic respiratory failure: Secondary to pulmonary edema in the setting of fluid overload/anasarca. Will start IV diuresis with furosemide 40mg BID and monitor urine output. Monitor kidney function closely. 2. Hypertension: Will resume home therapy. 3. CKD: Unclear what his baseline is however his current CrCl is better than what he had last year. Continue immunosuppressive therapy. 4. HF: Will check echo to assess EF to ensure this is not playing a role. Past Med Surg Social Fam HX - Past Medical History Medical history: CHF, hyperlipidemia, hypertension, RA, valvular heart disease Psychiatric history: depression - Past Surgical History Surgical History: orthopedic, other, other Additional surgical history: Kidney Transplant - Social History Smoking Status: Former smoker Smokeless Tobacco Status: No Alcohol use: occasionally Drug use: none - Family History Mother Living Status: Hx Family Cancer: Yes Father Living Status: Hx Family Cardiac Disorders: Yes Internal Medicine - H&P: Meds Acetaminophen [Non-Aspirin] 325 mg PO Q6H PRN 06/23/17 [History] Allopurinol [Zyloprim] 300 mg PO DAILY 06/23/17 [History] Aspirin [Lo-Dose Aspirin EC] 81 mg PO DAILY 06/23/17 [History] Docusate Sodium [Dok] 200 mg PO QAM 06/23/17 [History] Ergocalciferol (VITAMIN D2) [Vitamin D2] 50,000 unit PO DAILY 06/23/17 [History] Famotidine [Heartburn Prevention] 20 mg PO DAILY 06/23/17 [History] Furosemide [Lasix] 60 mg PO BID 06/23/17 [History] Loratadine [Allergy Relief] 10 mg PO DAILY 06/23/17 [History] Potassium Chloride [K-Tab ER] 20 meq PO QAM 06/23/17 [History] Pravastatin Sodium [Pravachol] 40 mg PO HS 06/23/17 [History] Sennosides/Docusate Sodium [Senna-Docusate Sodium Tablet] 2 tab PO DAILY PRN 06/23/17 [History] Sertraline [Zoloft] 25 mg PO DAILY 06/23/17 [History] Sulfamethoxazole/Trimeth DS [Bactrim DS] 1 tab PO QAM 06/23/17 [History] cycloSPORINE [Cyclosporine] 100 mg PO BID 06/23/17 [History] predniSONE [PredniSONE] 10 mg PO DAILY 06/23/17 [History] Bisacodyl [Gentle Laxative] 10 mg RC Q6H PRN 07/13/18 [History] Carvedilol [Coreg] 12.5 mg PO BID 07/13/18 [History] Fluticasone Furoate [Flonase Sensimist] 27.5 ml NS DAILY 07/13/18 [History] Lactulose 15 gm PO BID 07/13/18 [History] Magnesium Citrate [Citroma] 296 ml PO BID 07/13/18 [History] NIFEdipine [Nifedipine ER] 60 mg PO DAILY 07/13/18 [History] Allergy/AdvReac Type Severity Reaction Status Date / Time No Known Allergies Allergy Verified 06/19/15 16:58 All Systems PM: A 10-system review of systems was performed and is negative for pertinent f indings except as documented above in the HPI. - Constitutional Vitals: Temp Pulse Resp BP Pulse Ox 97.8 F 80 17 129/78 98 07/12/18 23:34 07/13/18 01:22 07/13/18 01:22 07/13/18 01:22 07/13/18 01:22 Exam: . Internal Med - H&P Results - Labs CBC & Chem 7: 07/12/18 23:59 07/12/18 23:59 Labs: Short CBC 07/12/18 Range/Units 23:59 WBC 6.7 (4.3-11.1) K/mcL Hgb 12.2 L (12.9-16.9) g/dL Hct 37.4 L (37.5-50.1) % Plt Count 119 L (140-400) K/mcL Neutrophils # 5.1 (1.6-8.9) K/mcL BMP 07/12/18 23:59 Sodium 141 Potassium 4.1 Chloride 105 Carbon Dioxide 30 H BUN 26 H Creatinine 1.40 H Glucose 122 H Calcium 9.3 Cardiac Enzymes 07/12/18 Range/Units 23:59 Troponin I < 0.03 (< 0.04) ng/mL - Impressions ITS Impressions Chest X-Ray 07/12/18 23:40 IMPRESSION: Findings in the chest suggest mild edema, asymmetrically greater on the right. Pneumonia less likely D/ / Emerson Moon / Emerson Moon Interpreting Provider: Emerson Moon - Time Spent With Patient Total time spent is greater than 50% in coordination of care (as documented) at patient's floor/unit and/or counseling patient: Greater than 35 minutes
[2018-07-13] MEDS: predniSONE 10 MG TABLET PO SCH (07:48)
[2018-07-13] MEDS: Aspirin Enteric Coated 81 MG Tablet PO SCH (07:48)
[2018-07-13] MEDS: Famotidine 20 MG TABLET PO SCH (07:48)
[2018-07-13] MEDS: *HR* Heparin 5,000 UNIT/ML VIAL SQ SCH ×3 (07:48→21:31)
[2018-07-13] MEDS: Loratadine 10 MG TABLET PO SCH (07:48)
[2018-07-13] MEDS: CycloSPORINE (SandIMMUNE) 100 MG CAPSULE PO SCH ×2 (07:49→21:24)
[2018-07-13] MEDS: Sulfamethoxazole/Trimeth DS 1 EACH TABLET PO SCH (07:49)
[2018-07-13] MEDS: NIFEdipine XL (24 HR) 60 MG TAB.ER.24 PO SCH (07:49)
[2018-07-13] MEDS: Fluticasone Propionate Nasal 50 MCG/SPRAY BOTTLE NS SCH (07:50)
[2018-07-13] MEDS: Lactulose Oral Soln 20 GM/30 ML UDC PO SCH ×2 (07:51→21:24)
[2018-07-13] MEDS ORDERED: Furosemide 40 MG/4 ML VIAL IVP SCH (09:00)
--- NOTE | 2018-07-13 09:07 | Internal Med Progress Note ---
<Huber Izaguirre - Last Filed: 07/13/18 12:58> Hospitalist Progress Note - Encounter Date of Encounter: 07/13/18 Time of Encounter: 09:02 - Subjective Interval History: Jamal Woodruff is a 63 year old man with heart failure, hypertension, hyperlipidemia, COPD, rheumatoid arthritis, gout and chronic kidney disease who underwent right renal transplant and is currently on chronic suppressive therapy and remains a [facility] due to mental disability. His last admission here was a year ago for acute on chronic kidney injury. He is brought in here for evaluation of increasing shortness of breath. In the ER he was seen to have diffuse body swelling and pitting edema. Chest x- ray revealed pulmonary edema. He was hypoxic to the 80s on room air and dyspneic. He was given 40mg of furosemide with adequate diuresis. Today, patient completed echo. He reports that he is not on home O2 but has been using 2L O2 for the last 3 days due to SOB. Unable to tell me where he obtained O2. Reports compliance with home lasix 60mg PO BID. - Exam Vitals: Temp Pulse Resp BP Pulse Ox 97.8 F 82 16 137/75 95 07/13/18 07:24 07/13/18 07:24 07/13/18 07:24 07/13/18 07:24 07/13/18 07:24 Exam: . - Assessment and Plan (1) COPD exacerbation Current Visit: No Status: Acute Assessment and Plan: Mild COPD exacerbation in the setting of fluid overload. Manage as above. No systemic signs, no need for antibiotics for now. (2) Acute respiratory failure with hypoxia Current Visit: No Status: Acute Assessment and Plan: Patient was hypoxic in ED in 80s that improved with lasix and O2. Acute respiratory failure in the setting of fluid overload, COPD exacerbation Cardiac work-up unremarkable Patient has lost >3kg since admission Patient is on lasix 60mg PO BID, consider increasing IV lasix to 40mg PO TID duoneb/RT as needed. Continue O2 for SPO2 > 90% Continue home prednisone (3) Fluid overload Current Visit: Yes Status: Acute Assessment and Plan: Likely cause of acute respiratory failure. Continue with lasix. Pending Echo to rule out CHF exacerbation (4) Hypoxia Current Visit: Yes Status: Acute Assessment and Plan: One episode of hypoxia on presentation, now resolved. Patient reports he is not on home O2, but does have 3L at home. He has just used it for the last 3 days. Continue with O2 as needed (currently on 4L), RT/bronchodilators for SPO2 > 90% (5) SOB (shortness of breath) Current Visit: No Status: Acute Assessment and Plan: Likely CHF exacerbation, fluid overload. Continue with lasix. Manage as above (6) CKD (chronic kidney disease), stage III Current Visit: No Status: Acute Assessment and Plan: Chronic and stable stabe 3a Avoid nephrotoxins. Strict I/Os (7) HTN (hypertension) Current Visit: No Status: Acute Assessment and Plan: chronic and stable. Continue home meds and daily vitals. (8) Constipation Current Visit: Yes Status: Acute Assessment and Plan: chronic and stable issue. Ok to continue home medications lactulose, Mg, Dulcolax, Colace, Senna - Time Spent with Patient Total time spent is greater than 50% in coordination of care (as documented) at patient's floor/unit and/or counseling patient: Internal Medicine: Result - Labs CBC & Chem 7: 07/12/18 23:59 07/12/18 23:59 Labs: Short CBC 07/12/18 Range/Units 23:59 WBC 6.7 (4.3-11.1) K/mcL Hgb 12.2 L (12.9-16.9) g/dL Hct 37.4 L (37.5-50.1) % Plt Count 119 L (140-400) K/mcL Neutrophils # 5.1 (1.6-8.9) K/mcL BMP 07/12/18 23:59 Sodium 141 Potassium 4.1 Chloride 105 Carbon Dioxide 30 H BUN 26 H Creatinine 1.40 H Glucose 122 H Calcium 9.3 Cardiac Enzymes 07/12/18 Range/Units 23:59 Troponin I < 0.03 (< 0.04) ng/mL - Impressions Impressions Chest X-Ray 07/12/18 23:40 IMPRESSION: Findings in the chest suggest mild edema, asymmetrically greater on the right. Pneumonia less likely D/ / Emerson Moon / Emerson Moon Interpreting Provider: Emerson Moon Consult Discharge Plan - Plan Referrals: Karley Brito MD [Primary Care Provider] - <SamirarobertronanLavell kay - Last Filed: 07/13/18 14:12> Hospitalist Progress Note - Encounter Date of Encounter: 07/13/18 - Exam Vitals: Temp Pulse Resp BP Pulse Ox 98.3 F 78 16 132/79 94 07/13/18 11:24 07/13/18 11:24 07/13/18 11:24 07/13/18 11:24 07/13/18 11:24 - Time Spent with Patient Total time spent is greater than 50% in coordination of care (as documented) at patient's floor/unit and/or counseling patient: Internal Medicine: Result - Labs CBC & Chem 7: 07/12/18 23:59 07/12/18 23:59 Labs: Short CBC 07/12/18 Range/Units 23:59 WBC 6.7 (4.3-11.1) K/mcL Hgb 12.2 L (12.9-16.9) g/dL Hct 37.4 L (37.5-50.1) % Plt Count 119 L (140-400) K/mcL Neutrophils # 5.1 (1.6-8.9) K/mcL BMP 07/12/18 23:59 Sodium 141 Potassium 4.1 Chloride 105 Carbon Dioxide 30 H BUN 26 H Creatinine 1.40 H Glucose 122 H Calcium 9.3 Cardiac Enzymes 07/12/18 Range/Units 23:59 Troponin I < 0.03 (< 0.04) ng/mL - Impressions Impressions Chest X-Ray 07/12/18 23:40 IMPRESSION: Findings in the chest suggest mild edema, asymmetrically greater on the right. Pneumonia less likely D/ / Emerson Moon / Emerson Moon Interpreting Provider: Emerson Moon Echocardiogram 07/13/18 02:19 Impressions: LVEF 45%. Mildly dilated left ventricle. Mild concentric left ventricular hypertrophy. Normal right ventricular structure and function. Moderate aortic regurgitation, which was turbulent and not well visualized. Severity possibly underestimated. Mild tricuspid regurgitation. Severe pulmonary hypertension. Estimated RVSP is 58 mmHg. Left Ventricular Wall Motion: Rest Echo Findings The apex, apical inferior, mid inferior, basal inferior, apical anterior, mid anterior, basal anterior, apical septal, mid inferior septal, basal inferior septal, apical lateral, mid anterior lateral, basal anterior lateral, mid anterior septal, mid inferior lateral, basal anterior septal and basal inferior lateral arora were hypokinetic. Findings: Study Quality * Technically adequate exam. ECG Findings * Normal sinus rhythm. Left Ventricle * LVEF 45%. * Mildly dilated left ventricle. * Mild concentric left ventricular hypertrophy. Right Ventricle * Normal right ventricular structure and function. Left Atrium * Mildly dilated left atrium. Right Atrium * Mildly dilated right atrium. Aortic Valve * Aortic valve not well visualized. * Moderate aortic regurgitation. * No aortic stenosis. Mitral Valve * Normal mitral valve structure and function. * No mitral stenosis. * Trace mitral regurgitation. Tricuspid Valve * Normal tricuspid valve structure. * Mild tricuspid regurgitation. * Severe pulmonary hypertension. * Estimated RVSP is 58 mmHg. * Estimated RA pressure is 5 mmHg. Pulmonic Valve * Pulmonic valve not well visualized. * Trace pulmonic regurgitation. Aorta * Normally sized aortic root. Pericardium * The pericardium appears normal. IVC * Normal IVC dimensions and inspiratory collapse. Pulmonary Artery * Normal visualized portions of the main pulmonary artery. - Attending Attestation I examined this patient and my medical decision-making was reviewed with the Resident Physician Dr. Izaguirre. I agree with the documented findings, disposition and treatment plan as described except to the extent set forth below. Mr. Woodruff is a 63 year old man with combined CHF, hypertension, hyperlipidemia, COPD, rheumatoid arthritis, gout and chronic kidney disease - stage 3 who underwent right renal transplant and is currently on chronic suppressive therapy and remains a [facility]term [facility] resident due to mental disability, pt was brought into ER for increasing shortness of breath. In the ER he was seen to have diffuse body swelling and pitting edema. Chest x-ray revealed pulmonary edema. He was hypoxic to the 80s on room air and dyspneic. He was admitted in the hospital and started him on aggressive IV diuresis. Pt stated he is feeling little better today. Still on 4 lit O2 though NC. Gen: A, A, O x3 Chest: Diminsihed BS b.l, mild to moderate wheezing, rales+, no ronchi Heart: S1S2+ RRR No Murmurs a/p 1. Acute combined systolic and diastolic CHF exacerbation 2. Morbid obesity 3. Severe hypoventilation syndrome 4. JIGAR 5. Acute on chronic hypoxic respiratory failure cont aggressive IV diuresis Lasix 40mg TID close monitoring Cr / Serum electrolytes cont Coreg, statin, and ASA 6. CKD-3 7. s/p renal transplantation cont home meds <Huber Izaguirre - Last Filed: 07/13/18 12:58> (7) HTN (hypertension) Qualifiers: Hypertension type: essential hypertension Qualified Code(s): I10 - Essential (primary) hypertension
[2018-07-13] MEDS ORDERED: Perflutren Lipid Microsphere 1.3 ML in 0.9 % Sodium Chloride 8.7 ML IVP ONE (09:21)
[2018-07-13] MEDS ORDERED: Ipratropium/Albuterol Neb 3 ML IH PRN ×2 (12:28)
[2018-07-13] MEDS: Furosemide 40 MG/4 ML VIAL IVP SCH ×2 (15:38→21:33)
[2018-07-14] MEDS: *HR* Heparin 5,000 UNIT/ML VIAL SQ SCH ×4 (05:12→21:09)
[2018-07-14] MEDS: Acetaminophen 325 MG TABLET PO PRN ×2 (05:17→20:11)
[2018-07-14 07:06] LABS: Calcium 9.9 mg/dL (8.6-10.3); Magnesium 1.7 mg/dL (1.6-2.6); Potassium 3.9 mEq/L (3.5-5.1)
[2018-07-14] MEDS: predniSONE 10 MG TABLET PO SCH (09:22)
[2018-07-14] MEDS: NIFEdipine XL (24 HR) 60 MG TAB.ER.24 PO SCH (09:22)
[2018-07-14] MEDS: Famotidine 20 MG TABLET PO SCH (09:22)
[2018-07-14] MEDS: Sulfamethoxazole/Trimeth DS 1 EACH TABLET PO SCH (09:22)
[2018-07-14] MEDS: Loratadine 10 MG TABLET PO SCH (09:22)
[2018-07-14] MEDS: CycloSPORINE (SandIMMUNE) 100 MG CAPSULE PO SCH ×2 (09:22→20:06)
[2018-07-14] MEDS: Aspirin Enteric Coated 81 MG Tablet PO SCH (09:22)
[2018-07-14] MEDS: Lactulose Oral Soln 20 GM/30 ML UDC PO SCH ×2 (09:23→20:05)
[2018-07-14] MEDS: Fluticasone Propionate Nasal 50 MCG/SPRAY BOTTLE NS SCH (09:23)
[2018-07-14] MEDS: Furosemide 40 MG/4 ML VIAL IVP SCH ×3 (09:24→21:08)
--- NOTE | 2018-07-14 12:24 | Internal Med Progress Note ---
<Huber Izaguirre - Last Filed: 07/14/18 13:54> Hospitalist Progress Note - Encounter Date of Encounter: 07/14/18 Time of Encounter: 09:00 - Subjective Interval History: Jamal Woodruff is a 63 year old man with heart failure, hypertension, hyperlipidemia, COPD, rheumatoid arthritis, gout and chronic kidney disease who underwent right renal transplant and is currently on chronic suppressive therapy and remains a long-term [facility] facility resident due to mental disability. His last admission here was a year ago for acute on chronic kidney injury. He is brought in here for evaluation of increasing shortness of breath. In the ER he was seen to have diffuse body swelling and pitting edema. Chest x- ray revealed pulmonary edema. He was hypoxic to the 80s on room air and dyspneic. He was given 40mg of furosemide with adequate diuresis. Echo with worsening EF 45%, hypokinetic wall motion. Worsening CHF. He reports that he is not on home O2 but has been using 2L O2 for the 3 days prior to coming to coming to the hospital due to his SOB. Patient is currently satting well on 4L NC. - Exam Vitals: Temp Pulse Resp BP Pulse Ox 98.6 F 86 17 125/77 95 07/14/18 11:38 07/14/18 11:38 07/14/18 11:38 07/14/18 11:38 07/14/18 11:38 Exam: Vitals: Reviewed General: Obese, sitting up in bed in NAD Neck: No lymphadenopathy. No JVD. No carotid bruits. No palpable thyroid. Heart: Normal S1 & S2; rhythmic. No rubs or murmurs. Pulm: CTAB. Reduced breath sounds with fine rales. Abdomen: Distended, soft and non-tender to palpation. No peritoneal reaction. Extremities: 2+ pitting edema in both legs. Neurological: Awake, alert and oriented to person, place and time. No focal deficits. Psych: Affect appropriate. - Assessment and Plan (1) CHF exacerbation Current Visit: Yes Status: Acute Assessment and Plan: Class III: symptoms with minimal activity. Fluid overloaded. CXR with mild edema, greater on right. Repeat Echo with decreased EF 45%, mild dilated left ventricle. severe pulmonary hypertension, abnormal motion Continue 40mg IV lasix TID Continue Coreg, statin, ASA Continue cardiac monitoring Patient continues to be on 4L O2. Will wean today. If patient continues to improve. Plan for discharge to [facility] tomorrow (2) COPD exacerbation Current Visit: Yes Status: Acute Mild COPD exacerbation. Does not use O2 at home Continue with steroids, duoneb, symbicort No systemic signs, no need for antibiotics for now as likely exacerbation by CHF exacerbation. (3) Acute respiratory failure with hypoxia Current Visit: No Status: Acute Assessment and Plan: Improved. Likely secondary to CHF exacerbation and COPD exacerbation. Patient was hypoxic in ED in 80s that improved with lasix and O2. Cardiac work-up unremarkable Patient has lost >3kg since admission Continue diuresing with IV lasix to 40mg PO TID duoneb/RT as needed. Continue O2 for SPO2 > 90% (4) CKD (chronic kidney disease), stage III Current Visit: No Status: Acute Assessment and Plan: s/p kidney transplant 20+ years ago Chronic and stable stage 3a Avoid nephrotoxins. Strict I/Os (5) HTN (hypertension) Current Visit: No Status: Acute Assessment and Plan: chronic and stable. Continue home meds and daily vitals. (6) Kidney transplant recipient Current Visit: Yes Status: Acute Continue chronic home prednisone (7) Constipation Current Visit: Yes Status: Acute Assessment and Plan: chronic and stable issue. Ok to continue home medications lactulose, Mg, Dulcolax, Colace, Senna DVT Prophylaxis: Heparin SubQ - Time Spent with Patient Total time spent is greater than 50% in coordination of care (as documented) at patient's floor/unit and/or counseling patient: Greater than 35 minutes Plan of Care Discussed with: patient Internal Medicine: Result - Labs CBC & Chem 7: 07/12/18 23:59 07/14/18 06:12 Labs: BMP 07/14/18 06:12 Sodium 142 Potassium 3.9 Chloride 101 Carbon Dioxide 31 H BUN 29 H Creatinine 1.50 H Glucose 106 H Calcium 9.9 Consult Discharge Plan - Plan Referrals: Karley Brito MD [Primary Care Provider] - <Lavell Edwards - Last Filed: 07/14/18 15:36> Hospitalist Progress Note - Encounter Date of Encounter: 07/14/18 - Exam Vitals: Temp Pulse Resp BP Pulse Ox 98.6 F 86 17 125/77 95 07/14/18 11:38 07/14/18 11:38 07/14/18 11:38 07/14/18 11:38 07/14/18 11:38 - Time Spent with Patient Total time spent is greater than 50% in coordination of care (as documented) at patient's floor/unit and/or counseling patient: Internal Medicine: Result - Labs CBC & Chem 7: 07/12/18 23:59 07/14/18 06:12 Labs: BMP 07/14/18 06:12 Sodium 142 Potassium 3.9 Chloride 101 Carbon Dioxide 31 H BUN 29 H Creatinine 1.50 H Glucose 106 H Calcium 9.9 - Attending Attestation I examined this patient and my medical decision-making was reviewed with the Resident Physician Dr. Izaguirre. I agree with the documented findings, disposition and treatment plan as described except to the extent set forth below. Mr. Woodruff is a 63 year old man with combined CHF, hypertension, hyperlipidemia, COPD, rheumatoid arthritis, gout and chronic kidney disease - stage 3 who underwent right renal transplant and is currently on chronic suppressive therapy and remains a long-term [facility] facility resident due to mental disability, pt was brought into ER for increasing shortness of breath. In the ER he was seen to have diffuse body swelling and pitting edema. Chest x-ray revealed pulmonary edema. He was hypoxic to the 80s on room air and dyspneic. He was admitted in the hospital and started him on aggressive IV diuresis. Pt stated he is feeling little better today. Still on 4 lit O2 though NC. No events over night. Gen: A, A, O x3 Chest: Diminished BS b.l, mild to moderate wheezing, rales+, no ronchi Heart: S1S2+ RRR No Murmurs a/p 1. Acute combined systolic and diastolic CHF exacerbation 2. Morbid obesity 3. Severe hypoventilation syndrome 4. JIGAR 5. Acute on chronic hypoxic respiratory failure cont aggressive IV diuresis Lasix 40mg TID strict I & O's close monitoring Cr / Serum electrolytes cont Coreg, statin, and ASA 6. CKD-3 7. s/p renal transplantation cont home meds Patient does need to stay in the hospital more than 2 midnights due to his complex medical problems. So we will change him to full admission today. I did review my colleague Dr. Berg's H & P including HPI, PMH, PSH, FH, SH, and ROS no changes noticed
[2018-07-15 04:38] LABS: Calcium 9.9 mg/dL (8.6-10.3); Potassium 3.7 mEq/L (3.5-5.1)
[2018-07-15] MEDS: *HR* Heparin 5,000 UNIT/ML VIAL SQ SCH (05:02)
[2018-07-15] MEDS: Famotidine 20 MG TABLET PO SCH (07:55)
[2018-07-15] MEDS: predniSONE 10 MG TABLET PO SCH (07:56)
[2018-07-15] MEDS: NIFEdipine XL (24 HR) 60 MG TAB.ER.24 PO SCH (07:56)
[2018-07-15] MEDS: Loratadine 10 MG TABLET PO SCH (07:56)
[2018-07-15] MEDS: CycloSPORINE (SandIMMUNE) 100 MG CAPSULE PO SCH (07:56)
[2018-07-15] MEDS: Sulfamethoxazole/Trimeth DS 1 EACH TABLET PO SCH (07:56)
[2018-07-15] MEDS: Lactulose Oral Soln 20 GM/30 ML UDC PO SCH (07:57)
[2018-07-15] MEDS: Aspirin Enteric Coated 81 MG Tablet PO SCH (07:57)
[2018-07-15] MEDS: Furosemide 40 MG/4 ML VIAL IVP SCH (08:00)
[2018-07-15] MEDS: Fluticasone Propionate Nasal 50 MCG/SPRAY BOTTLE NS SCH (08:12)
[2018-07-15 11:06] VITALS: BP 147/81
--- NOTE | 2018-07-15 11:41 | Discharge Summary ---
- NOTES TO OUTPATIENT PROVIDER Notes to Outpatient Provider: f/u with PCP in one week. f/u with Cardiology in 1-2 weeks. Pelase start taking Lasix 40mg PO BID from now.. Pelase check daily weights, if you gain more than 2 lbs, take an extra dose of lasix and call your PCP / Pool Manager Date of Encounter: 07/15/18 Time of Encounter: 11:37 - Discharge Diagnosis (1) Acute combined systolic and diastolic congestive heart failure Priority: Primary Status: Acute (2) Fluid overload Priority: Primary Status: Acute Qualifiers: Hypervolemia type: unspecified Qualified Code(s): E87.70 - Fluid overload, unspecified (3) Acute respiratory failure with hypoxia Priority: Primary Status: Acute (4) CKD (chronic kidney disease), stage III Priority: Secondary Status: Acute (5) S/P kidney transplant Priority: Secondary Status: Acute Hospital course: Mr. Woodruff is a 63 year old man with combined CHF, hypertension, hyperlipidemia, COPD, rheumatoid arthritis, gout and chronic kidney disease - stage 3 who underwent right renal transplant and is currently on chronic suppressive therapy and remains a long-term intermediate facility resident due to mental disability, pt was brought into ER for increasing shortness of breath. In the ER he was seen to have diffuse body swelling and pitting edema. Chest x-ray revealed pulmonary edema. He was hypoxic to the 80s on room air and dyspneic. He was admitted in the hospital and started him on aggressive IV diuresis. He was hypoixc initially required 4 lit O, now he is on 3 lit O2 feeling better. With aggressive diuresis IV Lasix 40mg TID he lost significant amount of fluids too. Pt stated he is feeling much better today. So will dc him back to ECF in stable condition with PO Lasix 40mg BID and also recommend to use continuous O2 at 3 lit. - Time Spent with Patient Total time spent providing and/or coordinating discharge services: - Discharge Medications Prescriptions: New Furosemide [Lasix] 40 mg PO BID #60 tablet Continued Sulfamethoxazole/Trimeth DS [Bactrim Ds] 1 tab PO QAM Sertraline [Zoloft] 25 mg PO DAILY Sennosides/Docusate Sodium [Senna-Docusate Sodium Tablet] 2 tab PO Q24H predniSONE [PredniSONE] 10 mg PO QAM Pravastatin Sodium [Pravachol] 40 mg PO HS Potassium Chloride [K-Tab ER] 20 meq PO QAM Acetaminophen [Non-Aspirin] 325 mg PO Q6H PRN PRN Reason: Fever/Pain Loratadine [Allergy Relief] 10 mg PO DAILY Famotidine [Heartburn Prevention] 20 mg PO DAILY Docusate Sodium [Dok] 200 mg PO QAM cycloSPORINE [Cyclosporine] 100 mg PO BID Aspirin [Lo-Dose Aspirin EC] 81 mg PO DAILY Allopurinol [Zyloprim] 300 mg PO DAILY Ergocalciferol (VITAMIN D2) [Vitamin D2] 50,000 unit PO SA Magnesium Citrate [Citroma] 296 ml PO Q12H PRN PRN Reason: Constipation Lactulose 15 gm PO BID Fluticasone Furoate [Flonase Sensimist] 2 spray NS DAILY Carvedilol [Coreg] 12.5 mg PO BID Bisacodyl [Gentle Laxative] 10 mg RC Q6H PRN PRN Reason: Constipation NIFEdipine [Nifedipine ER] 60 mg PO DAILY Discontinued Furosemide [Lasix] 60 mg PO QAM Home Medications: Acetaminophen [Non-Aspirin] 325 mg PO Q6H PRN 06/23/17 [History] Allopurinol [Zyloprim] 300 mg PO DAILY 06/23/17 [History] Aspirin [Lo-Dose Aspirin EC] 81 mg PO DAILY 06/23/17 [History] Docusate Sodium [Dok] 200 mg PO QAM 06/23/17 [History] Ergocalciferol (VITAMIN D2) [Vitamin D2] 50,000 unit PO SA 06/23/17 [History] Famotidine [Heartburn Prevention] 20 mg PO DAILY 06/23/17 [History] Loratadine [Allergy Relief] 10 mg PO DAILY 06/23/17 [History] Potassium Chloride [K-Tab ER] 20 meq PO QAM 06/23/17 [History] Pravastatin Sodium [Pravachol] 40 mg PO HS 06/23/17 [History] Sennosides/Docusate Sodium [Senna-Docusate Sodium Tablet] 2 tab PO Q24H 06/23/17 [History] Sertraline [Zoloft] 25 mg PO DAILY 06/23/17 [History] Sulfamethoxazole/Trimeth DS [Bactrim Ds] 1 tab PO QAM 06/23/17 [History] cycloSPORINE [Cyclosporine] 100 mg PO BID 06/23/17 [History] predniSONE [PredniSONE] 10 mg PO QAM 06/23/17 [History] Bisacodyl [Gentle Laxative] 10 mg RC Q6H PRN 07/13/18 [History] Carvedilol [Coreg] 12.5 mg PO BID 07/13/18 [History] Fluticasone Furoate [Flonase Sensimist] 2 spray NS DAILY 07/13/18 [History] Lactulose 15 gm PO BID 07/13/18 [History] Magnesium Citrate [Citroma] 296 ml PO Q12H PRN 07/13/18 [History] NIFEdipine [Nifedipine ER] 60 mg PO DAILY 07/13/18 [History] Furosemide [Lasix] 40 mg PO BID #60 tablet 07/15/18 [Rx] Allergies/Adverse Reactions: Allergy/AdvReac Type Severity Reaction Status Date / Time No Known Allergies Allergy Verified 06/19/15 16:58 Date of admission: 07/14/18 15:35 Primary care physician: Karley Brito MD Consults: 07/13/18 08:58 Consult to Casting Director [CONS] Routine Reason for SW Consult: from [facility] 07/13/18 09:01 Consult to Nurse Navigator [CONS] Routine Comment: CHF - Constitutional Vitals: Temp Pulse Resp BP Pulse Ox 97.9 F 83 16 147/81 95 07/15/18 11:00 07/15/18 11:00 07/15/18 11:00 07/15/18 11:00 07/15/18 11:00 General appearance: Present: cooperative, A&O X 3, no acute distress, answers questions appropriately Exam: a - Head Head exam: Present: atraumatic, normal inspection - Respiratory Respiratory exam: Present: decreased breath sounds, wheezes (mild). Absent: rales, respiratory distress, rhonchi - Cardiovascular Cardiovascular exam: Present: RRR, +S1, +S2. Absent: tachycardia - GI/Abdominal GI/Abdominal exam: Present: distended, normal bowel sounds, soft. Absent: rebound, rigid, tenderness - Extremities Exam Extremities exam: Present: pedal edema (improving). Absent: calf tenderness, tenderness - Back Exam Back exam: Absent: CVA tenderness (L), CVA tenderness (R) - Neurological Exam Neurological exam: Present: alert, oriented X3 - Psychiatric Psychiatric exam: Present: normal affect, normal mood - Skin Skin exam: Absent: rash - Patient Status Disposition: Transfer SNF Condition: Good Overall status at discharge: patient is back to baseline - Discharge Instructions Follow Up With: Karley Brito MD [Primary Care Provider] - David Lerner MD [Non-Partnered Physician] - - Diet and Activity Activity: increase activity as tolerated, wear oxygen at all times Diet: low salt diet
--- NOTE | 2018-07-15 15:47 | Physician Discharge Referral ---
ExtendedCare Referral Info Transfer To: ECF Provider in Charge after Transfer: PCP Institutional Level of Care: Skilled - Diagnosis (1) Acute combined systolic and diastolic congestive heart failure Status: Acute (2) Fluid overload Status: Acute (3) Acute respiratory failure with hypoxia Status: Acute (4) CKD (chronic kidney disease), stage III Status: Acute (5) S/P kidney transplant Status: Acute - Transfer Medications Prescriptions: Furosemide [Lasix] 40 mg PO BID #60 tablet Home Medications: Acetaminophen [Non-Aspirin] 325 mg PO Q6H PRN 06/23/17 [History] Allopurinol [Zyloprim] 300 mg PO DAILY 06/23/17 [History] Aspirin [Lo-Dose Aspirin EC] 81 mg PO DAILY 06/23/17 [History] Docusate Sodium [Dok] 200 mg PO QAM 06/23/17 [History] Ergocalciferol (VITAMIN D2) [Vitamin D2] 50,000 unit PO SA 06/23/17 [History] Famotidine [Heartburn Prevention] 20 mg PO DAILY 06/23/17 [History] Loratadine [Allergy Relief] 10 mg PO DAILY 06/23/17 [History] Potassium Chloride [K-Tab ER] 20 meq PO QAM 06/23/17 [History] Pravastatin Sodium [Pravachol] 40 mg PO HS 06/23/17 [History] Sennosides/Docusate Sodium [Senna-Docusate Sodium Tablet] 2 tab PO Q24H 06/23/17 [History] Sertraline [Zoloft] 25 mg PO DAILY 06/23/17 [History] Sulfamethoxazole/Trimeth DS [Bactrim Ds] 1 tab PO QAM 06/23/17 [History] cycloSPORINE [Cyclosporine] 100 mg PO BID 06/23/17 [History] predniSONE [PredniSONE] 10 mg PO QAM 06/23/17 [History] Bisacodyl [Gentle Laxative] 10 mg RC Q6H PRN 07/13/18 [History] Carvedilol [Coreg] 12.5 mg PO BID 07/13/18 [History] Fluticasone Furoate [Flonase Sensimist] 2 spray NS DAILY 07/13/18 [History] Lactulose 15 gm PO BID 07/13/18 [History] Magnesium Citrate [Citroma] 296 ml PO Q12H PRN 07/13/18 [History] NIFEdipine [Nifedipine ER] 60 mg PO DAILY 07/13/18 [History] Furosemide [Lasix] 40 mg PO BID #60 tablet 07/15/18 [Rx] Allergies/Adverse Reactions: Allergy/AdvReac Type Severity Reaction Status Date / Time No Known Allergies Allergy Verified 06/19/15 16:58 - Respiratory Orders Smoking Cessation: Smoking cessation has been advised. For more information, call the [place] Tobacco Quit Line at 2-594-LYUM-NOW. CERTIFICATION: I certify that the transfer of the above named patient to an Extended Care Facility is necessary for the continuing treatment of the diagnosis listed. The above information is true and accurate reflection of patient's current condition. Confidential - Redisclosure prohibited without a patient's written consent.
== END 2018-07-15 14:45 | DRG 291 ==
LOC: EMEROOARM 23:25 → 3BNU 23:25 → SUATTDRO 07-14 15:35
PROVIDERS: ADMIT Internal Medicine; ATTEND Family Medicine

== ENCOUNTER 2018-07-24 12:52 | Inpatient (IN) ==
[2018-07-24 13:32] LABS: Basophils % 0.4 %; Eosinophils # 0.2 K/mcL (0.0-0.6); Hematocrit 36.4 % (37.5-50.1); Hemoglobin 11.9 g/dL (12.9-16.9); Immature Granulocytes % 1.1 % (0-4); Lymphocytes # 0.3 K/mcL (0.6-4.6); Lymphocytes % 3.9 %; Mean Corpuscular HGB Conc 32.7 g/dL (31.6-35.5); Mean Corpuscular Hemoglobin 33.9 pg (28.0-33.3); Mean Corpuscular Volume 103.7 fL (83.0-100.0); Mean Platelet Volume 10.4 fL (9.4-12.4); Monocytes # 0.6 K/mcL (0.0-1.3); Monocytes % 7.5 %; Neutrophils # 6.9 K/mcL (1.6-8.9); Nucleated Red Blood Cells 0.2 /100 WBC (0); Platelet Count 127 K/mcL (140-400); Red Blood Count 3.51 M/mcL (4.19-5.50); Segmented Neutrophils % 85.1 %
--- NOTE | 2018-07-24 13:33 | Emergency Department Note ---
Disposition Clinical Impression: CHF (congestive heart failure), Dyspnea, Acute exacerbation of chronic obstructive airways disease Disposition: Admitted As Inpatient Condition: Fair Time of Disposition: 15:18 SOB HPI - General Chief Complaint: ED Shortness of Breath/Dyspnea Stated Complaint: NICCI Time Seen by Provider: 07/24/18 12:57 Source: patient, EMS Mode of arrival: EMS Limitations: no limitations Nursing Notes Reviewed: Yes Vital Signs Reviewed: Yes - History of Present Illness 63 yo male with PMHx of COPD, CHF, CKD s/p kidney transplant presents to the emergency department from [facility] with a chief complaint of shortness of breath. The patient states that he started feeling short of breath this morning at approximately 8:00. He was given 2 doses of Lasix at his senior care without any relief and EMS was called. The patient states he also has felt lightheaded, like he was going to pass out earlier today. He has had a nonproductive cough that started this morning. He denies fevers at home, chest pain, abdominal pain, nausea and vomiting, recent weight gain. - Related Data Home Medications Medication Instructions Recorded Confirmed Acetaminophen [Non-Aspirin] 325 mg PO Q6H PRN 06/23/17 07/24/18 Allopurinol [Zyloprim] 300 mg PO DAILY 06/23/17 07/24/18 Aspirin [Lo-Dose Aspirin EC] 81 mg PO DAILY 06/23/17 07/24/18 Docusate Sodium [Dok] 200 mg PO QAM 06/23/17 07/24/18 Ergocalciferol (VITAMIN D2) 50,000 unit PO SA 06/23/17 07/24/18 [Vitamin D2] Famotidine [Heartburn Prevention] 20 mg PO DAILY 06/23/17 07/24/18 Loratadine [Allergy Relief] 10 mg PO DAILY 06/23/17 07/24/18 Potassium Chloride [K-Tab ER] 20 meq PO QAM 06/23/17 07/24/18 Pravastatin Sodium [Pravachol] 40 mg PO HS 06/23/17 07/24/18 Sennosides/Docusate Sodium 2 tab PO Q24H 06/23/17 07/24/18 [Senna-Docusate Sodium Tablet] Sertraline [Zoloft] 25 mg PO DAILY 06/23/17 07/24/18 Sulfamethoxazole/Trimeth DS 1 tab PO QAM 06/23/17 07/24/18 [Bactrim Ds] cycloSPORINE [Cyclosporine] 100 mg PO BID 06/23/17 07/24/18 predniSONE [PredniSONE] 10 mg PO QAM 06/23/17 07/24/18 Bisacodyl [Gentle Laxative] 10 mg RC Q6H PRN 07/13/18 07/24/18 Carvedilol [Coreg] 12.5 mg PO BID 07/13/18 07/24/18 Fluticasone Furoate [Flonase 2 spray NS DAILY 07/13/18 07/24/18 Sensimist] Lactulose 15 gm PO BID 07/13/18 07/24/18 Magnesium Citrate [Citroma] 150 ml PO Q12H PRN 07/13/18 07/24/18 NIFEdipine [Nifedipine ER] 60 mg PO DAILY 07/13/18 07/24/18 Cefuroxime PO [Ceftin] 500 mg PO Q12HR 07/24/18 07/24/18 Previous Rx's Medication Instructions Recorded Furosemide [Lasix] 40 mg PO BID #60 tablet 07/15/18 Allergies Allergy/AdvReac Type Severity Reaction Status Date / Time No Known Allergies Allergy Verified 06/19/15 16:58 All systems ED: reviewed and negative except as stated. Review of Systems: As Per HPI Constitutional: Denies: fever, chills, weakness Cardiovascular: Reports: dyspnea on exertion. Denies: chest pain, palpitations, orthopnea, edema, syncope Respiratory: Reports: cough, dyspnea, wheezes. Denies: sputum production Gastrointestinal: Denies: abdominal pain, nausea, vomiting Musculoskeletal: Denies: back pain, neck pain Integumentary: Denies: rash Neurological: Denies: headache, weakness, numbness, paresthesias Endocrine: Reports: fatigue Past Medical History - Past Medical History Attestation: Yes The following information was validated with the patient. Source: patient Medical history: Reports: CHF, hyperlipidemia, hypertension, RA, valvular heart disease Surgical history: Reports: orthopedic, other, other Psychiatric history: Reports: depression - Social History Smoking Status: Former smoker Smokeless Tobacco Status: No Alcohol use: Reports: occasionally Drug use: Reports: none Physical Exam - General Limitations: no limitations General appearance: alert, in no apparent distress - Head Head exam: atraumatic, normocephalic - Eye Eye exam: Present: normal appearance, PERRL, EOMI - ENT ENT exam: normal exam, normal oropharynx - Neck Neck exam: Present: normal inspection. Absent: tenderness, lymphadenopathy - Chest Chest inspection: Present: normal inspection. Absent: tenderness - Respiratory Respiratory exam: Present: other (diminished breath sounds without crackles, accessory muscle use) - Cardiovascular Cardiovascular exam: Present: regular rate, normal rhythm - Abdominal Exam Abdominal exam: Present: soft, Non-Tender. Absent: distention, guarding, rebound, rigidity - Extremities Exam Extremities exam: Present: pedal edema (1+ bilaterally). Absent: tenderness - Neurological Exam Neurological exam: Present: alert, oriented X3 - Psychiatric Psychiatric exam: Present: normal affect, normal mood - Skin Skin exam: Present: warm, dry, intact Course Vital Signs Temperature 96.7 F L 07/24/18 12:55 Pulse Rate 93 07/24/18 12:55 Respiratory Rate 22 07/24/18 12:55 Blood Pressure 129/82 07/24/18 12:55 O2 Sat by Pulse Oximetry 100 07/24/18 12:55 Temperature 96.7 F L 07/24/18 12:55 Pulse Rate 84 07/24/18 14:15 Respiratory Rate 20 07/24/18 14:32 Blood Pressure 116/60 07/24/18 14:15 O2 Sat by Pulse Oximetry 96 07/24/18 14:32 Oxygen Delivery Oxygen Delivery Bipap Shortness of Breath/Dyspnea - [facility] Narrative Medical decision making narrative: Pt presents with increased shortness of breath suggestive of COPD exacerbation vs pneumonia vs new onset CHF. Cardiac workup will be initiated and the patient will be started on BiPAP to decrease his work of breathing, and will be given 2 Duonebs. 1400 - Pt is feeling slightly better. Labwork is at the patients baseline. CXR shows stable cardiomegaly with pleural effusions. Wheezing is more prominent to auscultation, and 2 more breathing treatments will be given. 1455 - Pt is feeling better and has clinically improved. This is likely secondary to a COPD exacerbation. As the patient is on chronic immunosuppression, IV steroids will not be initiated at this time. 1515 - Dr. Bower has accepted the patient for admission. - Medical Records Medical records reviewed: Yes I reviewed the patient's medical records. - Lab Data Lab results reviewed: Yes I reviewed the patient's lab results. Result diagrams: 07/25/18 07:02 07/25/18 08:24 Lab Results 07/24/18 07/24/18 07/24/18 Range/Units 13:13 13:13 13:13 WBC 8.1 (4.3-11.1) K/mcL RBC 3.51 L (4.19-5.50) M/mcL Hgb 11.9 L (12.9-16.9) g/dL Hct 36.4 L (37.5-50.1) % MCV 103.7 H (83.0-100.0) fL MCH 33.9 H (28.0-33.3) pg MCHC 32.7 (31.6-35.5) g/dL RDW 14.0 (11.5-14.5) % Plt Count 127 L (140-400) K/mcL MPV 10.4 (9.4-12.4) fL Immature Gran % 1.1 (0-4) % Seg Neutrophils % 85.1 % Lymphocytes % 3.9 % Monocytes % 7.5 % Eosinophils % 2.0 % Basophils % 0.4 % Neutrophils # 6.9 (1.6-8.9) K/mcL Lymphocytes # 0.3 L (0.6-4.6) K/mcL Monocytes # 0.6 (0.0-1.3) K/mcL Eosinophils # 0.2 (0.0-0.6) K/mcL Basophils # 0.0 (0.0-0.2) K/mcL Nucleated RBCs/100 WBC 0.2 H (0) /100 WBC Sodium 139 (136-145) mEq/L Potassium 4.7 (3.5-5.1) mEq/L Chloride 99 (98-107) mEq/L Carbon Dioxide 36 H (23-29) mEq/L BUN 22 (8-23) mg/dL Creatinine 1.27 (0.70-1.30) mg/dL Est GFR ( Amer) > 60 (> 60) Est GFR (Non-Af Amer) 57 L (> 60) BUN/Creatinine Ratio 17 (6-26) Glucose 162 H (70-105) mg/dL Calculated Osmolality 295 (280-300) Calcium 10.0 (8.6-10.3) mg/dL Troponin I < 0.03 (< 0.04) ng/mL B-Natriuretic Peptide 329 H (Less than 100) pg/mL - Radiology Data Radiology results reviewed: Yes I reviewed the patient's radiology results. - EKG Data EKG attestation: Yes I reviewed and interpreted this EKG. EKG results narrative: EKG obtained at 12:59 on 07/24/2018 Heart rate 92 bpm, CA interval 52, QRS duration 104, QTC 390, QTC 483 Sinus rhythm without any ST segment elevations or depressions. Wandering baseline without any overt T-wave abnormalities. Relatively unchanged when compared to previous EKG dated 07/13/2018. Attestation Statement - Attestation Attestation: Resident Attestation: I examined this patient and my medical decision making was reviewed with the Resident Physician. I agree with the documented findings, disposition and treatment plan as described except to the extent set forth below. We independently had [id number] contact with the patient. Patient presented for evaluation of shortness of breath. Patient with previous kidney transplant. Patient with mild increased swelling of the lower extremities. Patient with associated wheezing. Patient will be treated for possible reactive airway as well as undergo further evaluation of possible pneumonia or CHF. Patient will likely require admission. Patient with diffuse wheezing bilaterally. Mild respiratory distress.
[2018-07-24] MEDS ORDERED: Ipratropium/Albuterol Neb 3 ML IH ONE (13:34)
[2018-07-24 13:46] LABS: BUN/Creatinine Ratio 17 (6-26); Blood Urea Nitrogen 22 mg/dL (8-23); Carbon Dioxide 36 mEq/L (23-29); Chloride 99 mEq/L (98-107); Glucose 162 mg/dL (70-105); Osmolality,Calculated 295 (280-300); Potassium 4.7 mEq/L (3.5-5.1); Sodium 139 mEq/L (136-145); Troponin I < 0.03 ng/mL (< 0.04); eGFR For Non-African Americans 57 (> 60)
[2018-07-24] MEDS ORDERED: Albuterol 2.5 MG/3 ML NEBULIZER IH ONE (14:10)
[2018-07-24] MEDS ORDERED: Bisacodyl 10 MG RECTAL SUPPOSITORY RC PRN (15:31)
--- NOTE | 2018-07-24 15:52 | Internal Med History&Physical ---
Date of Encounter: 07/24/18 Time of Encounter: 15:49 Internal Medicine - H&P: HPI Chief complaint: SOB Admitted From: Long-term Nursing Facility Plans for Post Hospital Care: Transfer [employer] Care History of present illness: Mr. Woodruff is a 63 year old man with combined CHF, hypertension, hyperlipidemia, COPD, rheumatoid arthritis, gout and chronic kidney disease - stage 3 who underwent right renal transplant in 1992 and is currently on chronic suppressive therapy and remains a long-term detention facility resident due to mental disability, pt was brought into ER for increasing shortness of breath this vannesa Kirkland was just discharged from here on 07/15 for the similar episode. He was discharged on 4 L NC at that time. In the ER he was seen to have diffuse body swelling and pitting edema. Chest x-ray revealed pulmonary edema. He was placed BIPAP. He was admitted in the hospital and started him on aggressive IV diuresis. Patient does has dry cough on and off for few days, denies fever and chills. Past Med Surg Social Fam HX - Past Medical History Medical history: CHF, hyperlipidemia, hypertension, RA, valvular heart disease Psychiatric history: depression - Past Surgical History Surgical History: orthopedic, other, other Additional surgical history: Kidney Transplant - Social History Smoking Status: Former smoker Smokeless Tobacco Status: No Alcohol use: occasionally Drug use: none - Family History Mother Living Status: Hx Family Cancer: Yes Father Living Status: Hx Family Cardiac Disorders: Yes Internal Medicine - H&P: Meds Acetaminophen [Non-Aspirin] 325 mg PO Q6H PRN 06/23/17 [History] Allopurinol [Zyloprim] 300 mg PO DAILY 06/23/17 [History] Aspirin [Lo-Dose Aspirin EC] 81 mg PO DAILY 06/23/17 [History] Docusate Sodium [Dok] 200 mg PO QAM 06/23/17 [History] Ergocalciferol (VITAMIN D2) [Vitamin D2] 50,000 unit PO SA 06/23/17 [History] Famotidine [Heartburn Prevention] 20 mg PO DAILY 06/23/17 [History] Loratadine [Allergy Relief] 10 mg PO DAILY 06/23/17 [History] Potassium Chloride [K-Tab ER] 20 meq PO QAM 06/23/17 [History] Pravastatin Sodium [Pravachol] 40 mg PO HS 06/23/17 [History] Sennosides/Docusate Sodium [Senna-Docusate Sodium Tablet] 2 tab PO Q24H 06/23/17 [History] Sertraline [Zoloft] 25 mg PO DAILY 06/23/17 [History] Sulfamethoxazole/Trimeth DS [Bactrim Ds] 1 tab PO QAM 06/23/17 [History] cycloSPORINE [Cyclosporine] 100 mg PO BID 06/23/17 [History] predniSONE [PredniSONE] 10 mg PO QAM 06/23/17 [History] Bisacodyl [Gentle Laxative] 10 mg RC Q6H PRN 07/13/18 [History] Carvedilol [Coreg] 12.5 mg PO BID 07/13/18 [History] Fluticasone Furoate [Flonase Sensimist] 2 spray NS DAILY 07/13/18 [History] Lactulose 15 gm PO BID 07/13/18 [History] Magnesium Citrate [Citroma] 296 ml PO Q12H PRN 07/13/18 [History] NIFEdipine [Nifedipine ER] 60 mg PO DAILY 07/13/18 [History] Furosemide [Lasix] 40 mg PO BID #60 tablet 07/15/18 [Rx] Allergy/AdvReac Type Severity Reaction Status Date / Time No Known Allergies Allergy Verified 06/19/15 16:58 All Systems PM: A 10-system review of systems was performed and is negative for pertinent fin dings except as documented above in the HPI. - Constitutional Vitals: Temp Pulse Resp BP Pulse Ox 96.7 F L 84 20 116/60 96 07/24/18 12:55 07/24/18 14:15 07/24/18 14:32 07/24/18 14:15 07/24/18 14:32 General appearance: Present: mild distress, A&O X 3, morbidly obese Exam: CONSTITUTIONAL: Patient appears as an age appropriate male well developed, in no acute distress. EYES Clear sclerae, bilateral pupils are equal, reactive to light and accommodation. Extraocular movements are intact RESPIRATORY: No accessory muscle use, bilateral reduced BS, scant crackles to auscultation, no wheezing, CARDIOVASCULAR: Regular heart rate, normal S1 and S2, no murmurs GASTROINTESTINAL: bowel sounds present, soft, no tenderness. No hepatosplenomegaly. No bilateral CVA tenderness MUSCULOSKELETAL: Joints in normal range of motion, no clubbing, +++ edema, no cyanosis. Bilateral peripheral pulses 2+ LYMPHATIC no lymphadenopathy in neck, groin and axilla bilaterally, no thyromegaly. NEUROLOGIC: CN II to XII are grossly intact, no focal neurological deficit. Deep tendon reflexes 2+ bilaterally. Normal light touch sensation to upper and lower extremity PSYCHIATRIC: Oriented x3, with good insight, mood is euthymic. No hallucinations or delusions. SKIN: Skin warm and dry, no rashes, no open wound. Internal Med - H&P Results - Labs CBC & Chem 7: 07/24/18 13:13 07/24/18 13:13 Labs: Short CBC 07/24/18 Range/Units 13:13 WBC 8.1 (4.3-11.1) K/mcL Hgb 11.9 L (12.9-16.9) g/dL Hct 36.4 L (37.5-50.1) % Plt Count 127 L (140-400) K/mcL Neutrophils # 6.9 (1.6-8.9) K/mcL BMP 07/24/18 13:13 Sodium 139 Potassium 4.7 Chloride 99 Carbon Dioxide 36 H BUN 22 Creatinine 1.27 Glucose 162 H Calcium 10.0 Cardiac Enzymes 07/24/18 Range/Units 13:13 Troponin I < 0.03 (< 0.04) ng/mL - Impressions ITS Impressions Chest X-Ray 07/24/18 12:59 IMPRESSION: CHF and pulmonary edema, stable from prior exam. D/ / Anthony Rahman MD / Anthony Rahman MD Interpreting Provider: Anthony Rahman MD - Summary of Assessment and Plan Summary of Assessment and Plan: This is a 63 year old male who has history of combined the diastolic and systolic CHF, stages 3 kidney disease, fluids overload, recurrent admissions was just a discharged on July 15 to [facility], come back for worsening shortness of breath since this morning. Chest x-ray shows pulmonary edema. Patient is going to be admitted for aggressive diuresis. Currently he is on BiPAP. Baseline he was on 4 L nasal cannula at the facility. #1 acute on chronic combined systolic and diastolic CHF exacerbation. We will start IV Lasix, fluids restriction, strict I&O, weight daily. #2 acute on chronic hypoxic respiratory failure requires BiPAP support. He was on 4 L nasal cannula at baseline in the ECF. We will continue diuresis, CXR x- ray did not show any pneumonia, he is afebrile has no productive cough. Likely from CHF pulmonary edema #3 severe anasarca and fluids overload from stages [address] a low-salt diet, IV Lasix fluids restrictions #4 morbid obesity with BMI 41.9 #5 hypertension we will continue home medications #6 history of end-stage renal disease stated post renal transplantation in 1992 continue cyclosporine prednisone and the Bactrim for prophylaxis #7 stages 3 kidney disease CKD III #8 debilitating halfway resident we will consult PTOT for deconditioning #9 gout continue allopurinol #10 DVT prophylasix, heparin SC - Time Spent With Patient Total time spent is greater than 50% in coordination of care (as documented) at patient's floor/unit and/or counseling patient: Greater than 35 minutes
[2018-07-24] MEDS ORDERED: Naloxone 0.4 MG/ML INJ IVP PRN (16:05)
[2018-07-24] MEDS ORDERED: Ondansetron ODT 4 MG TAB.RAPDIS SL PRN (16:05)
--- NOTE | 2018-07-24 16:20 | Electrocardiograph Report ---
[place] [id number] Test Date: 2018-07-24 Pat Name: Jamal Woodruff Department: EXAM10 Room: Gender: M [employer] Messenger: : 1955 Requested By: Yoon Copeland Order Number: [id number] Reading MD: Vic Campuzano Measurements Intervals [place] Rate: 92 P: 0 OH: 52 QRS: -33 QRSD: 104 T: 172 QT: 390 QTc: 483 Interpretive Statements Sinus rhythm Short OH interval LVH with secondary repolarization abnormality Borderline prolonged QT interval Artifact Electronically Signed On 07-24-2018 16:18:38 EDT by Vic Campuzano
[2018-07-24] MEDS ORDERED: Furosemide 40 MG TABLET PO SCH (17:00)
[2018-07-24] MEDS: Acetaminophen 325 MG TABLET PO PRN (19:38)
[2018-07-24] MEDS: *HR* Heparin 5,000 UNIT/ML VIAL SQ SCH ×2 (19:39→21:59)
[2018-07-24] MEDS: Furosemide 40 MG/4 ML VIAL IVP SCH (19:39)
[2018-07-24] MEDS: Sennosides/Docusate Sodium TABLET PO SCH (19:39)
[2018-07-24] MEDS: CycloSPORINE (SandIMMUNE) 100 MG CAPSULE PO SCH (21:58)
[2018-07-25] MEDS: *HR* Heparin 5,000 UNIT/ML VIAL SQ SCH ×3 (05:53→21:14)
[2018-07-25 07:18] LABS: Basophils % 0.3 %; Eosinophils # 0.4 K/mcL (0.0-0.6); Eosinophils % 5.9 %; Hematocrit 33.4 % (37.5-50.1); Hemoglobin 11.2 g/dL (12.9-16.9); Immature Granulocytes % 0.7 % (0-4); Lymphocytes # 0.7 K/mcL (0.6-4.6); Lymphocytes % 10.1 %; Mean Corpuscular HGB Conc 33.5 g/dL (31.6-35.5); Mean Corpuscular Hemoglobin 34.1 pg (28.0-33.3); Mean Corpuscular Volume 101.8 fL (83.0-100.0); Mean Platelet Volume 10.1 fL (9.4-12.4); Monocytes # 0.8 K/mcL (0.0-1.3); Monocytes % 11.3 %; Neutrophils # 5.3 K/mcL (1.6-8.9); Platelet Count 125 K/mcL (140-400); Red Blood Count 3.28 M/mcL (4.19-5.50); Segmented Neutrophils % 71.7 %
[2018-07-25] MEDS: Aspirin Enteric Coated 81 MG Tablet PO SCH (07:26)
[2018-07-25] MEDS: Loratadine 10 MG TABLET PO SCH (07:26)
[2018-07-25] MEDS: predniSONE 10 MG TABLET PO SCH (07:26)
[2018-07-25] MEDS: NIFEdipine XL (24 HR) 60 MG TAB.ER.24 PO SCH (07:26)
[2018-07-25] MEDS: Furosemide 40 MG/4 ML VIAL IVP SCH ×2 (07:26→16:11)
[2018-07-25] MEDS: Sulfamethoxazole/Trimeth DS 1 EACH TABLET PO SCH (07:26)
[2018-07-25] MEDS: Fluticasone Propionate Nasal 50 MCG/SPRAY BOTTLE NS SCH (07:27)
[2018-07-25] MEDS: Famotidine 20 MG TABLET PO SCH (07:27)
[2018-07-25] MEDS: CycloSPORINE (SandIMMUNE) 100 MG CAPSULE PO SCH ×2 (07:27→21:14)
[2018-07-25 08:51] LABS: BUN/Creatinine Ratio 16 (6-26); Blood Urea Nitrogen 22 mg/dL (8-23); Calcium 10.1 mg/dL (8.6-10.3); Carbon Dioxide 39 mEq/L (23-29); Chloride 96 mEq/L (98-107); Glucose 98 mg/dL (70-105); Magnesium 1.8 mg/dL (1.6-2.6); Osmolality,Calculated 293 (280-300); Sodium 140 mEq/L (136-145); eGFR For Non-African Americans 54 (> 60)
[2018-07-25] MEDS: Sennosides/Docusate Sodium TABLET PO SCH (14:53)
--- NOTE | 2018-07-25 15:12 | Internal Med Progress Note ---
Hospitalist Progress Note - Encounter Date of Encounter: 07/25/18 Time of Encounter: 15:07 - Subjective Interval History: Patient is doing better, shortness of breath improved and he is on 4 L nasal cannula. Bilateral lower extremity edema improved still very edematous we will continue IV Lasix. - Exam Vitals: Temp Pulse Resp BP Pulse Ox 98.4 F 85 16 129/75 93 07/25/18 12:16 07/25/18 12:16 07/25/18 12:16 07/25/18 12:16 07/25/18 12:16 Exam: CONSTITUTIONAL: Patient appears as an age appropriate male well developed, in no acute distress. EYES Clear sclerae, bilateral pupils are equal, reactive to light and accommodation. Extraocular movements are intact RESPIRATORY: No accessory muscle use, bilateral reduced BS, scant crackles to auscultation, no wheezing, CARDIOVASCULAR: Regular heart rate, normal S1 and S2, no murmurs GASTROINTESTINAL: bowel sounds present, soft, no tenderness. No hepatosplenomegaly. No bilateral CVA tenderness MUSCULOSKELETAL: Joints in normal range of motion, no clubbing, +++ edema, no cyanosis. Bilateral peripheral pulses 2+ LYMPHATIC no lymphadenopathy in neck, groin and axilla bilaterally, no thyromegaly. NEUROLOGIC: CN II to XII are grossly intact, no focal neurological deficit. Deep tendon reflexes 2+ bilaterally. Normal light touch sensation to upper and lower extremity PSYCHIATRIC: Oriented x3, with good insight, mood is euthymic. No hallucinations or delusions. SKIN: Skin warm and dry, no rashes, no open wound. DVT Prophylaxis: Heparin subcutaneous - Summary of Assessment and Plan Summary of Assessment and Plan: This is a 63 year old male who has history of combined the diastolic and systolic CHF, stages 3 kidney disease, fluids overload, recurrent admissions was just a discharged on July 15 to [facility], come back for worsening shortness of breath since this morning. Chest x-ray shows pulmonary edema. Patient is going to be admitted for aggressive diuresis. Baseline he was on 4 L nasal cannula at the facility. Patient is doing well, weaned off BiPAP on 4 L nasal cannula #1 acute on chronic combined systolic and diastolic CHF exacerbation. Continue IV Lasix, fluids restriction, strict I&O, weight daily. #2 acute on chronic hypoxic respiratory failure requires BiPAP support. Weaned off BiPAP today, He was on 4 L nasal cannula at baseline in the ECF. CXR x-ray did not show any pneumonia, he is afebrile has no productive cough. Likely from CHF pulmonary edema, back to the baseline #3 severe anasarca and fluids overload from stages [address] a low-salt diet, IV Lasix, fluids restrictions #4 morbid obesity with BMI 41.9 #5 hypertension we will continue home medications #6 history of end-stage renal disease stated post renal transplantation in 1992 continue cyclosporine prednisone and the Bactrim for prophylaxis #7 stages 3 kidney disease CKD III #8 debilitating intermediate resident we will consult PTOT for deconditioning #9 gout continue allopurinol #10 DVT prophylasix, heparin SC Disposition patient will need a 1-2 days IV Lasix, then discharged back to ECF Primary PTOT We will follow up chest x-ray tomorrow - Time Spent with Patient Total time spent is greater than 50% in coordination of care (as documented) at patient's floor/unit and/or counseling patient: 25 - 35 minutes Plan of Care Discussed with: patient Internal Medicine: Result - Labs CBC & Chem 7: 07/25/18 07:02 07/25/18 08:24 Labs: Short CBC 07/25/18 Range/Units 07:02 WBC 7.4 (4.3-11.1) K/mcL Hgb 11.2 L (12.9-16.9) g/dL Hct 33.4 L (37.5-50.1) % Plt Count 125 L (140-400) K/mcL Neutrophils # 5.3 (1.6-8.9) K/mcL BMP 07/25/18 08:24 Sodium 140 Potassium 4.0 Chloride 96 L Carbon Dioxide 39 H BUN 22 Creatinine 1.34 H Glucose 98 Calcium 10.1 Consult Discharge Plan - Plan Referrals: NONE,PCP [Primary Care Provider] -
[2018-07-26 03:28] LABS: Basophils % 0.3 %; Eosinophils # 0.4 K/mcL (0.0-0.6); Hemoglobin 11.1 g/dL (12.9-16.9); Immature Granulocytes % 0.3 % (0-4); Lymphocytes # 0.9 K/mcL (0.6-4.6); Lymphocytes % 12.4 %; Mean Corpuscular HGB Conc 32.6 g/dL (31.6-35.5); Mean Corpuscular Hemoglobin 33.7 pg (28.0-33.3); Mean Corpuscular Volume 103.3 fL (83.0-100.0); Mean Platelet Volume 10.1 fL (9.4-12.4); Monocytes # 0.8 K/mcL (0.0-1.3); Monocytes % 11.7 %; Neutrophils # 5.1 K/mcL (1.6-8.9); Platelet Count 142 K/mcL (140-400); Red Blood Count 3.29 M/mcL (4.19-5.50); Red Cell Distribution Width 14.2 % (11.5-14.5); Segmented Neutrophils % 70.3 %
[2018-07-26 03:49] LABS: BUN/Creatinine Ratio 17 (6-26); Blood Urea Nitrogen 25 mg/dL (8-23); Calcium 9.6 mg/dL (8.6-10.3); Carbon Dioxide 39 mEq/L (23-29); Chloride 98 mEq/L (98-107); Glucose 89 mg/dL (70-105); Magnesium 1.9 mg/dL (1.6-2.6); Osmolality,Calculated 292 (280-300); Potassium 3.9 mEq/L (3.5-5.1); Sodium 139 mEq/L (136-145); eGFR For Non-African Americans 50 (> 60)
[2018-07-26 03:54] LABS: Platelet Estimate Slight Decrease (Normal)
[2018-07-26] MEDS: *HR* Heparin 5,000 UNIT/ML VIAL SQ SCH ×3 (05:42→21:31)
[2018-07-26] MEDS: Famotidine 20 MG TABLET PO SCH (07:16)
[2018-07-26] MEDS: NIFEdipine XL (24 HR) 60 MG TAB.ER.24 PO SCH (07:16)
[2018-07-26] MEDS: Sulfamethoxazole/Trimeth DS 1 EACH TABLET PO SCH (07:16)
[2018-07-26] MEDS: Furosemide 40 MG/4 ML VIAL IVP SCH (07:16)
[2018-07-26] MEDS: Aspirin Enteric Coated 81 MG Tablet PO SCH (07:16)
[2018-07-26] MEDS: CycloSPORINE (SandIMMUNE) 100 MG CAPSULE PO SCH ×2 (07:16→21:31)
[2018-07-26] MEDS: predniSONE 10 MG TABLET PO SCH (07:16)
[2018-07-26] MEDS: Loratadine 10 MG TABLET PO SCH (07:17)
[2018-07-26] MEDS: Fluticasone Propionate Nasal 50 MCG/SPRAY BOTTLE NS SCH (07:17)
[2018-07-26] MEDS ORDERED: Furosemide 40 MG/4 ML VIAL IVP SCH (09:00)
--- NOTE | 2018-07-26 11:22 | Internal Med Progress Note ---
Hospitalist Progress Note - Encounter Date of Encounter: 07/26/18 Time of Encounter: 11:12 - Subjective Interval History: I have seen and evaluated the patient at bedside. patient reports improvement on his breathing, reports the lightness on his legs is also improving. denies chest pain, nausea, abdominal pain or light headedness. - Exam Vitals: Temp Pulse Resp BP Pulse Ox 97.6 F 78 17 120/72 94 07/26/18 11:06 07/26/18 11:06 07/26/18 11:06 07/26/18 11:06 07/26/18 11:06 Exam: Vitals: Reviewed. General: Alert and oriented x4. In no distress Skin: Normal color, no rash, no lesions. HEENT: EOM, pupils equal, round and reactive. Cardiovascular: RRR, normal S1 & S2, no rubs, murmurs or gallops. Lungs: crackles at the bases b/l, no wheezes or rales. Abdomen: Obese, soft, non-tender, no rigidity. Extremities: 2-3+ pitting edema. Neurological: Normal cognition and motor skills. Rest of the physical exam is non contributory - Assessment and Plan (1) Congestive heart failure Current Visit: Yes Status: Acute Assessment and Plan: patient withc crackles at the bases bilaterally. 2-3+ pitting edema. Plan: decrease furosemide to 40mg/IV daily due to worsening kidney function strict intake and output water restriction to 1.5 litters a day. daily weight Continue low dose beta-oren (2) Acute exacerbation of chronic obstructive airways disease Current Visit: Yes Status: Chronic Assessment and Plan: no wheezing on auscultation. patient is back to his O2 requirement baseline. will add bronchodilators Q4RT PRN incentive spirometry (3) Acute kidney failure, unspecified Current Visit: No Status: Acute Assessment and Plan: patient with Hx of renal transplant. slightly worsening kidney function. furosemide dose decrease. cyclosporine level ordered. avoid nephrotoxic medications. will re-assess kidney function in the morning. if kidney function continues to worsen consider Nephrology consult. (4) HTN (hypertension) Current Visit: No Status: Chronic Assessment and Plan: Blood pressure is well controlled on furosemide, nifedipine and carvedilol. (5) Kidney transplant recipient Current Visit: No Status: Chronic Assessment and Plan: Patient is on prednisone, Bactrim and cyclosporine. (6) Pulmonary hypertension Current Visit: No Status: Chronic (7) Rheumatoid arteritis Current Visit: No Status: Chronic (8) Gout Current Visit: Yes Status: Chronic Assessment and Plan: Patient is on allopurinol 300 mg by mouth daily. (9) Hyperlipidemia Current Visit: Yes Status: Chronic Assessment and Plan: On atorvastatin 10 mg by mouth at bedtime. (10) Constipation Current Visit: No Status: Chronic Assessment and Plan: Patient is on senna plus plus Dulcolax. DVT Prophylaxis: On heparin subq - Summary of Assessment and Plan Summary of Assessment and Plan: patient to remain in the hospital due to CHF exacerbation. will continue diuresis. - Time Spent with Patient Total time spent is greater than 50% in coordination of care (as documented) at patient's floor/unit and/or counseling patient: Greater than 35 minutes (40) Plan of Care Discussed with: patient (and the nurse) Internal Medicine: Result - Labs CBC & Chem 7: 07/26/18 03:01 07/26/18 03:01 Labs: Short CBC 07/26/18 Range/Units 03:01 WBC 7.2 (4.3-11.1) K/mcL Hgb 11.1 L (12.9-16.9) g/dL Hct 34.0 L (37.5-50.1) % Plt Count 142 (140-400) K/mcL Neutrophils # 5.1 (1.6-8.9) K/mcL BMP 07/26/18 03:01 Sodium 139 Potassium 3.9 Chloride 98 Carbon Dioxide 39 H BUN 25 H Creatinine 1.43 H Glucose 89 Calcium 9.6 - Impressions Impressions Chest X-Ray 07/25/18 15:12 IMPRESSION: Multifocal airspace disease suggesting improvement of pulmonary edema D/ / Emerson Moon / Emerson Moon Interpreting Provider: Emerson Moon Consult Discharge Plan - Plan Referrals: NONE,PCP [Primary Care Provider] - (1) Congestive heart failure Qualifiers: Heart failure type: unspecified Heart failure chronicity: acute on chronic Qualified Code(s): I50.9 - Heart failure, unspecified (3) Acute kidney failure, unspecified Qualifiers: Acute renal failure type: unspecified Qualified Code(s): N17.9 - Acute kidney failure, unspecified (4) HTN (hypertension) Qualifiers: Hypertension type: essential hypertension Qualified Code(s): I10 - Essential (primary) hypertension (8) Gout Qualifiers: Gout site: unspecified site Gout etiology: unspecified cause Chronicity: chronic Presence of tophus: without tophus Qualified Code(s): M1A.9XX0 - Chronic gout, unspecified, without tophus (tophi) (9) Hyperlipidemia Qualifiers: Hyperlipidemia type: unspecified Qualified Code(s): E78.5 - Hyperlipidemia, unspecified (10) Constipation Qualifiers: Constipation type: unspecified constipation type Qualified Code(s): K59.00 - Constipation, unspecified
[2018-07-26] MEDS ORDERED: Albuterol 2.5 MG/3 ML NEBULIZER IH PRN (11:26)
[2018-07-26] MEDS: Sennosides/Docusate Sodium TABLET PO SCH (14:03)
[2018-07-27 02:51] LABS: Basophils % 0.3 %; Eosinophils # 0.3 K/mcL (0.0-0.6); Eosinophils % 5.1 %; Hematocrit 33.6 % (37.5-50.1); Hemoglobin 10.8 g/dL (12.9-16.9); Immature Granulocytes % 0.2 % (0-4); Lymphocytes # 0.7 K/mcL (0.6-4.6); Lymphocytes % 11.9 %; Mean Corpuscular HGB Conc 32.1 g/dL (31.6-35.5); Mean Corpuscular Hemoglobin 33.2 pg (28.0-33.3); Mean Corpuscular Volume 103.4 fL (83.0-100.0); Mean Platelet Volume 10.2 fL (9.4-12.4); Monocytes # 0.8 K/mcL (0.0-1.3); Monocytes % 12.5 %; Neutrophils # 4.2 K/mcL (1.6-8.9); Platelet Count 123 K/mcL (140-400); Red Blood Count 3.25 M/mcL (4.19-5.50); Red Cell Distribution Width 14.2 % (11.5-14.5)
[2018-07-27 03:11] LABS: Calcium 10.3 mg/dL (8.6-10.3); Magnesium 1.9 mg/dL (1.6-2.6); Phosphorous 3.5 mg/dL (2.7-4.5); Potassium 4.2 mEq/L (3.5-5.1)
[2018-07-27] MEDS: *HR* Heparin 5,000 UNIT/ML VIAL SQ SCH ×3 (06:04→20:56)
[2018-07-27] MEDS: Sulfamethoxazole/Trimeth DS 1 EACH TABLET PO SCH (08:16)
[2018-07-27] MEDS: NIFEdipine XL (24 HR) 60 MG TAB.ER.24 PO SCH (08:16)
[2018-07-27] MEDS: predniSONE 10 MG TABLET PO SCH (08:16)
[2018-07-27] MEDS: Loratadine 10 MG TABLET PO SCH (08:16)
[2018-07-27] MEDS: Famotidine 20 MG TABLET PO SCH (08:17)
[2018-07-27] MEDS: CycloSPORINE (SandIMMUNE) 100 MG CAPSULE PO SCH ×2 (08:17→20:56)
[2018-07-27] MEDS: Aspirin Enteric Coated 81 MG Tablet PO SCH (08:18)
[2018-07-27] MEDS: Fluticasone Propionate Nasal 50 MCG/SPRAY BOTTLE NS SCH (08:18)
--- NOTE | 2018-07-27 14:37 | Internal Med Progress Note ---
Hospitalist Progress Note - Encounter Date of Encounter: 07/27/18 Time of Encounter: 12:30 - Subjective Interval History: Patient reports improvement in his shortness of breath. No chest pain or worsening cough. No fever overnight. - Exam Vitals: Temp Pulse Resp BP Pulse Ox 98.5 F 85 18 116/74 93 07/27/18 11:23 07/27/18 11:23 07/27/18 11:23 07/27/18 11:23 07/27/18 11:23 Exam: Vitals: Reviewed. General: Alert and oriented x4. In no distress Cardiovascular: RRR, normal S1 & S2, no rubs, murmurs or gallops. Lungs: crackles at the lung bases bilaterally, no wheezes Abdomen: Obese, soft, non-tender, no rigidity. Extremities: 2-3+ pitting edema. Neurological: Normal cognition and motor skills. - Assessment and Plan (1) Congestive heart failure Current Visit: Yes Status: Acute Assessment and Plan: Echocardiogram on 07/13/18 showed EF of 45%, severe pulmonary HTN and mod AR Patient has been diuresed since admission on 07/24, Cr however trending up slightly will monitor off diuresis today, wean O2 as tolerated (was discharged at 3-4L during the last admission) fluid restrict 1.5L/day strict intake and output, daily weight Continue low dose beta-oren Not on ALICE inhibitor due to worsening kidney function (2) Acute kidney injury superimposed on CKD Current Visit: Yes Status: Acute Assessment and Plan: History of renal transplant, baseline creatinine around 1.3 Slightlly worsening, likely due to aggressive diuresis will monitor off diuresis today (3) COPD (chronic obstructive pulmonary disease) Current Visit: Yes Status: Chronic Assessment and Plan: Not in exacerbation, resume home inhalers (4) Pulmonary hypertension Current Visit: No Status: Chronic Assessment and Plan: Estimated RVSP of 58 mmHg on echocardiogram Follow-up outpatient with pulmonology (5) HTN (hypertension) Current Visit: No Status: Chronic Assessment and Plan: Resume home meds (6) Rheumatoid arteritis Current Visit: No Status: Chronic Assessment and Plan: No signs and symptoms of flareup, resume home meds including prednisone (7) Kidney transplant recipient Current Visit: No Status: Chronic Assessment and Plan: On immunosuppressant at home, continue (8) Gout Current Visit: Yes Status: Chronic Assessment and Plan: Continue allopurinol DVT Prophylaxis: SQ Hep - Time Spent with Patient Total time spent is greater than 50% in coordination of care (as documented) at patient's floor/unit and/or counseling patient: 25 - 35 minutes Plan of Care Discussed with: patient (Discussed with case management and RN) Internal Medicine: Result - Labs CBC & Chem 7: 07/27/18 01:15 07/27/18 01:15 Labs: Short CBC 07/27/18 Range/Units 01:15 WBC 6.1 (4.3-11.1) K/mcL Hgb 10.8 L (12.9-16.9) g/dL Hct 33.6 L (37.5-50.1) % Plt Count 123 L (140-400) K/mcL Neutrophils # 4.2 (1.6-8.9) K/mcL BMP 07/27/18 01:15 Sodium 139 Potassium 4.2 Chloride 96 L Carbon Dioxide 38 H BUN 25 H Creatinine 1.58 H Glucose 101 Calcium 10.3 Consult Discharge Plan - Plan Referrals: NONE,PCP [Primary Care Provider] - (1) Congestive heart failure Qualifiers: Heart failure type: combined systolic and diastolic Heart failure chronicity: acute on chronic Qualified Code(s): I50.43 - Acute on chronic combined systolic (congestive) and diastolic (congestive) heart failure (3) COPD (chronic obstructive pulmonary disease) Qualifiers: COPD type: unspecified COPD Qualified Code(s): J44.9 - Chronic obstructive pulmonary disease, unspecified (5) HTN (hypertension) Qualifiers: Hypertension type: essential hypertension Qualified Code(s): I10 - Essential (primary) hypertension (8) Gout Qualifiers: Gout site: unspecified site Gout etiology: unspecified cause Chronicity: chr onic Presence of tophus: without tophus Qualified Code(s): M1A.9XX0 - Chronic gout, unspecified, without tophus (tophi)
[2018-07-27] MEDS: Sennosides/Docusate Sodium TABLET PO SCH (16:44)
[2018-07-28 05:32] LABS: BUN/Creatinine Ratio 19 (6-26); Blood Urea Nitrogen 24 mg/dL (8-23); Calcium 10.4 mg/dL (8.6-10.3); Carbon Dioxide 34 mEq/L (23-29); Chloride 98 mEq/L (98-107); Glucose 108 mg/dL (70-105); Osmolality,Calculated 303 (280-300); Potassium 4.2 mEq/L (3.5-5.1); Sodium 144 mEq/L (136-145); eGFR For Non-African Americans 58 (> 60)
[2018-07-28] MEDS: *HR* Heparin 5,000 UNIT/ML VIAL SQ SCH ×3 (05:43→21:10)
[2018-07-28] MEDS: NIFEdipine XL (24 HR) 60 MG TAB.ER.24 PO SCH (10:07)
[2018-07-28] MEDS: CycloSPORINE (SandIMMUNE) 100 MG CAPSULE PO SCH ×2 (10:07→21:09)
[2018-07-28] MEDS: Furosemide 40 MG TABLET PO SCH (10:07)
[2018-07-28] MEDS: Aspirin Enteric Coated 81 MG Tablet PO SCH (10:07)
[2018-07-28] MEDS: predniSONE 10 MG TABLET PO SCH (10:07)
[2018-07-28] MEDS: Famotidine 20 MG TABLET PO SCH (10:08)
[2018-07-28] MEDS: Loratadine 10 MG TABLET PO SCH (10:08)
[2018-07-28] MEDS: Fluticasone Propionate Nasal 50 MCG/SPRAY BOTTLE NS SCH (10:09)
[2018-07-28] MEDS ORDERED: Furosemide 40 MG/4 ML VIAL IVP ONE (10:16)
[2018-07-28] MEDS: Sulfamethoxazole/Trimeth DS 1 EACH TABLET PO SCH (10:17)
--- NOTE | 2018-07-28 12:38 | Nephrology Consult Note ---
Date of Encounter: 07/28/18 Time of Encounter: 12:38 Assessment and Plan (1) Acute kidney injury superimposed on CKD Current Visit: Yes Status: Acute The patient has mild acute kidney injury superimposed on chronic kidney disease is likely the result of a physiologic response to diuresis especially in the face of a patient with severe pulmonary hypertension. His creatinine seems to fluctuate. I recommend avoiding nephrotoxic agents. Adjusting medications as needed for renal function. No acute need for dialysis. (2) Congestive heart failure Current Visit: Yes Status: Acute Patient would benefit from diuresis. Qualifiers: Heart failure type: combined systolic and diastolic Heart failure chronicity: acute on chronic Qualified Code(s): I50.43 - Acute on chronic combined systolic (congestive) and diastolic (congestive) heart failure (3) Dyspnea Current Visit: Yes Status: Acute Qualifiers: Qualified Code(s): R06.00 - Dyspnea, unspecified (4) CKD (chronic kidney disease), stage III Current Visit: No Status: Acute (5) HTN (hypertension) Current Visit: No Status: Chronic Titrate blood pressure medications as needed. Qualifiers: Hypertension type: essential hypertension Qualified Code(s): I10 - Essential (primary) hypertension (6) Kidney transplant recipient Current Visit: No Status: Chronic Continue current management. (7) Pulmonary hypertension Current Visit: No Status: Chronic Severe pulmonary hypertension. Makes diuresis difficult. If not already done he should be evaluated for treatment/management of his hypertension. (8) Anemia Current Visit: Yes Status: Acute Monitor for bleeding. Transfuse as needed. Qualifiers: Qualified Code(s): D64.9 - Anemia, unspecified (9) Hypercalcemia Current Visit: Yes Status: Acute Mild hypercalcemia of unclear etiology. Eliminate supplemental calcium. History of Present Illness - Reason for Consult Consult date: 07/29/18 Acute Kidney Injury, Chronic Kidney Disease - Chief Complaint gregory/ckd - History of Present Illness Mr. Woodruff is a 63 yo man with a history of ESRD s/p renal transplant and now with CKD Stage 3 who presents for SOB. He was transferred from [facility] and presented with dyspnea and swelling. He denies chest pain. He was treated with furosemide with subsequent rise in creatinine. [facility] was consult and for assistance with management of his diuresis as well as management of his transplanted Kidney. At the time of evaluation he has no new complaint. He states he is feeling somewhat better, but still dyspneic. He states he still has largely swelling although it is better as well. His review of systems otherwise is stable and negative. Past Med Surg Social Fam HX - Past Medical History Medical history: CHF, COPD, hyperlipidemia, hypertension, RA, valvular heart disease Psychiatric history: depression - Past Surgical History Surgical History: orthopedic, other, other Additional surgical history: Kidney Transplant - Social History Smoking Status: Former smoker Smokeless Tobacco Status: No Alcohol use: occasionally Drug use: none - Family History Mother Living Status: Hx Family Cancer: Yes Father Living Status: Hx Family Cardiac Disorders: Yes Medications and Allergies Acetaminophen [Non-Aspirin] 325 mg PO Q6H PRN 06/23/17 [History] Allopurinol [Zyloprim] 300 mg PO DAILY 06/23/17 [History] Aspirin [Lo-Dose Aspirin EC] 81 mg PO DAILY 06/23/17 [History] Docusate Sodium [Dok] 200 mg PO QAM 06/23/17 [History] Ergocalciferol (VITAMIN D2) [Vitamin D2] 50,000 unit PO SA 06/23/17 [History] Famotidine [Heartburn Prevention] 20 mg PO DAILY 06/23/17 [History] Loratadine [Allergy Relief] 10 mg PO DAILY 06/23/17 [History] Potassium Chloride [K-Tab ER] 20 meq PO QAM 06/23/17 [History] Pravastatin Sodium [Pravachol] 40 mg PO HS 06/23/17 [History] Sennosides/Docusate Sodium [Senna-Docusate Sodium Tablet] 2 tab PO Q24H 06/23/17 [History] Sertraline [Zoloft] 25 mg PO DAILY 06/23/17 [History] Sulfamethoxazole/Trimeth DS [Bactrim Ds] 1 tab PO QAM 06/23/17 [History] cycloSPORINE [Cyclosporine] 100 mg PO BID 06/23/17 [History] predniSONE [PredniSONE] 10 mg PO QAM 06/23/17 [History] Bisacodyl [Gentle Laxative] 10 mg RC Q6H PRN 07/13/18 [History] Carvedilol [Coreg] 12.5 mg PO BID 07/13/18 [History] Fluticasone Furoate [Flonase Sensimist] 2 spray NS DAILY 07/13/18 [History] Lactulose 15 gm PO BID 07/13/18 [History] Magnesium Citrate [Citroma] 150 ml PO Q12H PRN 07/13/18 [History] NIFEdipine [Nifedipine ER] 60 mg PO DAILY 07/13/18 [History] Furosemide [Lasix] 40 mg PO BID #60 tablet 07/15/18 [Rx] Cefuroxime PO [Ceftin] 500 mg PO Q12HR 07/24/18 [History] Allergy/AdvReac Type Severity Reaction Status Date / Time No Known Allergies Allergy Verified 06/19/15 16:58 Review of Systems All Systems: reviewed and no additional remarkable complaints except as stated (As documented in the history of present illness) Exam - Vital Signs Vital signs: Initial Vital Signs Temp Pulse Resp BP Pulse Ox 96.7 F L 93 22 129/82 100 07/24/18 12:55 07/24/18 12:55 07/24/18 12:55 07/24/18 12:55 07/24/18 12:55 Vital Signs - Last 8 Hours Temp Pulse Resp BP Pulse Ox 07/28/18 11:15 99.0 F 89 18 154/76 93 07/28/18 06:59 97.5 F L 87 18 155/77 92 Intake and Output 07/27/18 07/28/18 07/28/18 23:59 07:59 15:59 Intake Total 477 / 1217 240 / 1200 960 / 1200 Output Total 600 / 1300 500 / 500 Balance -123 / -83 -260 / 700 960 / 700 Intake: Oral 477 / 1217 240 / 1200 960 / 1200 Output: Urine 600 / 1300 500 / 500 Other: Meal Dinner Cherelle pop Breakfast Percent of Meal Consumed 100% 100% Weight 110.5 kg Patient Weight 07/28/18 23:59 Weight 110.5 kg - General Appearance General appearance: well-developed, well-nourished EENT: ATNC Neck: supple Respiratory: rales Cardiology: edema, regular rate Gastrointestinal: no tenderness Integumentary: warm and dry Neurologic: alert and oriented x3 Musculoskeletal: no cyanosis Results - Lab Results 07/29/18 05:11 07/29/18 05:11 Most recent lab results 07/28/18 04:00 Calcium 10.4 H Magnesium 2.0 Consult Discharge Plan - Plan Referrals: NONE,PCP [Primary Care Provider] -
--- NOTE | 2018-07-28 14:10 | Internal Med Progress Note ---
Hospitalist Progress Note - Encounter Date of Encounter: 07/28/18 Time of Encounter: 12:00 - Subjective Interval History: Patient complains of worsening shortness of breath today with SpO2 down to 90% on 4L of O2. No chest pain, palpitation. No fever overnight. - Exam Vitals: Temp Pulse Resp BP Pulse Ox 99.0 F 89 18 154/76 93 07/28/18 11:15 07/28/18 11:15 07/28/18 11:15 07/28/18 11:15 07/28/18 11:15 Exam: Vitals: Reviewed. General: Alert and oriented x4. In no distress Cardiovascular: RRR, normal S1 & S2, no rubs, murmurs or gallops. Lungs: Slightly more prominent rales at the lung bases bilaterally, no wheezes Abdomen: Obese, soft, non-tender, no rigidity. Extremities: 2-3+ pitting edema. Neurological: Normal cognition and motor skills. - Assessment and Plan (1) Congestive heart failure Current Visit: Yes Status: Acute Assessment and Plan: Echocardiogram on 07/13/18 showed EF of 45%, severe pulmonary HTN and mod AR Patient has been diuresed till 07/26 with increasing Cr, lasix held yesterday with improvement in his Cr however, pt complains of worsening symptom today with decreasing O2 sat and more prominent rales at the lung bases 1 dose of lasix 40mg today consult nephrology for the management of diuretics as he seems to be quite sensitive to it fluid restrict 1.5L/day strict intake and output, daily weight Continue low dose beta-oren Not on ALICE inhibitor due to fluctuating Cr (2) Acute kidney injury superimposed on CKD Current Visit: Yes Status: Acute Assessment and Plan: History of renal transplant, baseline creatinine around 1.3 lasix held yesterday with improving Cr but pt describes worsening SOB 1 dose of lasix as above nephrology consult (3) COPD (chronic obstructive pulmonary disease) Current Visit: Yes Status: Chronic Assessment and Plan: Not in exacerbation, resume home inhalers (4) Pulmonary hypertension Current Visit: No Status: Chronic Assessment and Plan: Estimated RVSP of 58 mmHg on echocardiogram Follow-up outpatient with pulmonology (5) HTN (hypertension) Current Visit: No Status: Chronic Assessment and Plan: Resume home meds (6) Rheumatoid arteritis Current Visit: No Status: Chronic Assessment and Plan: No signs and symptoms of flareup, resume home meds including prednisone (7) Kidney transplant recipient Current Visit: No Status: Chronic Assessment and Plan: On immunosuppressant at home, continue nephrology consult (8) Gout Current Visit: Yes Status: Chronic Assessment and Plan: Continue allopurinol DVT Prophylaxis: SQ Hep - Time Spent with Patient Total time spent is greater than 50% in coordination of care (as documented) at patient's floor/unit and/or counseling patient: 25 - 35 minutes Plan of Care Discussed with: patient (discussed with Nephrology) Internal Medicine: Result - Labs CBC & Chem 7: 07/27/18 01:15 07/28/18 04:00 Labs: BMP 07/28/18 04:00 Sodium 144 Potassium 4.2 Chloride 98 Carbon Dioxide 34 H BUN 24 H Creatinine 1.26 Glucose 108 H Calcium 10.4 H Consult Discharge Plan - Plan Referrals: NONE,PCP [Primary Care Provider] - (1) Congestive heart failure Qualifiers: Heart failure type: combined systolic and diastolic Heart failure chronicity: acute on chronic Qualified Code(s): I50.43 - Acute on chronic combined systolic (congestive) and diastolic (congestive) heart failure (3) COPD (chronic obstructive pulmonary disease) Qualifiers: COPD type: unspecified COPD Qualified Code(s): J44.9 - Chronic obstructive pulmonary disease, unspecified (5) HTN (hypertension) Qualifiers: Hypertension type: essential hypertension Qualified Code(s): I10 - Essential (primary) hypertension (8) Gout Qualifiers: Gout site: unspecified site Gout etiology: unspecified cause Chronicity: chronic Presence of tophus: without tophus Qualified Code(s): M1A.9XX0 - Chronic gout, unspecified, without tophus (tophi)
[2018-07-28] MEDS: Sennosides/Docusate Sodium TABLET PO SCH (15:42)
[2018-07-29] MEDS: Acetaminophen 325 MG TABLET PO PRN ×2 (03:45→17:20)
[2018-07-29] MEDS: *HR* Heparin 5,000 UNIT/ML VIAL SQ SCH ×3 (04:51→20:29)
[2018-07-29 05:41] LABS: ABG Base Excess 13 mEq/L (-2 to 3); ABG HCO3 41 mEq/L (21-27); ABG Oxygen Saturation 88 % (95-98); ABG PCO2 75 mmHg (35-45); ABG PH 7.35 pH Units (7.32-7.45); ABG PO2 60 mmHg (85-104); ABG TCO2 43 mEq/L (20-26)
[2018-07-29 05:43] LABS: Basophils % 0.3 %; Eosinophils # 0.3 K/mcL (0.0-0.6); Eosinophils % 4.3 %; Hematocrit 32.4 % (37.5-50.1); Hemoglobin 10.6 g/dL (12.9-16.9); Immature Granulocytes % 0.5 % (0-4); Lymphocytes # 0.7 K/mcL (0.6-4.6); Lymphocytes % 11.3 %; Mean Corpuscular HGB Conc 32.7 g/dL (31.6-35.5); Mean Corpuscular Volume 103.8 fL (83.0-100.0); Mean Platelet Volume 9.9 fL (9.4-12.4); Monocytes # 0.7 K/mcL (0.0-1.3); Monocytes % 12.3 %; Neutrophils # 4.1 K/mcL (1.6-8.9); Platelet Count 113 K/mcL (140-400); Red Blood Count 3.12 M/mcL (4.19-5.50); Red Cell Distribution Width 14.5 % (11.5-14.5); Segmented Neutrophils % 71.3 %
[2018-07-29 06:03] LABS: BUN/Creatinine Ratio 22 (6-26); Blood Urea Nitrogen 29 mg/dL (8-23); Calcium 10.6 mg/dL (8.6-10.3); Carbon Dioxide 39 mEq/L (23-29); Chloride 98 mEq/L (98-107); Glucose 102 mg/dL (70-105); Magnesium 1.8 mg/dL (1.6-2.6); Osmolality,Calculated 300 (280-300); Potassium 4.2 mEq/L (3.5-5.1); Sodium 142 mEq/L (136-145); eGFR For Non-African Americans 55 (> 60)
[2018-07-29] MEDS: Famotidine 20 MG TABLET PO SCH (08:00)
[2018-07-29] MEDS: NIFEdipine XL (24 HR) 60 MG TAB.ER.24 PO SCH (08:00)
[2018-07-29] MEDS: Furosemide 40 MG TABLET PO SCH (08:00)
[2018-07-29] MEDS: Loratadine 10 MG TABLET PO SCH (08:00)
[2018-07-29] MEDS: predniSONE 10 MG TABLET PO SCH (08:00)
[2018-07-29] MEDS: CycloSPORINE (SandIMMUNE) 100 MG CAPSULE PO SCH ×2 (08:00→20:29)
[2018-07-29] MEDS: Sulfamethoxazole/Trimeth DS 1 EACH TABLET PO SCH (08:00)
[2018-07-29] MEDS: Aspirin Enteric Coated 81 MG Tablet PO SCH (08:00)
[2018-07-29] MEDS: Fluticasone Propionate Nasal 50 MCG/SPRAY BOTTLE NS SCH (08:05)
--- NOTE | 2018-07-29 10:22 | Internal Med Progress Note ---
Hospitalist Progress Note - Encounter Date of Encounter: 07/29/18 Time of Encounter: 10:21 - Subjective Interval History: I have seen and evaluated the patient at bedside. patient reported improvement in his shortness of breath and edema of the lower extremities. He denies chest pain, nausea or vomiting. denies abdominal pain. - Exam Vitals: Temp Pulse Resp BP Pulse Ox 97.5 F L 85 18 136/76 93 07/29/18 07:27 07/29/18 07:27 07/29/18 07:27 07/29/18 07:27 07/29/18 07:27 Exam: Vitals: Reviewed. General: Alert and oriented x4. In no distress Cardiovascular: RRR, normal S1 & S2, no rubs, murmurs or gallops. Lungs: crackles at the bases b/l, no wheezes or rales. Abdomen: Obese, soft, non-tender, no rigidity. Extremities: 2+ pitting edema. Neurological: No focal neurological abnormalities Rest of the physical exam is non contributory - Assessment and Plan (1) Congestive heart failure Current Visit: Yes Status: Acute Assessment and Plan: patient with crackles at the bases b/l. total negative balance of 3.5 litters patient is on furosemide 40mg/PO daily continue fluid restrictive diet, plus daily weight. on a bb (2) HTN (hypertension) Current Visit: No Status: Chronic Assessment and Plan: BP is controlled on carvedilol, nifedipine and furosemide. (3) Pulmonary hypertension Current Visit: No Status: Chronic Assessment and Plan: caution needed with the diuresis. (4) Rheumatoid arteritis Current Visit: No Status: Chronic Assessment and Plan: No signs and symptoms of flareup. patient on prednisone 10mg/PO daily (5) Kidney transplant recipient Current Visit: No Status: Chronic Assessment and Plan: kidney function with slight improvement. nephrology involved in patient care, recommendations appreciated continue cyclosporine 100mg/PO BID and prednisone avoid nephrotoxic medications (6) Acute kidney injury superimposed on CKD Current Visit: Yes Status: Acute Assessment and Plan: Plan of care as above. (7) Gout Current Visit: Yes Status: Chronic Assessment and Plan: On allopurinol 300 mg by mouth daily. (8) COPD (chronic obstructive pulmonary disease) Current Visit: Yes Status: Chronic Assessment and Plan: no wheezing on auscultation. on bronchodilators PRN. (9) Respiratory failure with hypoxia and hypercapnia Current Visit: Yes Status: Chronic Assessment and Plan: nocturnal Bipap. titrate O2 supplement down if tolerated, keep O2Sat >92% DVT Prophylaxis: On subcutaneous Heparin - Summary of Assessment and Plan Summary of Assessment and Plan: patient to remain in the hospital due to JOSIE on ckd. potential discharge tomorrow morning. - Time Spent with Patient Total time spent is greater than 50% in coordination of care (as documented) at patient's floor/unit and/or counseling patient: Greater than 35 minutes (40) Plan of Care Discussed with: patient (and the nurse.) Internal Medicine: Result - Labs CBC & Chem 7: 07/29/18 05:11 07/29/18 05:11 Labs: Short CBC 07/29/18 Range/Units 05:11 WBC 5.8 (4.3-11.1) K/mcL Hgb 10.6 L (12.9-16.9) g/dL Hct 32.4 L (37.5-50.1) % Plt Count 113 L (140-400) K/mcL Neutrophils # 4.1 (1.6-8.9) K/mcL BMP 07/29/18 05:11 Sodium 142 Potassium 4.2 Chloride 98 Carbon Dioxide 39 H BUN 29 H Creatinine 1.31 H Glucose 102 Calcium 10.6 H - ABG Interpretation ABG results: ABG ABG pH 7.35 pH Units (7.32-7.45) 07/29/18 05:34 ABG pCO2 75 mmHg (35-45) H* 07/29/18 05:34 ABG pO2 60 mmHg (85-104) L 07/29/18 05:34 ABG O2 Saturation 88 % (95-98) L 07/29/18 05:34 Consult Discharge Plan - Plan Referrals: NONE,PCP [Primary Care Provider] - (1) Congestive heart failure Qualifiers: Heart failure type: combined systolic and diastolic Heart failure chronicity: acute on chronic Qualified Code(s): I50.43 - Acute on chronic combined systolic (congestive) and diastolic (congestive) heart failure (2) HTN (hypertension) Qualifiers: Hypertension type: essential hypertension Qualified Code(s): I10 - Essential (primary) hypertension (7) Gout Qualifiers: Gout site: unspecified site Gout etiology: unspecified cause Chronicity: chronic Presence of tophus: without tophus Qualified Code(s): M1A.9XX0 - Chronic gout, unspecified, without tophus (tophi) (8) COPD (chronic obstructive pulmonary disease) Qualifiers: COPD type: unspecified COPD Qualified Code(s): J44.9 - Chronic obstructive pulmonary disease, unspecified (9) Respiratory failure with hypoxia and hypercapnia Qualifiers: Chronicity: chronic Qualified Code(s): J96.11 - Chronic respiratory failure with hypoxia; J96.12 - Chronic respiratory failure with hypercapnia
--- NOTE | 2018-07-29 11:45 | Nephrology Progress Note ---
Date of Encounter: 07/29/18 Time of Encounter: 11:45 - Assessment and Plan (1) Acute kidney injury superimposed on CKD Current Visit: Yes Status: Acute The patient has mild acute kidney injury superimposed on chronic kidney disease is likely the result of a physiologic response to diuresis especially in the face of a patient with severe pulmonary hypertension. His creatinine seems to fluctuate. I recommend avoiding nephrotoxic agents. Adjusting medications as needed for renal function. No acute need for dialysis. Ok for discharge from a renal stanpoint. Patient requested an appointment in our clinic. He can follow-up in 4 weeks after discharge. He will need renal function panel 2 weeks after discharge. We will continue to follow with you. (2) Anemia Current Visit: Yes Status: Acute Qualifiers: Qualified Code(s): D64.9 - Anemia, unspecified (3) HTN (hypertension) Current Visit: No Status: Chronic Qualifiers: Hypertension type: essential hypertension Qualified Code(s): I10 - Essential (primary) hypertension (4) Kidney transplant recipient Current Visit: No Status: Chronic (5) Pulmonary hypertension Current Visit: No Status: Chronic Subjective Principal diagnosis: JOSIE/CKD Interval history: Patient seen and evaluated. No new complaint. His breathing is improved. His ROS is negative or stable. Objective - Vital Signs Vital signs: Vital Signs Temp Pulse Resp BP Pulse Ox 07/29/18 11:16 98.4 F 85 18 145/82 90 07/29/18 07:27 97.5 F L 85 18 136/76 93 07/29/18 03:01 97.6 F 88 16 142/79 97 07/28/18 23:33 98.1 F 90 16 154/86 92 07/28/18 21:03 92 07/28/18 20:07 92 07/28/18 19:36 98.5 F 86 16 150/80 92 07/28/18 15:05 97.8 F 83 18 124/78 91 Intake and Output 07/28/18 07/29/18 07/29/18 23:59 07:59 15:59 Intake Total 200 / 200 Output Total 770 / 1670 600 / 850 250 / 850 Balance -770 / -470 -600 / -650 -50 / -650 Intake: Oral 200 / 200 Output: Urine 770 / 1670 600 / 850 250 / 850 Other: Meal Dinner Breakfast Percent of Meal Consumed 50% 100% Weight 110.4 kg Patient Weight 07/29/18 23:59 Weight 110.4 kg - General Appearance General appearance: Present: well-developed, well-nourished EENT: Present: ATNC Neck: Present: supple Respiratory: Present: rhonchi Cardiology: Present: edema, regular rate Gastrointestinal: Present: no tenderness Integumentary: Present: warm and dry Neurologic: Present: alert and oriented x3 Musculoskeletal: Present: no cyanosis Psychiatric: Present: mood/affect appropriate - Lab 07/29/18 05:11 07/29/18 05:11 Most recent lab results 07/29/18 07/29/18 05:11 05:34 ABG pH 7.35 ABG pCO2 75 H* ABG pO2 60 L ABG HCO3 41 H ABG O2 Saturation 88 L Calcium 10.6 H Magnesium 1.8 Consult Discharge Plan - Plan Referrals: NONE,PCP [Primary Care Provider] -
[2018-07-29] MEDS: Sennosides/Docusate Sodium TABLET PO SCH (17:20)
[2018-07-30] MEDS: *HR* Heparin 5,000 UNIT/ML VIAL SQ SCH (06:03)
[2018-07-30 08:45] VITALS: BP 138/81
[2018-07-30] MEDS: CycloSPORINE (SandIMMUNE) 100 MG CAPSULE PO SCH (09:12)
[2018-07-30] MEDS: Furosemide 40 MG TABLET PO SCH (09:12)
[2018-07-30] MEDS: Loratadine 10 MG TABLET PO SCH (09:12)
[2018-07-30] MEDS: Sulfamethoxazole/Trimeth DS 1 EACH TABLET PO SCH (09:12)
[2018-07-30] MEDS: predniSONE 10 MG TABLET PO SCH (09:12)
[2018-07-30] MEDS: NIFEdipine XL (24 HR) 60 MG TAB.ER.24 PO SCH (09:12)
[2018-07-30] MEDS: Aspirin Enteric Coated 81 MG Tablet PO SCH (09:12)
[2018-07-30] MEDS: Fluticasone Propionate Nasal 50 MCG/SPRAY BOTTLE NS SCH (09:13)
[2018-07-30] MEDS: Famotidine 20 MG TABLET PO SCH (09:13)
[2018-07-30 09:27] LABS: BUN/Creatinine Ratio 20 (6-26); Blood Urea Nitrogen 28 mg/dL (8-23); Calcium 9.9 mg/dL (8.6-10.3); Carbon Dioxide 38 mEq/L (23-29); Chloride 98 mEq/L (98-107); Glucose 83 mg/dL (70-105); Magnesium 1.8 mg/dL (1.6-2.6); Osmolality,Calculated 297 (280-300); Phosphorous 3.3 mg/dL (2.7-4.5); Potassium 4.3 mEq/L (3.5-5.1); Sodium 141 mEq/L (136-145); eGFR For Non-African Americans 52 (> 60)
--- NOTE | 2018-07-30 09:50 | Discharge Summary ---
- NOTES TO OUTPATIENT PROVIDER Notes to Outpatient Provider: Have a repeat BMP within a week of hospital discharge. Date of Encounter: 07/30/18 Time of Encounter: 09:47 - Discharge Diagnosis (1) Congestive heart failure Priority: Primary Status: Resolved Qualifiers: Heart failure type: combined systolic and diastolic Heart failure chronicity: acute on chronic Qualified Code(s): I50.43 - Acute on chronic combined systolic (congestive) and diastolic (congestive) heart failure (2) HTN (hypertension) Priority: Secondary Status: Chronic Qualifiers: Hypertension type: essential hypertension Qualified Code(s): I10 - Essential (primary) hypertension (3) Pulmonary hypertension Priority: Secondary Status: Chronic (4) Rheumatoid arteritis Priority: Secondary Status: Chronic (5) Kidney transplant recipient Priority: Secondary Status: Chronic (6) Acute kidney injury superimposed on CKD Priority: Secondary Status: Resolved (7) Gout Priority: Secondary Status: Chronic Qualifiers: Gout site: unspecified site Gout etiology: unspecified cause Chronicity: chronic Presence of tophus: without tophus Qualified Code(s): M1A.9XX0 - Chronic gout, unspecified, without tophus (tophi) (8) COPD (chronic obstructive pulmonary disease) Priority: Secondary Status: Chronic Qualifiers: COPD type: unspecified COPD Qualified Code(s): J44.9 - Chronic obstructive pulmonary disease, unspecified (9) Respiratory failure with hypoxia and hypercapnia Priority: Secondary Status: Chronic Qualifiers: Chronicity: chronic Qualified Code(s): J96.11 - Chronic respiratory failure with hypoxia; J96.12 - Chronic respiratory failure with hypercapnia Hospital course: Mr. Woodruff is a 63 year old male H combined CHF, hypertension, hyperlipidemia, COPD, rheumatoid arthritis, gout and chronic kidney disease - stage 3 who underwent right renal transplant in 1992 and is currently on chronic suppressive therapy and remains a long-term half-way facility resident due to mental disability, pt was brought into ER for increasing shortness of breath this morning. chest x-ray: pulmonary vascular congestion. Patient was managed with BiPap, plus was started on IV diuresis and fluids restriction. 4.5 litters of fluids were removed during this hospitalization. Nephrology team involved in patient care during this admission. Patient's acute symptoms resolved, he is hemodynamically stable to be discharged back to ECF. Recommended to have a repeat BMP within a week of hospital discharge. Patient qualified for nocturnal BIPap 29/07 40% - Time Spent with Patient Total time spent providing and/or coordinating discharge services: Time spent: Greater than 30 minutes (35) - Discharge Medications Prescriptions: Continued Sulfamethoxazole/Trimeth DS [Bactrim Ds] 1 tab PO QAM Sertraline [Zoloft] 25 mg PO DAILY Sennosides/Docusate Sodium [Senna-Docusate Sodium Tablet] 2 tab PO Q24H predniSONE [PredniSONE] 10 mg PO QAM Pravastatin Sodium [Pravachol] 40 mg PO HS Potassium Chloride [K-Tab ER] 20 meq PO QAM Acetaminophen [Non-Aspirin] 325 mg PO Q6H PRN PRN Reason: Fever/Pain Loratadine [Allergy Relief] 10 mg PO DAILY Famotidine [Heartburn Prevention] 20 mg PO DAILY Docusate Sodium [Dok] 200 mg PO QAM cycloSPORINE [Cyclosporine] 100 mg PO BID Aspirin [Lo-Dose Aspirin EC] 81 mg PO DAILY Allopurinol [Zyloprim] 300 mg PO DAILY Ergocalciferol (VITAMIN D2) [Vitamin D2] 50,000 unit PO SA Magnesium Citrate [Citroma] 150 ml PO Q12H PRN PRN Reason: Constipation Lactulose 15 gm PO BID Fluticasone Furoate [Flonase Sensimist] 2 spray NS DAILY Carvedilol [Coreg] 12.5 mg PO BID Bisacodyl [Gentle Laxative] 10 mg RC Q6H PRN PRN Reason: Constipation NIFEdipine [Nifedipine ER] 60 mg PO DAILY Furosemide [Lasix] 40 mg PO BID #60 tablet Discontinued Cefuroxime PO [Ceftin] 500 mg PO Q12HR Home Medications: Acetaminophen [Non-Aspirin] 325 mg PO Q6H PRN 06/23/17 [History] Allopurinol [Zyloprim] 300 mg PO DAILY 06/23/17 [History] Aspirin [Lo-Dose Aspirin EC] 81 mg PO DAILY 06/23/17 [History] Docusate Sodium [Dok] 200 mg PO QAM 06/23/17 [History] Ergocalciferol (VITAMIN D2) [Vitamin D2] 50,000 unit PO SA 06/23/17 [History] Famotidine [Heartburn Prevention] 20 mg PO DAILY 06/23/17 [History] Loratadine [Allergy Relief] 10 mg PO DAILY 06/23/17 [History] Potassium Chloride [K-Tab ER] 20 meq PO QAM 06/23/17 [History] Pravastatin Sodium [Pravachol] 40 mg PO HS 06/23/17 [History] Sennosides/Docusate Sodium [Senna-Docusate Sodium Tablet] 2 tab PO Q24H 06/23/17 [History] Sertraline [Zoloft] 25 mg PO DAILY 06/23/17 [History] Sulfamethoxazole/Trimeth DS [Bactrim Ds] 1 tab PO QAM 06/23/17 [History] cycloSPORINE [Cyclosporine] 100 mg PO BID 06/23/17 [History] predniSONE [PredniSONE] 10 mg PO QAM 06/23/17 [History] Bisacodyl [Gentle Laxative] 10 mg RC Q6H PRN 07/13/18 [History] Carvedilol [Coreg] 12.5 mg PO BID 07/13/18 [History] Fluticasone Furoate [Flonase Sensimist] 2 spray NS DAILY 07/13/18 [History] Lactulose 15 gm PO BID 07/13/18 [History] Magnesium Citrate [Citroma] 150 ml PO Q12H PRN 07/13/18 [History] NIFEdipine [Nifedipine ER] 60 mg PO DAILY 07/13/18 [History] Furosemide [Lasix] 40 mg PO BID #60 tablet 07/15/18 [Rx] Allergies/Adverse Reactions: Allergy/AdvReac Type Severity Reaction Status Date / Time No Known Allergies Allergy Verified 06/19/15 16:58 Date of admission: 07/26/18 14:03 Primary care physician: PCP NONE Consults: 07/24/18 16:08 Consult to Occupational Therapy [CONS] Routine Comment: Evaluate, develop and implement POC Reason for Consult: deconditioning Does patient have active BEDREST order?: No Is patient medically & hemodynamically stable?: Yes Patient assessed for mobility or mobilized this visit?: Yes 07/27/18 08:22 Consult to Template Storage Clerk [CONS] Routine Reason for SW Consult: PATIENT FROM [facility] 07/27/18 13:15 Consult to Nurse Navigator [CONS] Routine Comment: CHF, COPD 07/28/18 10:42 Consult to Nephrology [CONS] Routine Consulting Provider: Kidney Stacey/DAILY/HAYDEN/ISABELLE Reason for Consult: s/p kidney transplant, extremely sensitive to diuretics Call Completed: Yes - Constitutional Vitals: Temp Pulse Resp BP Pulse Ox 98.0 F 85 17 138/81 90 07/30/18 08:43 07/30/18 08:43 07/30/18 08:43 07/30/18 08:43 07/30/18 08:43 General appearance: Present: mild distress, A&O X 3, morbidly obese Exam: Vitals: Reviewed. General: Alert and oriented x4. In no distress Cardiovascular: RRR, normal S1 & S2, no rubs, murmurs or gallops. Lungs: minimal crackles at the bases b/l, no wheezes or rales. Abdomen: Obese, soft, non-tender, no rigidity. Extremities: 2+ pitting edema. Neurological: No focal neurological abnormalities Rest of the physical exam is non contributory - Patient Status Disposition: Transfer SNF Condition: Fair Functional capacity at discharge: independent ambulation Overall status at discharge: patient is progressing back to baseline - Discharge Instructions Instructions: Heart Failure (DC), Chronic Obstructive Pulmonary Disease (DC) Follow Up With: Matias Lorenz MD [Partnered Physician] - 08/06/18 10:00 am (Our offices will be sending a packet to you by mail. Please fill out all paperwork and bring to appointment with you. Please arrive 15-20 minutes early to appointment. bring ID, insurance cards, paperwork, and all medications within the bottles to appointment. If you need to cancel or reschedule appointment call [phone] 24 hours prior to appointment. Please feel free to call us with any questions.) Additional Instructions: Follow-up appointments: If there is not an appointment listed below, please call your physician and schedule a follow-up appointment. If you have congestive heart failure and your symptoms return, make an appointment with your physician. Medication List: Carry an up to date list of medications you are taking at all time. We have given you an updated medication list including any new medications that you have been prescribed. Please provide that list to your primary provider Symptoms: If your condition changes or you experience any of the following symptoms, notify your physician immediately: Unusual or worsening pain, fever, persistent nausea and vomiting, bleeding, increase in swelling (especially in your legs), sudden weight gain, extreme dizziness, chest pain, increased drainage or redness from a wound or incision. Go to the emergency department if you experience a problem with breathing. Weights: If you have a history of swelling or shortness of breath, weigh yourself daily and notify your physician if you have a weight gain of two or more pounds in one day or 5 or more pounds in a week. If you experience any of the warning signs for stroke: Sudden numbness or weakness of the face, arm or leg; especially on one side of the body, sudden confusion, trouble speaking or understanding, sudden trouble seeing in one or both eyes, sudden trouble walking, dizziness, loss of balance or coordination, sudden sever headache with no cause; Call 911 or go to the emergency room. Stroke is a medical emergency. Some risk factors for stroke: Age, cigarette smoking, diabetes, excessive alcohol consumption, family history, high blood pressure, overweight, physical inactivity, prior stroke, heart attack, diagnosis of carotid artery stenosis or other artery disease. If you smoke, STOP: Smoking or tobacco use significantly increases your risk of heart and lung disease. Your chance of disease greatly increases if you continue to smoke. For more information, call the [place] tobacco quit line for smoking cessation 6-734-AFGN-NOW ( ) - Diet and Activity Activity: wear oxygen at all times (3-4 litters ) Diet: low salt diet
--- NOTE | 2018-07-30 09:57 | Physician Discharge Referral ---
ExtendedCare Referral Info Transfer To: [facility] - Diagnosis (1) Congestive heart failure Priority: Primary Status: Resolved (2) HTN (hypertension) Priority: Secondary Status: Chronic (3) Pulmonary hypertension Priority: Secondary Status: Chronic (4) Rheumatoid arteritis Priority: Secondary Status: Chronic (5) Kidney transplant recipient Priority: Secondary Status: Chronic (6) Acute kidney injury superimposed on CKD Priority: Secondary Status: Resolved (7) Gout Priority: Secondary Status: Chronic (8) COPD (chronic obstructive pulmonary disease) Priority: Secondary Status: Chronic (9) Respiratory failure with hypoxia and hypercapnia Priority: Secondary Status: Chronic Prognosis: Fair Aware of Diagnosis: Patient Aware of Prognosis: Patient - Transfer Medications Home Medications: Acetaminophen [Non-Aspirin] 325 mg PO Q6H PRN 06/23/17 [History] Allopurinol [Zyloprim] 300 mg PO DAILY 06/23/17 [History] Aspirin [Lo-Dose Aspirin EC] 81 mg PO DAILY 06/23/17 [History] Docusate Sodium [Dok] 200 mg PO QAM 06/23/17 [History] Ergocalciferol (VITAMIN D2) [Vitamin D2] 50,000 unit PO SA 06/23/17 [History] Famotidine [Heartburn Prevention] 20 mg PO DAILY 06/23/17 [History] Loratadine [Allergy Relief] 10 mg PO DAILY 06/23/17 [History] Potassium Chloride [K-Tab ER] 20 meq PO QAM 06/23/17 [History] Pravastatin Sodium [Pravachol] 40 mg PO HS 06/23/17 [History] Sennosides/Docusate Sodium [Senna-Docusate Sodium Tablet] 2 tab PO Q24H 06/23/17 [History] Sertraline [Zoloft] 25 mg PO DAILY 06/23/17 [History] Sulfamethoxazole/Trimeth DS [Bactrim Ds] 1 tab PO QAM 06/23/17 [History] cycloSPORINE [Cyclosporine] 100 mg PO BID 06/23/17 [History] predniSONE [PredniSONE] 10 mg PO QAM 06/23/17 [History] Bisacodyl [Gentle Laxative] 10 mg RC Q6H PRN 07/13/18 [History] Carvedilol [Coreg] 12.5 mg PO BID 07/13/18 [History] Fluticasone Furoate [Flonase Sensimist] 2 spray NS DAILY 07/13/18 [History] Lactulose 15 gm PO BID 07/13/18 [History] Magnesium Citrate [Citroma] 150 ml PO Q12H PRN 07/13/18 [History] NIFEdipine [Nifedipine ER] 60 mg PO DAILY 07/13/18 [History] Furosemide [Lasix] 40 mg PO BID #60 tablet 07/15/18 [Rx] Allergies/Adverse Reactions: Allergy/AdvReac Type Severity Reaction Status Date / Time No Known Allergies Allergy Verified 06/19/15 16:58 - Respiratory Orders Oxygen / L per min (3-4 litters) Smoking Cessation: Smoking cessation has been advised. For more information, call the [place] Tobacco Quit Line at 1-039-VOXT-NOW. - Advance Directives Code Status: Full Code - Mobility Orders Ambulate - Rehabiliation Orders Rehab Potential: Fair Rehab Orders: ROM Exercises, Evaluation for Physical Therapy, Evaluation for Occupational Therapy - Diet Orders Regular CERTIFICATION: I certify that the transfer of the above named patient to an Extended Care Facility is necessary for the continuing treatment of the diagnosis listed. The above information is true and accurate reflection of patient's current con dition. Confidential - Redisclosure prohibited without a patient's written consent.
== END 2018-07-30 12:50 | DRG 291 ==
LOC: 3BNU 12:52 → EMEROOARM 12:52 → SUATTDRO 17:02 → 3BNU 18:23 → SUATTDRO 07-26 14:03
PROVIDERS: ADMIT Student in an Organized Health Care Education/Training Program; ATTEND Internal Medicine